=== PATIENT | female | born 1950 | race African-American/Black ===

== ENCOUNTER 2017-01-22 04:46 | Inpatient (IN) | payer MEDICARE, MEDICAID ==
[~2017-01-22] VITALS: Ht 165.1 cm; Wt 54.6 kg
[~2017-01-22 04:46] MED LIST: AMLO10TA2 PO; B-COTAB10 PO; BACL-63 PO; CALC-317 PO; CINA30TA2 PO; DOXY-216 PO; FLUT500M2 INH; GEMF600T3 PO; MEGE40SU PO; METO-158 PO; NOR5T PO; OMEPRAZOLE PO; SEVE800T8 PO; TIOTCAP INH
[2017-01-22 05:27] LABS: Basophils # (auto) 0 uL; Basophils % (auto) 0.4 % (0.0-2.0); DEFINITIVE VIEW TRANSMISSION; Eosinophils # (auto) 0.1 uL; Eosinophils % (auto) 1.3 % (0.0-7.0); Hematocrit 37.1 % (36.0-46.0); Hemoglobin 12.4 g/dL (12.2-16.2); Lymphocytes # (auto) 1.4 uL; Lymphocytes % (auto) 18.6 % (10.0-50.0); Mean Corpuscular Hemoglobin 35.9 pg (28.0-32.0); Mean Corpuscular Hgb Conc. 33.4 g/dL (32.0-36.0); Mean Corpuscular Volume 107.4 fL (80.0-100.0); Mean Platelet Volume 6.8 fL (7.4-10.4); Monocytes # (auto) 0.7 uL; Monocytes % (auto) 9.4 % (0.0-12.0); Neutrophils # (auto) 5.2 uL; Neutrophils % (auto) 70.3 % (37.0-80.0); Platelet Count (auto) 401 10^3/uL (140-450); Red Cell Distribution Width 17.3 % (11.6-16.0); White Blood Cell 7.4 10^3/uL (4.4-10.8)
[2017-01-22 05:47] LABS: INR 1.08 (0.9-1.15); Partial Thromboplastin Time 27.1 sec (22.64-33.71); Prothrombin Time 11.1 sec (9.37-12.3)
[2017-01-22 05:54] LABS: Albumin 3.6 g/dL (3.4-5.0); Anion Gap 15 (5-15); Blood Urea Nitrogen 61 mg/dL (7-18); Calcium 8.5 mg/dL (8.5-10.1); Carbon Dioxide 24 mmol/L (21-32); Chloride 101 mmol/L (98-107); Glucose 85 mg/dL (74-106); Magnesium 2.9 mg/dL (1.6-2.6); Potassium 4.2 mmol/L (3.5-5.1); Sodium 140 mmol/L (136-145)
[2017-01-22 06:02] LABS: Alkaline Phosphatase 104 U/L (45-117); Aspartate Aminotransferase 14 U/L (15-37); BUN/Creatinine Ratio 4.8; Bilirubin, Total 0.4 mg/dL (0.2-1.0); GFR African American 4 mL/min; GFR Non-African American 3 mL/min; Total Protein 7.5 g/dL (6.4-8.2)
[2017-01-22] MEDS ORDERED: LORazepam 2MG/ML-1ML VIAL IV ONE ×2 (07:15→09:30)
[2017-01-22] MEDS ORDERED: LORazepam 2MG/ML-1ML VIAL IV PRN (12:15)
[2017-01-22] MEDS ORDERED: cloNIDine HCL 0.1 MG TAB PO PRN (12:15)
[2017-01-22] MEDS ORDERED: BACLOFEN 10 MG TAB PO PRN (12:15)
[2017-01-22] MEDS ORDERED: diphenhdrAMINE HCL 25 MG CAP PO PRN (12:30)
[2017-01-22] MEDS ORDERED: DOCUSATE SOD 100 MG CAP PO PRN (12:45)
[2017-01-22] MEDS ORDERED: MORPHINE SULF INJ 2 MG/ML SYRINGE 1ML IV PRN ×2 (12:45)
[2017-01-22] MEDS ORDERED: CINACALCET HYDROCHLORIDE 30 MG TAB PO ONE (12:45)
[2017-01-22] MEDS ORDERED: NITROGLYCERIN 0.4 MG SL TAB SL PRN (12:45)
[2017-01-22] MEDS ORDERED: ACETAMINOPHEN 325 MG TAB PO PRN (12:45)
[2017-01-22] MEDS ORDERED: TEMAZEPAM 15 MG CAP PO PRN (12:45)
[2017-01-22] MEDS ORDERED: ONDANSETRON HCL 4 MG/2 ML VIAL IV PRN (12:45)
[2017-01-22] MEDS ORDERED: ASPirin-EC 81 mg tab PO ONE (12:45)
[2017-01-22] MEDS ORDERED: amLODIPine BESYLATE 5 MG TAB PO ONE (13:15)
[2017-01-22] MEDS: B-COMPLEX W/ C & FOLIC ACID(NEPHROVITE TAB) PO SCH (13:15)
[2017-01-22] MEDS: CHOLECALCIFEROL (VITD3) 1,000 UNIT TAB PO SCH (13:15)
[2017-01-22] MEDS: LORazepam 2MG/ML-1ML VIAL IV PRN ×3 (13:19→20:32)
[2017-01-22] MEDS: GABAPENTIN 100 MG CAP PO SCH (13:30)
[2017-01-22] MEDS: MEGESTROL ACET 400MG/10ML ORAL SUSP PO SCH (13:30)
[2017-01-22] MEDS: SODIUM CHLOR 0.9% PF (SALINE LOCK) 10ML VIAL IV SCH ×2 (13:42→21:59)
[2017-01-22] MEDS: ENOXAPARIN SOD 30 MG/0.3 ML SYRINGE SC SCH (13:49)
[2017-01-22] MEDS ORDERED: METOPROLOL TARTRATE 50 MG TAB PO ONE (14:00)
[2017-01-22] MEDS: ALBUTEROL SULF 2.5 MG/0.5ML(0.5%) NEB SOLN NEB SCH ×2 (14:00→22:08)
[2017-01-22 17:10] VITALS: BP_SYST 167; BP_DIAS 90; BP_DIAS 96
[2017-01-22] MEDS: SEVELAMER 800 MG TAB PO SCH (18:00)
[2017-01-22 18:34] LABS: Urine Bilirubin Negative (Negative); Urine Color Yellow (Yellow); Urine Glucose TRACE mg/dL (Normal); Urine Ketone Negative (Negative); Urine Nitrite Negative (Negative); Urine RBC 6 /hpf (0 - 4); Urine Squamous Epithelial Cell FEW /hpf (<5); Urine Urobilinogen Normal (Negative); Urine pH 8.5 (5.0-8.0)
[2017-01-22 18:37] LABS: Urine Blood 2+ /uL (Negative)
[2017-01-22 20:00] VITALS: BP 154/100
[2017-01-22] MEDS: ATORVASTATIN 20 MG TAB PO SCH (21:53)
[2017-01-22] MEDS: METOPROLOL TARTRATE 50 MG TAB PO SCH (21:53)
[2017-01-22 22:00] VITALS: BP 154/100
[2017-01-22] MEDS ORDERED: GEMFIBROZIL 600 MG TAB PO SCH (22:00)
[2017-01-22] MEDS: BUDESONIDE (INHALATION) 0.5 MG/2 ML NEB NEB SCH (22:08)
[2017-01-22 22:49] VITALS: BP 151/100
[2017-01-23] VITALS (7 sets, daily range): BP systolic 132–185; BP diastolic 77–99
[2017-01-23] MEDS: LORazepam 2MG/ML-1ML VIAL IV PRN ×2 (03:22→16:15)
[2017-01-23] MEDS: SODIUM CHLOR 0.9% PF (SALINE LOCK) 10ML VIAL IV SCH ×3 (06:11→22:10)
[2017-01-23 06:32] LABS: Basophils # (auto) 0 uL; Basophils % (auto) 0.5 % (0.0-2.0); DEFINITIVE VIEW TRANSMISSION; Eosinophils # (auto) 0.1 uL; Eosinophils % (auto) 1.3 % (0.0-7.0); Hematocrit 33.7 % (36.0-46.0); Hemoglobin 11.1 g/dL (12.2-16.2); Lymphocytes # (auto) 0.9 uL; Lymphocytes % (auto) 14.2 % (10.0-50.0); Mean Corpuscular Hemoglobin 35.4 pg (28.0-32.0); Mean Corpuscular Hgb Conc. 32.9 g/dL (32.0-36.0); Mean Corpuscular Volume 107.5 fL (80.0-100.0); Mean Platelet Volume 7.1 fL (7.4-10.4); Monocytes # (auto) 0.6 uL; Monocytes % (auto) 9.6 % (0.0-12.0); Neutrophils # (auto) 4.9 uL; Neutrophils % (auto) 74.4 % (37.0-80.0); Platelet Count (auto) 365 10^3/uL (140-450); Red Cell Distribution Width 17.1 % (11.6-16.0); White Blood Cell 6.6 10^3/uL (4.4-10.8)
[2017-01-23 07:12] LABS: Potassium 4.8 mmol/L (3.5-5.1)
[2017-01-23 07:23] LABS: Albumin 3.3 g/dL (3.4-5.0); BUN/Creatinine Ratio 4.6; Bilirubin, Total 0.5 mg/dL (0.2-1.0); Calcium 8.2 mg/dL (8.5-10.1); Total Protein 6.8 g/dL (6.4-8.2)
[2017-01-23] MEDS: BUDESONIDE (INHALATION) 0.5 MG/2 ML NEB NEB SCH ×2 (07:26→22:26)
[2017-01-23] MEDS: ALBUTEROL SULF 2.5 MG/0.5ML(0.5%) NEB SOLN NEB SCH ×3 (07:26→22:26)
[2017-01-23] MEDS: SEVELAMER 800 MG TAB PO SCH ×3 (08:00→17:53)
[2017-01-23] MEDS: PANTOPRAZOLE 40 MG TAB PO SCH (10:00)
[2017-01-23] MEDS ORDERED: FLUTICASONE VILANTEROL IN SCH (10:00)
[2017-01-23] MEDS ORDERED: PATIENTS OWN MEDICATION PO SCH ×2 (10:00)
[2017-01-23] MEDS: METOPROLOL TARTRATE 50 MG TAB PO SCH ×2 (10:00→22:09)
[2017-01-23] MEDS: B-COMPLEX W/ C & FOLIC ACID(NEPHROVITE TAB) PO SCH (10:00)
[2017-01-23] MEDS: amLODIPine BESYLATE 5 MG TAB PO SCH (10:00)
[2017-01-23] MEDS: MEGESTROL ACET 400MG/10ML ORAL SUSP PO SCH (10:00)
[2017-01-23] MEDS: CHOLECALCIFEROL (VITD3) 1,000 UNIT TAB PO SCH (10:00)
[2017-01-23] MEDS: ASPirin-EC 81 mg tab PO SCH (10:00)
[2017-01-23] MEDS: GABAPENTIN 100 MG CAP PO SCH (10:00)
[2017-01-23] MEDS: SPIRIVA INHALER IN SCH (10:00)
[2017-01-23] MEDS: CINACALCET HYDROCHLORIDE 30 MG TAB PO SCH (10:00)
[2017-01-23] MEDS: ENOXAPARIN SOD 30 MG/0.3 ML SYRINGE SC SCH (10:40)
[2017-01-23] MEDS ORDERED: hydrALAZINE HCL 20 MG/ML VL IV PRN (15:15)
[2017-01-23] MEDS: SOD CHL 0.45% 1,000 ML IV SCH (16:20)
[2017-01-23] MEDS ORDERED: PHENYTOIN IV DILANTIN 1,000 MG in SODIUM CHL 0.9% 250 ML IV ONE (18:30)
[2017-01-23] MEDS: ATORVASTATIN 20 MG TAB PO SCH (22:09)
[2017-01-23] MEDS: PHENYTOIN SODIUM 100 MG CAP PO SCH (22:09)
[2017-01-24] VITALS (7 sets, daily range): BP systolic 135–177; BP diastolic 72–103
[2017-01-24] MEDS: SODIUM CHLOR 0.9% PF (SALINE LOCK) 10ML VIAL IV SCH ×3 (06:06→21:49)
[2017-01-24 06:22] LABS: Basophils # (auto) 0 uL; Basophils % (auto) 0.5 % (0.0-2.0); DEFINITIVE VIEW TRANSMISSION; Eosinophils # (auto) 0.1 uL; Eosinophils % (auto) 1.5 % (0.0-7.0); Hematocrit 35.3 % (36.0-46.0); Hemoglobin 11.6 g/dL (12.2-16.2); Lymphocytes # (auto) 1.4 uL; Lymphocytes % (auto) 17.8 % (10.0-50.0); Mean Corpuscular Hemoglobin 35.7 pg (28.0-32.0); Mean Platelet Volume 7.1 fL (7.4-10.4); Monocytes # (auto) 0.8 uL; Monocytes % (auto) 10.7 % (0.0-12.0); Neutrophils # (auto) 5.4 uL; Neutrophils % (auto) 69.5 % (37.0-80.0); Platelet Count (auto) 378 10^3/uL (140-450); Red Cell Distribution Width 17.4 % (11.6-16.0); White Blood Cell 7.8 10^3/uL (4.4-10.8)
[2017-01-24 06:48] LABS: BUN/Creatinine Ratio 4.2; Calcium 8.5 mg/dL (8.5-10.1)
[2017-01-24] MEDS: ALBUTEROL SULF 2.5 MG/0.5ML(0.5%) NEB SOLN NEB SCH ×3 (07:11→22:26)
[2017-01-24] MEDS: BUDESONIDE (INHALATION) 0.5 MG/2 ML NEB NEB SCH ×2 (07:12→22:26)
[2017-01-24 07:38] LABS: Potassium 5.8 mmol/L (3.5-5.1)
[2017-01-24] MEDS: SEVELAMER 800 MG TAB PO SCH ×3 (08:00→17:38)
[2017-01-24] MEDS ORDERED: IOHEXOL 350 MG/ML 100ML IJ ONE (08:17)
[2017-01-24] MEDS: SOD CHL 0.45% 1,000 ML IV SCH ×2 (08:18→17:37)
[2017-01-24] MEDS: LORazepam 2MG/ML-1ML VIAL IV PRN ×2 (08:25→15:47)
[2017-01-24] MEDS: PANTOPRAZOLE 40 MG TAB PO SCH (10:00)
[2017-01-24] MEDS: CINACALCET HYDROCHLORIDE 30 MG TAB PO SCH (10:00)
[2017-01-24] MEDS: ENOXAPARIN SOD 30 MG/0.3 ML SYRINGE SC SCH (10:00)
[2017-01-24] MEDS: B-COMPLEX W/ C & FOLIC ACID(NEPHROVITE TAB) PO SCH (10:00)
[2017-01-24] MEDS: CHOLECALCIFEROL (VITD3) 1,000 UNIT TAB PO SCH (10:00)
[2017-01-24] MEDS: amLODIPine BESYLATE 5 MG TAB PO SCH (10:00)
[2017-01-24] MEDS: GABAPENTIN 100 MG CAP PO SCH (10:00)
[2017-01-24] MEDS: ASPirin-EC 81 mg tab PO SCH (10:00)
[2017-01-24] MEDS: METOPROLOL TARTRATE 50 MG TAB PO SCH ×2 (10:00→21:56)
[2017-01-24] MEDS: SPIRIVA INHALER IN SCH (10:00)
[2017-01-24] MEDS: MEGESTROL ACET 400MG/10ML ORAL SUSP PO SCH (10:00)
[2017-01-24 15:24] LABS: Vitamin B12 > 2000 pg/mL (211-911)
[2017-01-24 15:34] LABS: Temperature: 22.9 C (20.0-25.0)
[2017-01-24] MEDS ORDERED: PHENYTOIN IV DILANTIN 300 MG in SODIUM CHL 0.9% 50 ML IV ONE (19:45)
[2017-01-24] MEDS: PHENYTOIN SODIUM 100 MG CAP PO SCH (21:44)
[2017-01-24] MEDS: ATORVASTATIN 20 MG TAB PO SCH (21:48)
[2017-01-25] VITALS (7 sets, daily range): BP systolic 130–153; BP diastolic 61–161
[2017-01-25] MEDS: LORazepam 2MG/ML-1ML VIAL IV PRN (01:38)
[2017-01-25] MEDS: SOD CHL 0.45% 1,000 ML IV SCH ×2 (01:43→20:20)
[2017-01-25] MEDS: SODIUM CHLOR 0.9% PF (SALINE LOCK) 10ML VIAL IV SCH ×3 (05:42→22:21)
[2017-01-25] MEDS: BUDESONIDE (INHALATION) 0.5 MG/2 ML NEB NEB SCH ×2 (07:11→22:24)
[2017-01-25] MEDS: ALBUTEROL SULF 2.5 MG/0.5ML(0.5%) NEB SOLN NEB SCH ×3 (07:11→22:24)
[2017-01-25 09:37] LABS: BUN/Creatinine Ratio 2.8; Calcium 9.1 mg/dL (8.5-10.1); Potassium 4.3 mmol/L (3.5-5.1)
[2017-01-25] MEDS: MEGESTROL ACET 400MG/10ML ORAL SUSP PO SCH (09:57)
[2017-01-25] MEDS: CINACALCET HYDROCHLORIDE 30 MG TAB PO SCH (09:57)
[2017-01-25] MEDS: PANTOPRAZOLE 40 MG TAB PO SCH (09:58)
[2017-01-25] MEDS: METOPROLOL TARTRATE 50 MG TAB PO SCH ×2 (09:58→22:18)
[2017-01-25] MEDS: SEVELAMER 800 MG TAB PO SCH ×3 (09:58→17:44)
[2017-01-25] MEDS: amLODIPine BESYLATE 5 MG TAB PO SCH (09:59)
[2017-01-25] MEDS: GABAPENTIN 100 MG CAP PO SCH (09:59)
[2017-01-25] MEDS: ENOXAPARIN SOD 30 MG/0.3 ML SYRINGE SC SCH (10:00)
[2017-01-25] MEDS: B-COMPLEX W/ C & FOLIC ACID(NEPHROVITE TAB) PO SCH (10:00)
[2017-01-25] MEDS: CHOLECALCIFEROL (VITD3) 1,000 UNIT TAB PO SCH (10:00)
[2017-01-25] MEDS: SPIRIVA INHALER IN SCH (10:00)
[2017-01-25] MEDS: ASPirin-EC 81 mg tab PO SCH (10:00)
[2017-01-25] MEDS: PHENYTOIN SODIUM 100 MG CAP PO SCH (22:00)
[2017-01-25] MEDS: ATORVASTATIN 20 MG TAB PO SCH (22:18)
[2017-01-26] VITALS (8 sets, daily range): BP systolic 124–150; BP diastolic 59–76
[2017-01-26] MEDS: SODIUM CHLOR 0.9% PF (SALINE LOCK) 10ML VIAL IV SCH ×3 (06:00→22:21)
[2017-01-26] MEDS: ALBUTEROL SULF 2.5 MG/0.5ML(0.5%) NEB SOLN NEB SCH ×3 (07:51→22:50)
[2017-01-26] MEDS: MEGESTROL ACET 400MG/10ML ORAL SUSP PO SCH (09:53)
[2017-01-26] MEDS: SEVELAMER 800 MG TAB PO SCH ×3 (09:54→17:46)
[2017-01-26] MEDS: CHOLECALCIFEROL (VITD3) 1,000 UNIT TAB PO SCH (09:54)
[2017-01-26] MEDS: GABAPENTIN 100 MG CAP PO SCH (09:54)
[2017-01-26] MEDS: B-COMPLEX W/ C & FOLIC ACID(NEPHROVITE TAB) PO SCH (09:54)
[2017-01-26] MEDS: ASPirin-EC 81 mg tab PO SCH (09:55)
[2017-01-26] MEDS: amLODIPine BESYLATE 5 MG TAB PO SCH (09:57)
[2017-01-26] MEDS: METOPROLOL TARTRATE 50 MG TAB PO SCH ×2 (09:58→22:21)
[2017-01-26] MEDS: PRAMIPEXOLE DIHYDROCHLORIDE MO 0.25 MG TAB PO SCH ×2 (09:58→22:21)
[2017-01-26] MEDS: PANTOPRAZOLE 40 MG TAB PO SCH (09:58)
[2017-01-26] MEDS: SOD CHL 0.45% 1,000 ML IV SCH (09:58)
[2017-01-26] MEDS: SPIRIVA INHALER IN SCH (09:59)
[2017-01-26] MEDS: ENOXAPARIN SOD 30 MG/0.3 ML SYRINGE SC SCH (09:59)
[2017-01-26] MEDS: BUDESONIDE (INHALATION) 0.5 MG/2 ML NEB NEB SCH ×2 (10:00→22:50)
[2017-01-26] MEDS: CINACALCET HYDROCHLORIDE 30 MG TAB PO SCH (10:03)
[2017-01-26] MEDS: HYDROcodone-ACET 7.5/325MG TAB PO PRN (17:47)
[2017-01-26] MEDS: PHENYTOIN SODIUM 100 MG CAP PO SCH (22:20)
[2017-01-26] MEDS: ATORVASTATIN 20 MG TAB PO SCH (22:21)
[2017-01-26] MEDS: IPRATROPIUM BROM 0.5 MG/2.5ML INH SOL NEB SCH (22:50)
[2017-01-27 05:00] VITALS: BP 140/72
[2017-01-27] MEDS: SODIUM CHLOR 0.9% PF (SALINE LOCK) 10ML VIAL IV SCH ×3 (06:00→22:55)
[2017-01-27] MEDS: BUDESONIDE (INHALATION) 0.5 MG/2 ML NEB NEB SCH ×2 (06:15→22:19)
[2017-01-27] MEDS: ALBUTEROL SULF 2.5 MG/0.5ML(0.5%) NEB SOLN NEB SCH ×3 (06:15→22:19)
[2017-01-27] MEDS: IPRATROPIUM BROM 0.5 MG/2.5ML INH SOL NEB SCH ×3 (06:15→22:19)
[2017-01-27 09:00] VITALS: BP 173/77
[2017-01-27] MEDS: SEVELAMER 800 MG TAB PO SCH ×3 (10:26→17:47)
[2017-01-27] MEDS: ASPirin-EC 81 mg tab PO SCH (10:26)
[2017-01-27] MEDS: B-COMPLEX W/ C & FOLIC ACID(NEPHROVITE TAB) PO SCH (10:26)
[2017-01-27] MEDS: GABAPENTIN 100 MG CAP PO SCH (10:26)
[2017-01-27] MEDS: PANTOPRAZOLE 40 MG TAB PO SCH (10:26)
[2017-01-27] MEDS: ENOXAPARIN SOD 30 MG/0.3 ML SYRINGE SC SCH (10:27)
[2017-01-27] MEDS: MEGESTROL ACET 400MG/10ML ORAL SUSP PO SCH (10:27)
[2017-01-27] MEDS: PRAMIPEXOLE DIHYDROCHLORIDE MO 0.25 MG TAB PO SCH ×2 (10:27→22:53)
[2017-01-27] MEDS: CHOLECALCIFEROL (VITD3) 1,000 UNIT TAB PO SCH (10:27)
[2017-01-27] MEDS: amLODIPine BESYLATE 5 MG TAB PO SCH (10:28)
[2017-01-27] MEDS: METOPROLOL TARTRATE 50 MG TAB PO SCH ×2 (10:28→22:54)
[2017-01-27] MEDS: CINACALCET HYDROCHLORIDE 30 MG TAB PO SCH (10:30)
[2017-01-27 13:00] VITALS: BP 126/62
[2017-01-27 16:39] VITALS: BP 135/67
[2017-01-27] MEDS: HYDROcodone-ACET 7.5/325MG TAB PO PRN (16:56)
[2017-01-27 20:10] VITALS: BP 120/64
[2017-01-27 22:00] VITALS: BP 120/64
[2017-01-27] MEDS: PHENYTOIN SODIUM 100 MG CAP PO SCH (22:53)
[2017-01-27] MEDS: ATORVASTATIN 20 MG TAB PO SCH (22:54)
[2017-01-28 05:00] VITALS: BP 124/67
[2017-01-28 06:00] LABS: Basophils # (auto) 0 uL; Basophils % (auto) 0.6 % (0.0-2.0); DEFINITIVE VIEW TRANSMISSION; Eosinophils # (auto) 0.2 uL; Eosinophils % (auto) 4.5 % (0.0-7.0); Hematocrit 32.8 % (36.0-46.0); Hemoglobin 10.9 g/dL (12.2-16.2); Lymphocytes % (auto) 21.2 % (10.0-50.0); Mean Corpuscular Hemoglobin 35.8 pg (28.0-32.0); Mean Corpuscular Hgb Conc. 33.1 g/dL (32.0-36.0); Mean Platelet Volume 7.2 fL (7.4-10.4); Monocytes # (auto) 0.7 uL; Monocytes % (auto) 14.2 % (0.0-12.0); Neutrophils # (auto) 2.9 uL; Neutrophils % (auto) 59.5 % (37.0-80.0); Platelet Count (auto) 286 10^3/uL (140-450); Red Cell Distribution Width 16.9 % (11.6-16.0); White Blood Cell 4.8 10^3/uL (4.4-10.8)
[2017-01-28] MEDS: SODIUM CHLOR 0.9% PF (SALINE LOCK) 10ML VIAL IV SCH ×3 (06:17→22:05)
[2017-01-28] MEDS: PRAMIPEXOLE DIHYDROCHLORIDE MO 0.25 MG TAB PO SCH ×2 (08:35→21:59)
[2017-01-28] MEDS: METOPROLOL TARTRATE 50 MG TAB PO SCH ×2 (09:42→21:59)
[2017-01-28] MEDS: amLODIPine BESYLATE 5 MG TAB PO SCH (09:43)
[2017-01-28] MEDS: GABAPENTIN 100 MG CAP PO SCH (09:49)
[2017-01-28] MEDS: ENOXAPARIN SOD 30 MG/0.3 ML SYRINGE SC SCH (09:49)
[2017-01-28] MEDS: MEGESTROL ACET 400MG/10ML ORAL SUSP PO SCH (09:49)
[2017-01-28] MEDS: CHOLECALCIFEROL (VITD3) 1,000 UNIT TAB PO SCH (09:49)
[2017-01-28] MEDS: PANTOPRAZOLE 40 MG TAB PO SCH (09:50)
[2017-01-28] MEDS: SEVELAMER 800 MG TAB PO SCH ×3 (09:50→17:41)
[2017-01-28] MEDS: ASPirin-EC 81 mg tab PO SCH (09:50)
[2017-01-28] MEDS: B-COMPLEX W/ C & FOLIC ACID(NEPHROVITE TAB) PO SCH (09:50)
[2017-01-28] MEDS: BUDESONIDE (INHALATION) 0.5 MG/2 ML NEB NEB SCH ×2 (10:00→22:28)
[2017-01-28] MEDS: CINACALCET HYDROCHLORIDE 30 MG TAB PO SCH (12:51)
[2017-01-28 13:00] VITALS: BP 122/55
[2017-01-28] MEDS: IPRATROPIUM BROM 0.5 MG/2.5ML INH SOL NEB SCH ×2 (14:00→22:29)
[2017-01-28] MEDS: ALBUTEROL SULF 2.5 MG/0.5ML(0.5%) NEB SOLN NEB SCH ×2 (14:00→22:28)
[2017-01-28] MEDS: HYDROcodone-ACET 7.5/325MG TAB PO PRN ×2 (14:26→20:45)
[2017-01-28 17:00] VITALS: BP 135/60
[2017-01-28 20:00] VITALS: BP 130/66
[2017-01-28] MEDS: ATORVASTATIN 20 MG TAB PO SCH (21:59)
[2017-01-28] MEDS: PHENYTOIN SODIUM 100 MG CAP PO SCH (21:59)
[2017-01-28 22:00] VITALS: BP 130/66
[2017-01-28 23:54] VITALS: BP 119/57
[2017-01-29 05:24] VITALS: BP 135/60
[2017-01-29] MEDS: ALBUTEROL SULF 2.5 MG/0.5ML(0.5%) NEB SOLN NEB SCH ×2 (05:40→14:33)
[2017-01-29] MEDS: BUDESONIDE (INHALATION) 0.5 MG/2 ML NEB NEB SCH (05:40)
[2017-01-29] MEDS: SODIUM CHLOR 0.9% PF (SALINE LOCK) 10ML VIAL IV SCH ×2 (06:07→14:00)
[2017-01-29 08:00] VITALS: BP 145/71
[2017-01-29 08:49] VITALS: BP 145/71
[2017-01-29] MEDS: MEGESTROL ACET 400MG/10ML ORAL SUSP PO SCH (09:38)
[2017-01-29] MEDS: GABAPENTIN 100 MG CAP PO SCH (09:38)
[2017-01-29] MEDS: ASPirin-EC 81 mg tab PO SCH (09:39)
[2017-01-29] MEDS: PRAMIPEXOLE DIHYDROCHLORIDE MO 0.25 MG TAB PO SCH (09:39)
[2017-01-29] MEDS: HYDROcodone-ACET 7.5/325MG TAB PO PRN ×2 (09:40→15:45)
[2017-01-29] MEDS: amLODIPine BESYLATE 5 MG TAB PO SCH (09:41)
[2017-01-29] MEDS: METOPROLOL TARTRATE 50 MG TAB PO SCH (09:41)
[2017-01-29] MEDS: CHOLECALCIFEROL (VITD3) 1,000 UNIT TAB PO SCH (09:41)
[2017-01-29] MEDS: SEVELAMER 800 MG TAB PO SCH ×2 (09:42→12:18)
[2017-01-29] MEDS: PANTOPRAZOLE 40 MG TAB PO SCH (09:42)
[2017-01-29] MEDS: B-COMPLEX W/ C & FOLIC ACID(NEPHROVITE TAB) PO SCH (09:42)
[2017-01-29] MEDS: ENOXAPARIN SOD 30 MG/0.3 ML SYRINGE SC SCH (09:43)
[2017-01-29] MEDS: CINACALCET HYDROCHLORIDE 30 MG TAB PO SCH (09:43)
[2017-01-29 12:32] VITALS: BP 135/68
[2017-01-29] MEDS: IPRATROPIUM BROM 0.5 MG/2.5ML INH SOL NEB SCH (14:33)
[2017-01-29 17:00] VITALS: BP 130/56
[2017-01-29 17:05] VITALS: BP 130/56
[2017-01-29] MEDS ORDERED: EPOETIN ALFA 2,000 UNIT/1 ML VIAL IV ONE (18:15)
[2017-01-30] MEDS ORDERED: EPOETIN ALFA 3,000 UNIT/1 ML VIAL IV ONE (08:00)
[2017-01-30] MEDS ORDERED: EPOETIN ALFA 2,000 UNIT/1 ML VIAL IV ONE (08:00)
[2017-01-30] MEDS ORDERED: SODIUM CHL 0.9% 1000 ML BAG XX ONE (08:00)
== END 2017-01-29 18:15 | DRG 52 ==
LOC: ER 04:46 → EDBD 04:46 → TELE 04:47 → TELE-WESTW 17:12 → WEST WING 01-28 03:50
PROVIDERS: ADMIT Internal Medicine; ATTEND Family Medicine
PROC: 5A1D60Z (ICD-10-PCS; principal; 2017-01-24)
DX: G93.41 Metabolic encephalopathy (principal); J96.00 Acute respiratory failure, unspecified whether with hypoxia or hypercapnia; I13.2 Hypertensive heart and chronic kidney disease with heart failure and with stage 5 chronic kidney disease, or end stage renal disease; N25.81 Secondary hyperparathyroidism of renal origin; N18.6 End stage renal disease; J44.9 Chronic obstructive pulmonary disease, unspecified; D63.8 Anemia in other chronic diseases classified elsewhere; G40.909 Epilepsy, unspecified, not intractable, without status epilepticus; I50.9 Heart failure, unspecified; D75.89 Other specified diseases of blood and blood-forming organs; M19.90 Unspecified osteoarthritis, unspecified site; G25.81 Restless legs syndrome; D53.9 Nutritional anemia, unspecified; F17.210 Nicotine dependence, cigarettes, uncomplicated; I65.22 Occlusion and stenosis of left carotid artery; T42.0X5A Adverse effect of hydantoin derivatives, initial encounter; Z79.82 Long term (current) use of aspirin; Z79.899 Other long term (current) drug therapy; Z87.11 Personal history of peptic ulcer disease; Z99.2 Dependence on renal dialysis; Z88.6 Allergy status to analgesic agent; Z82.49 Family history of ischemic heart disease and other diseases of the circulatory system; Z83.3 Family history of diabetes mellitus
CPT/HCPCS: 36415; 70450; 70498; 71010; 80048; 80053; 80185; 81001; 82607; 82728; 82746; 83540; 83550; 83605; 83735; 84132; 84484; 85025; 85610; 85730; 87040; 90935; 92610; 93005; 93306; 93886; 94640; 95819; 97001; Q4081

== ENCOUNTER 2017-05-23 14:41 | Emergency (ER) | payer MEDICARE, MEDICAID ==
[~2017-05-23] VITALS: Ht 152.4 cm; Wt 49.9 kg
[~2017-05-23 14:41] MED LIST changes: -DOXY-216 PO; +HYDR-4663 PO; -NOR5T PO
[2017-05-23 15:22] LABS: Basophils # (auto) 0 uL; Basophils % (auto) 0.2 % (0.0-2.0); CONDITION Y; DEFINITIVE SEE PRINTOUT; Eosinophils # (auto) 0 uL; Eosinophils % (auto) 0.3 % (0.0-7.0); Hematocrit 30.6 % (36.0-46.0); Hemoglobin 10.3 g/dL (12.2-16.2); Lymphocytes # (auto) 0.5 uL; Lymphocytes % (auto) 8.6 % (10.0-50.0); Mean Corpuscular Hemoglobin 37.1 pg (28.0-32.0); Mean Corpuscular Hgb Conc. 33.7 g/dL (32.0-36.0); Mean Corpuscular Volume 110.1 fL (80.0-100.0); Monocytes # (auto) 0.5 uL; Monocytes % (auto) 8.9 % (0.0-12.0); Platelet Count (auto) 308 10^3/uL (140-450); Red Cell Distribution Width 18.3 % (11.6-16.0); White Blood Cell 6.1 10^3/uL (4.4-10.8)
[2017-05-23 15:52] LABS: Anisocytosis Slight; Platelet Estimate Adequate
[2017-05-23 15:53] LABS: Albumin 3.2 g/dL (3.4-5.0); BUN/Creatinine Ratio 1.3; Bilirubin, Total 0.4 mg/dL (0.2-1.0); Calcium 8.3 mg/dL (8.5-10.1); Macrocytosis Moderate; Total Protein 6.8 g/dL (6.4-8.2)
[2017-05-23 15:56] LABS: INR 1.11 (0.9-1.15); Partial Thromboplastin Time 31.6 sec (22.64-33.71); Prothrombin Time 12.1 sec (9.37-12.3)
[2017-05-23 16:05] LABS: Potassium 2.9 mmol/L (3.5-5.1)
[2017-05-23] MEDS ORDERED: POTASSIUM CHL 10% (20 MEQ/15ML) ORAL SOLN PO ONE (16:30)
[2017-05-23] MEDS ORDERED: ALBUTEROL SULF 2.5 MG/0.5ML(0.5%) NEB SOLN NEB ONE (17:00)
[2017-05-23] MEDS ORDERED: IPRATROPIUM BROM 0.5 MG/2.5ML INH SOL NEB ONE (17:00)
[2017-05-23] MEDS ORDERED: OXYMETAZOLINE HCL 0.05 % NASAL SPRAY 15ML ONE (19:17)
[2017-05-23 19:30] VITALS: BP 142/84
[2017-05-23] MEDS ORDERED: HYDROcodone-ACET 10/325MG TAB PO ONE (19:45)
[2017-05-23] MEDS ORDERED: COCAINE HCL 4% TOP SOL 4ML TOP ONE (19:48)
[2017-05-23] MEDS ORDERED: PHYTONADIONE (VIT K)10 MG/ML 1ML VIAL SUBCUT ONE (20:45)
== END 2017-05-23 23:37 | disposition home or self-care (01) ==
LOC: EDBD 14:41 → ER 14:41
DX: R04.0 Epistaxis (principal); I13.2 Hypertensive heart and chronic kidney disease with heart failure and with stage 5 chronic kidney disease, or end stage renal disease; N18.6 End stage renal disease; I50.9 Heart failure, unspecified; D64.9 Anemia, unspecified; J44.9 Chronic obstructive pulmonary disease, unspecified; E87.6 Hypokalemia; E46 Unspecified protein-calorie malnutrition; M19.90 Unspecified osteoarthritis, unspecified site; F17.210 Nicotine dependence, cigarettes, uncomplicated; F12.10 Cannabis abuse, uncomplicated; Z88.8 Allergy status to other drugs, medicaments and biological substances; Z99.2 Dependence on renal dialysis
CPT/HCPCS: 36415; 80053; 85025; 85610; 85730; 96372; 99284; J3430

== ENCOUNTER 2017-05-25 11:15 | Emergency (ER) | payer MEDICARE, MEDICAID ==
[~2017-05-25] VITALS: Ht 149.9 cm; Wt 43.1 kg
[2017-05-25 12:00] VITALS: BP 152/59
== END 2017-05-25 12:54 | disposition home or self-care (01) ==
LOC: ER 11:15
DX: M19.90 Unspecified osteoarthritis, unspecified site (principal); J44.9 Chronic obstructive pulmonary disease, unspecified; K21.9 Gastro-esophageal reflux disease without esophagitis; E78.5 Hyperlipidemia, unspecified; N18.6 End stage renal disease; I12.0 Hypertensive chronic kidney disease with stage 5 chronic kidney disease or end stage renal disease; F17.210 Nicotine dependence, cigarettes, uncomplicated; F12.10 Cannabis abuse, uncomplicated; Z88.6 Allergy status to analgesic agent; Z79.899 Other long term (current) drug therapy; Z48.01 Encounter for change or removal of surgical wound dressing

== ENCOUNTER 2017-06-27 10:15 | Emergency (ER) | payer MEDICARE, MEDICAID ==
[~2017-06-27] VITALS: Ht 149.9 cm; Wt 54.4 kg
[2017-06-27] MEDS ORDERED: SODIUM CHLORIDE 0.9% 1,000 ML IV ONE (11:20)
[2017-06-27 11:48] LABS: Basophils # (auto) 0 uL; Basophils % (auto) 0.7 % (0.0-2.0); CONDITION Y; DEFINITIVE SEE PRINTOUT; Eosinophils # (auto) 0 uL; Eosinophils % (auto) 0.9 % (0.0-7.0); Hemoglobin 8.8 g/dL (12.2-16.2); Lymphocytes # (auto) 0.7 uL; Lymphocytes % (auto) 13.5 % (10.0-50.0); Mean Corpuscular Hemoglobin 39.4 pg (28.0-32.0); Mean Corpuscular Hgb Conc. 33.8 g/dL (32.0-36.0); Mean Corpuscular Volume 116.8 fL (80.0-100.0); Mean Platelet Volume 6.7 fL (7.4-10.4); Monocytes # (auto) 0.6 uL; Monocytes % (auto) 11.2 % (0.0-12.0); Neutrophils # (auto) 3.9 uL; Neutrophils % (auto) 73.7 % (37.0-80.0); Platelet Count (auto) 321 10^3/uL (140-450); Red Cell Distribution Width 18.7 % (11.6-16.0); White Blood Cell 5.3 10^3/uL (4.4-10.8)
[2017-06-27 12:04] LABS: Potassium 4.4 mmol/L (3.5-5.1)
[2017-06-27 12:12] LABS: Albumin 3.1 g/dL (3.4-5.0); BUN/Creatinine Ratio 4.4; Calcium 7.8 mg/dL (8.5-10.1); Magnesium 2.5 mg/dL (1.6-2.6)
[2017-06-27 12:18] LABS: Bilirubin, Total 0.5 mg/dL (0.2-1.0); Total Protein 6.7 g/dL (6.4-8.2)
[2017-06-27 13:31] LABS: Anisocytosis Slight; Macrocytosis Marked; Platelet Estimate Adequate; Stomatocytes Few
[2017-06-27 16:04] VITALS: BP 155/70
== END 2017-06-27 16:28 | disposition home or self-care (01) ==
LOC: ER 10:15 → EDBD 10:15 → ER 16:28
DX: I12.0 Hypertensive chronic kidney disease with stage 5 chronic kidney disease or end stage renal disease (principal); N18.6 End stage renal disease; E44.1 Mild protein-calorie malnutrition; M70.72 Other bursitis of hip, left hip; D64.9 Anemia, unspecified; J45.909 Unspecified asthma, uncomplicated; J44.9 Chronic obstructive pulmonary disease, unspecified; E78.5 Hyperlipidemia, unspecified; K21.9 Gastro-esophageal reflux disease without esophagitis; Z99.2 Dependence on renal dialysis
CPT/HCPCS: 36415; 73502; 80053; 82962; 83735; 84443; 85025; 93005; 94761; 96360; 96361; 99285; J7030

== ENCOUNTER → 2017-08-07 | Outpatient (CLI) | payer MEDICARE, MEDICAID ==
[~2017-08-07] MED LIST changes: +PHE100C PO
[2017-08-07 13:34] LABS: Allen Test Modified; Base Excess 2.1 mmol/L (-2.0-2.0); Blood 02Sat 80.3 % (96-100); Blood COHb 3.3 % (0.5-1.5); Blood MetHb 0.3 % (0.0-1.5); HCO3 26.7 mmol/L (22-26.0); MODE ROOM AIR; O2Hb 77.4 % (94.0-97.0); PCO2 41.4 mmHg (35.0-45.0); PCO2(T) 41.4 mmHg (35.0-45.0); PO2 46.2 mmHg (80.0-100.0); PO2(T) 46.2 mmHg (80.0-100.0); Sample Type Arterial; pH 7.427 (7.350-7.450)
== END ==
LOC: RT 12:53
PROVIDERS: ATTEND Internal Medicine
DX: J44.9 Chronic obstructive pulmonary disease, unspecified (principal)
CPT/HCPCS: 36600; 82805

== ENCOUNTER 2017-08-14 19:43 | Inpatient (IN) | payer MEDICARE, MEDICAID ==
[~2017-08-14] VITALS: Ht 157.5 cm; Wt 37.3 kg
[2017-08-14 20:50] LABS: Basophils # (auto) 0 uL; Eosinophils # (auto) 0.1 uL; Eosinophils % (auto) 1.4 % (0.0-7.0); Lymphocytes # (auto) 0.3 uL; Neutrophils # (auto) 4.4 uL
[2017-08-14 20:58] LABS: Basophils % (auto) 0.8 % (0.0-2.0); Hematocrit 41.4 % (36.0-46.0); Lymphocytes % (auto) 5.7 % (10.0-50.0); Mean Corpuscular Hemoglobin 39.9 pg (28.0-32.0); Mean Corpuscular Hgb Conc. 33.7 g/dL (32.0-36.0); Mean Corpuscular Volume 118.4 fL (80.0-100.0); Monocytes # (auto) 0.5 uL; Neutrophils % (auto) 83.1 % (37.0-80.0); Platelet Count (auto) 212 10^3/uL (140-450); White Blood Cell 5.3 10^3/uL (4.4-10.8)
[2017-08-14 21:04] LABS: Partial Thromboplastin Time 27.2 sec (22.64-33.71); Prothrombin Time 10.9 sec (9.37-12.3)
[2017-08-14 21:05] LABS: Albumin 3.5 g/dL (3.4-5.0); Anion Gap 14 (5-15); Aspartate Aminotransferase 21 U/L (15-37); BUN/Creatinine Ratio 4.8; Blood Urea Nitrogen 43 mg/dL (7-18); Calcium 8.6 mg/dL (8.5-10.1); Carbon Dioxide 26 mmol/L (21-32); Chloride 99 mmol/L (98-107); GFR African American 6 mL/min; GFR Non-African American 5 mL/min; Glucose 98 mg/dL (74-106); Magnesium 2.6 mg/dL (1.6-2.6); Sodium 139 mmol/L (136-145)
[2017-08-14 21:10] LABS: Alkaline Phosphatase 140 U/L (45-117); Bilirubin, Total 0.3 mg/dL (0.2-1.0); Total Protein 6.9 g/dL (6.4-8.2)
[2017-08-14 21:15] LABS: B-Type Natriuretic Peptide 266.03 pg/mL (0-100)
[2017-08-14 21:29] LABS: Temperature: 22.2 C (20.0-25.0)
[2017-08-14] MEDS ORDERED: ALBUTEROL SULF 2.5 MG/0.5ML(0.5%) NEB SOLN NEB ONE (21:30)
[2017-08-14] MEDS ORDERED: IPRATROPIUM BROM 0.5 MG/2.5ML INH SOL NEB ONE (21:30)
[2017-08-14] MEDS ORDERED: methylPREDNISolone SOD SUCC 125 MG/2 ML VL IV ONE (21:30)
[2017-08-14 21:37] LABS: Allen Test Yes; Base Excess -0.1 mmol/L (-2.0-2.0); Blood 02Sat 96.1 % (96-100); Blood COHb 1.7 % (0.5-1.5); Blood MetHb 0.4 % (0.0-1.5); HCO3 25.8 mmol/L (22-26.0); HHb 3.8 % (0.0-5.0); MODE NASAL CANNULA; O2Hb 94.1 % (94.0-97.0); PCO2 46.8 mmHg (35.0-45.0); PCO2(T) 46.8 mmHg (35.0-45.0); Sample Type Arterial
[2017-08-14 22:15] LABS: Macrocytosis Marked; Platelet Estimate Adequate
[2017-08-15] MEDS ORDERED: FUROSEMIDE 20 MG/2 ML VIAL IV ONE
[2017-08-15] MEDS ORDERED: PHENYTOIN SODIUM 100 MG CAP PO ONE (01:00)
[2017-08-15] MEDS ORDERED: AZITHROMYCIN 500MG/D5W 250ML 250 ML IV ONE (03:15)
[2017-08-15] MEDS ORDERED: ACETAMINOPHEN 500 MG TAB PO PRN (03:15)
[2017-08-15] MEDS ORDERED: DOXYCYCLINE HYC 100MG/250ML 250 ML IV ONE (04:00)
[2017-08-15] MEDS: ALBUTEROL SULF 2.5 MG/0.5ML(0.5%) NEB SOLN NEB SCH ×3 (05:47→19:25)
[2017-08-15] MEDS: IPRATROPIUM BROM 0.5 MG/2.5ML INH SOL NEB SCH ×3 (05:47→19:26)
[2017-08-15] MEDS: MORPHINE SULF INJ 2 MG/ML SYRINGE 1ML IV PRN ×3 (06:15→20:04)
[2017-08-15 06:23] LABS: Basophils # (auto) 0 uL; Basophils % (auto) 0.3 % (0.0-2.0); Eosinophils # (auto) 0 uL; Hematocrit 41.1 % (36.0-46.0); Hemoglobin 13.9 g/dL (12.2-16.2); Lymphocytes # (auto) 0.3 uL; Lymphocytes % (auto) 4.9 % (10.0-50.0); Mean Corpuscular Hemoglobin 39.9 pg (28.0-32.0); Mean Corpuscular Hgb Conc. 33.8 g/dL (32.0-36.0); Mean Corpuscular Volume 118.3 fL (80.0-100.0); Mean Platelet Volume 7.6 fL (6.9-10.8); Monocytes # (auto) 0.2 uL; Monocytes % (auto) 3.7 % (0.0-12.0); Neutrophils % (auto) 91.1 % (37.0-80.0); Platelet Count (auto) 221 10^3/uL (140-450); Red Cell Distribution Width 15.6 % (11.8-14.3); White Blood Cell 5.4 10^3/uL (4.4-10.8)
[2017-08-15 07:14] LABS: Ovalocytes FEW; Tear Drop Cells FEW
[2017-08-15 07:17] LABS: Macrocytosis Marked; Platelet Estimate Adequate
[2017-08-15 07:52] VITALS: BP 161/70
[2017-08-15] MEDS: SEVELAMER 800 MG TAB PO SCH ×3 (08:16→18:19)
[2017-08-15 08:42] LABS: BUN/Creatinine Ratio 4.9; Calcium 8.5 mg/dL (8.5-10.1)
[2017-08-15 08:50] LABS: Potassium 5.8 mmol/L (3.5-5.1)
[2017-08-15] MEDS: HYDROcodone-ACET 5/325MG TAB PO PRN (09:47)
[2017-08-15] MEDS: METOPROLOL TARTRATE 50 MG TAB PO SCH ×2 (09:56→21:26)
[2017-08-15] MEDS ORDERED: AZITHROMYCIN 500MG/D5W 250ML 250 ML IV SCH (10:00)
[2017-08-15] MEDS ORDERED: diphenhdrAMINE HCL 50 MG/1 ML VL IV PRN (10:45)
[2017-08-15] MEDS: diphenhdrAMINE HCL 50 MG/1 ML VL IV PRN (11:14)
[2017-08-15 12:24] LABS: Urine Bilirubin Negative (Negative); Urine Blood TRACE /uL (Negative); Urine Color Yellow (Yellow); Urine Glucose Normal (Normal); Urine Ketone Negative (Negative); Urine Nitrite Negative (Negative); Urine RBC 1 /hpf (0 - 4); Urine Squamous Epithelial Cell FEW /hpf (<5); Urine Urobilinogen Normal (Negative); Urine pH 7.5 (5.0-8.0)
[2017-08-15 16:59] VITALS: BP 134/65
[2017-08-15] MEDS: DOXYCYCLINE HYC 100MG/250ML 250 ML IV SCH (17:27)
[2017-08-15] MEDS: PHENYTOIN SODIUM 100 MG CAP PO SCH (21:26)
[2017-08-15 22:00] VITALS: BP 147/50
[2017-08-16] MEDS: IPRATROPIUM BROM 0.5 MG/2.5ML INH SOL NEB SCH ×4 (00:56→19:03)
[2017-08-16] MEDS: ALBUTEROL SULF 2.5 MG/0.5ML(0.5%) NEB SOLN NEB SCH ×4 (00:56→19:03)
[2017-08-16] MEDS: HYDROcodone-ACET 5/325MG TAB PO PRN ×5 (01:23→21:10)
[2017-08-16] MEDS: MORPHINE SULF INJ 2 MG/ML SYRINGE 1ML IV PRN ×2 (03:20→17:27)
[2017-08-16] MEDS: DOXYCYCLINE HYC 100MG/250ML 250 ML IV SCH (04:28)
[2017-08-16 05:00] VITALS: BP 119/54
[2017-08-16 05:40] LABS: Basophils # (auto) 0 uL; Basophils % (auto) 0.9 % (0.0-2.0); Eosinophils # (auto) 0.1 uL; Eosinophils % (auto) 2.7 % (0.0-7.0); Hematocrit 39.7 % (36.0-46.0); Hemoglobin 13.3 g/dL (12.2-16.2); Lymphocytes # (auto) 0.4 uL; Lymphocytes % (auto) 11.6 % (10.0-50.0); Mean Corpuscular Hemoglobin 39.3 pg (28.0-32.0); Mean Corpuscular Hgb Conc. 33.5 g/dL (32.0-36.0); Mean Corpuscular Volume 117.6 fL (80.0-100.0); Mean Platelet Volume 7.3 fL (6.9-10.8); Monocytes # (auto) 0.6 uL; Monocytes % (auto) 15.3 % (0.0-12.0); Neutrophils # (auto) 2.6 uL; Neutrophils % (auto) 69.5 % (37.0-80.0); Platelet Count (auto) 178 10^3/uL (140-450); Red Cell Distribution Width 15.6 % (11.8-14.3); White Blood Cell 3.8 10^3/uL (4.4-10.8)
[2017-08-16 06:05] LABS: Albumin 3.2 g/dL (3.4-5.0); BUN/Creatinine Ratio 3.6; Bilirubin, Total 0.4 mg/dL (0.2-1.0); Calcium 8.4 mg/dL (8.5-10.1); Potassium 4.9 mmol/L (3.5-5.1); Total Protein 6.8 g/dL (6.4-8.2)
[2017-08-16 07:23] VITALS: BP 106/77
[2017-08-16 07:40] LABS: Macrocytosis Marked; Platelet Estimate Adequate
[2017-08-16 07:42] LABS: Ovalocytes FEW
[2017-08-16 07:43] LABS: Tear Drop Cells FEW
[2017-08-16] MEDS: SEVELAMER 800 MG TAB PO SCH ×3 (09:11→18:04)
[2017-08-16] MEDS: METOPROLOL TARTRATE 50 MG TAB PO SCH ×2 (09:44→21:59)
[2017-08-16] MEDS ORDERED: predniSONE 20 MG TAB PO ONE (10:30)
[2017-08-16] MEDS ORDERED: BUDESONIDE (INHALATION) 0.5 MG/2 ML NEB NEB ONE (10:45)
[2017-08-16 11:32] VITALS: BP 151/59
[2017-08-16] MEDS: PANTOPRAZOLE 40 MG TAB PO SCH (12:22)
[2017-08-16] MEDS ORDERED: GABA-497 PO (14:37)
[2017-08-16] MEDS ORDERED: GABAPENTIN 300 MG CAP PO ONE (15:15)
[2017-08-16 16:27] VITALS: BP 119/49
[2017-08-16] MEDS: BUDESONIDE (INHALATION) 0.5 MG/2 ML NEB NEB SCH (19:03)
[2017-08-16 20:00] VITALS: BP 111/46
[2017-08-16] MEDS: DOXYCYCLINE 100 MG TAB/CAP PO SCH (21:58)
[2017-08-16] MEDS: PHENYTOIN SODIUM 100 MG CAP PO SCH (21:59)
[2017-08-16 22:00] VITALS: BP 111/46
[2017-08-17 05:00] VITALS: BP 136/68
[2017-08-17] MEDS: HYDROcodone-ACET 5/325MG TAB PO PRN ×2 (05:22→12:30)
[2017-08-17] MEDS: ALBUTEROL SULF 2.5 MG/0.5ML(0.5%) NEB SOLN NEB SCH ×3 (06:58→12:55)
[2017-08-17] MEDS: IPRATROPIUM BROM 0.5 MG/2.5ML INH SOL NEB SCH ×2 (06:59→12:55)
[2017-08-17] MEDS: BUDESONIDE (INHALATION) 0.5 MG/2 ML NEB NEB SCH (06:59)
[2017-08-17] MEDS: MORPHINE SULF INJ 2 MG/ML SYRINGE 1ML IV PRN (07:26)
[2017-08-17 07:27] VITALS: BP 124/69
[2017-08-17] MEDS: SEVELAMER 800 MG TAB PO SCH ×2 (08:00→12:33)
[2017-08-17] MEDS: diphenhdrAMINE HCL 50 MG/1 ML VL IV PRN (08:24)
[2017-08-17] MEDS: METOPROLOL TARTRATE 50 MG TAB PO SCH (10:00)
[2017-08-17] MEDS ORDERED: SALINE 0.65 % NASAL SPRAY 45ML BOTTLE EACHNOSTRI ONE (10:00)
[2017-08-17] MEDS ORDERED: predniSONE 20 MG TAB PO SCH (10:00)
[2017-08-17] MEDS ORDERED: GABAPENTIN 300 MG CAP PO SCH (10:00)
[2017-08-17] MEDS ORDERED: SALINE 0.65 % NASAL SPRAY 45ML BOTTLE EACHNOSTRI SCH ×2 (12:00)
[2017-08-17] MEDS: PANTOPRAZOLE 40 MG TAB PO SCH (12:31)
[2017-08-17] MEDS: DOXYCYCLINE 100 MG TAB/CAP PO SCH (12:31)
[2017-08-17 12:38] VITALS: BP 157/73
[2017-08-17 13:32] VITALS: BP 124/56
== END 2017-08-17 14:27 | disposition home or self-care (01) | DRG 291 ==
LOC: EDBD 19:43 → ER 19:48 → TELE 19:49 → TELE-E-ADS 08-15 08:58 → TELE-CENTR 08-15 15:46 → CENTRAL 08-16 10:25
PROVIDERS: ADMIT Nurse Practitioner Family; ATTEND Internal Medicine
PROC: 5A1D60Z (ICD-10-PCS; principal; 2017-08-15)
DX: I13.2 Hypertensive heart and chronic kidney disease with heart failure and with stage 5 chronic kidney disease, or end stage renal disease (principal); N18.6 End stage renal disease; J96.11 Chronic respiratory failure with hypoxia; J44.1 Chronic obstructive pulmonary disease with (acute) exacerbation; E87.5 Hyperkalemia; J45.901 Unspecified asthma with (acute) exacerbation; D64.9 Anemia, unspecified; K21.9 Gastro-esophageal reflux disease without esophagitis; E78.5 Hyperlipidemia, unspecified; M19.90 Unspecified osteoarthritis, unspecified site; F17.210 Nicotine dependence, cigarettes, uncomplicated; G40.909 Epilepsy, unspecified, not intractable, without status epilepticus; I50.9 Heart failure, unspecified; Z99.2 Dependence on renal dialysis; Z83.3 Family history of diabetes mellitus; Z82.49 Family history of ischemic heart disease and other diseases of the circulatory system; Z87.11 Personal history of peptic ulcer disease; Z79.51 Long term (current) use of inhaled steroids; Z88.8 Allergy status to other drugs, medicaments and biological substances
CPT/HCPCS: 36415; 36600; 71010; 80048; 80053; 80185; 81001; 82805; 83735; 83880; 84484; 85025; 85610; 85730; 87081; 90935; 93005; 94640; 96374; 96375; J3490

== ENCOUNTER → 2018-02-05 | Outpatient (CLI) | payer MEDICARE, MEDICAID ==
[~2018-02-05] MED LIST changes: +GABA300C10 PO; -HYDR-4663 PO; +HYDR-4683 PO
[2018-02-05 12:05] LABS: Basophils # (auto) 0.1 uL; Basophils % (auto) 1.3 % (0.0-2.0); Eosinophils # (auto) 0.1 uL; Hematocrit 42.9 % (36.0-46.0); Hemoglobin 13.9 g/dL (12.2-16.2); Lymphocytes # (auto) 0.8 uL; Lymphocytes % (auto) 20.2 % (10.0-50.0); Mean Corpuscular Hemoglobin 36.9 pg (28.0-32.0); Mean Corpuscular Hgb Conc. 32.3 g/dL (32.0-36.0); Mean Corpuscular Volume 114.3 fL (80.0-100.0); Monocytes # (auto) 0.5 uL; Monocytes % (auto) 11.5 % (0.0-12.0); Neutrophils # (auto) 2.6 uL; Nucleated Red Blood Cells % 0.2 %; Platelet Count (auto) 167 10^3/uL (140-450); Red Blood Cells 3.75 10^6/uL (4.0-5.20); Red Cell Distribution Width 17.3 % (11.8-14.3); White Blood Cell 4.1 10^3/uL (4.4-10.8)
[2018-02-05 12:43] LABS: Albumin 3.3 g/dL (3.4-5.0); BUN/Creatinine Ratio 2.9; Bilirubin, Total 0.3 mg/dL (0.2-1.0); Calcium 6.5 mg/dL (8.5-10.1); Potassium 5.1 mmol/L (3.5-5.1); Total Protein 7.9 g/dL (6.4-8.2)
== END | disposition home or self-care (01) ==
LOC: LAB 11:41
PROVIDERS: ATTEND Internal Medicine
DX: I12.9 Hypertensive chronic kidney disease with stage 1 through stage 4 chronic kidney disease, or unspecified chronic kidney disease (principal); N18.6 End stage renal disease; J44.9 Chronic obstructive pulmonary disease, unspecified
CPT/HCPCS: 36415; 80053; 82150; 83690; 85025; 85652

== ENCOUNTER → 2018-02-12 | Outpatient (CLI) | payer MEDICARE, MEDICAID | END | disposition home or self-care (01) | LOC: XY 08:33 | PROVIDERS: ATTEND Internal Medicine | DX: R10.9 Unspecified abdominal pain (principal); R11.0 Nausea; I12.0 Hypertensive chronic kidney disease with stage 5 chronic kidney disease or end stage renal disease; N18.6 End stage renal disease; J44.9 Chronic obstructive pulmonary disease, unspecified; Z79.899 Other long term (current) drug therapy | CPT/HCPCS: 78264; A9541 ==

== ENCOUNTER 2018-04-26 01:16 | Inpatient (IN) | payer MEDICARE, MEDICAID ==
[~2018-04-26] VITALS: Ht 149.9 cm; Wt 49.8 kg
[2018-04-26] MEDS ORDERED: methylPREDNISolone SOD SUCC 125 MG/2 ML VL IV ONE (01:45)
[2018-04-26] MEDS ORDERED: IPRATROPIUM BROM 0.5 MG/2.5ML INH SOL HHN ONE (01:45)
[2018-04-26] MEDS ORDERED: ALBUTEROL SULF 2.5 MG/0.5ML(0.5%) NEB SOLN HHN ONE (01:45)
[2018-04-26 02:10] LABS: Eosinophils # (auto) 0.2 uL; Monocytes # (auto) 0.6 uL; Neutrophils % (auto) 83.4 % (37.0-80.0)
[2018-04-26 02:12] LABS: Basophils # (auto) 0 uL; Basophils % (auto) 0.5 % (0.0-2.0); Eosinophils % (auto) 2.6 % (0.0-7.0); Hematocrit 26.7 % (36.0-46.0); Hemoglobin 8.9 g/dL (12.2-16.2); Lymphocytes # (auto) 0.7 uL; Lymphocytes % (auto) 7.2 % (10.0-50.0); Mean Corpuscular Hemoglobin 37.6 pg (28.0-32.0); Mean Corpuscular Hgb Conc. 33.3 g/dL (32.0-36.0); Mean Corpuscular Volume 112.8 fL (80.0-100.0); Monocytes % (auto) 6.3 % (0.0-12.0); Neutrophils # (auto) 7.6 uL; Platelet Count (auto) 263 10^3/uL (140-450); Red Blood Cells 2.37 10^6/uL (4.0-5.20); Red Cell Distribution Width 15.2 % (11.8-14.3); White Blood Cell 9.1 10^3/uL (4.4-10.8)
[2018-04-26 02:27] LABS: Albumin 3.2 g/dL (3.4-5.0); BUN/Creatinine Ratio 4.6; Calcium 7.9 mg/dL (8.5-10.1); Magnesium 2.5 mg/dL (1.6-2.6); Potassium 4.6 mmol/L (3.5-5.1)
[2018-04-26 02:32] LABS: Bilirubin, Total 0.2 mg/dL (0.2-1.0); Total Protein 6.9 g/dL (6.4-8.2)
[2018-04-26 04:08] VITALS: BP 133/95
[2018-04-26 04:24] VITALS: BP 174/90
[2018-04-26] MEDS ORDERED: ENALAPRILAT 1.25 MG/ML-1ML VIAL IV ONE (04:45)
[2018-04-26] MEDS ORDERED: MORPHINE SULFATE 8mg/ml INJ SDV IV PRN (05:00)
[2018-04-26] MEDS ORDERED: NITROGLYCERIN 0.4 MG SL TAB SL PRN (05:00)
[2018-04-26] MEDS ORDERED: cloNIDine HCL 0.1 MG TAB PO PRN (05:00)
[2018-04-26] MEDS ORDERED: ONDANSETRON HCL 4 MG/2 ML VIAL IV PRN (05:15)
[2018-04-26] MEDS ORDERED: ACETAMINOPHEN 500 MG TAB PO PRN (05:15)
[2018-04-26] MEDS ORDERED: LORazepam 2MG/ML-1ML VIAL IV PRN (05:30)
[2018-04-26] MEDS ORDERED: GABAPENTIN 300 MG CAP PO SCH (06:00)
[2018-04-26] MEDS ORDERED: GABAPENTIN 100 MG CAP PO SCH (06:00)
[2018-04-26] MEDS: IPRATROPIUM BROM 0.5 MG/2.5ML INH SOL NEB SCH ×2 (06:15→11:27)
[2018-04-26] MEDS: ALBUTEROL SULF 2.5 MG/0.5ML(0.5%) NEB SOLN NEB SCH ×2 (06:15→11:27)
[2018-04-26] MEDS ORDERED: EPOETIN ALFA 10,000 UNIT/1 ML VIAL IV ONE (08:00)
[2018-04-26] MEDS ORDERED: SODIUM CHL 0.9% 1000 ML BAG XX ONE (08:00)
[2018-04-26 08:03] VITALS: BP 136/77
[2018-04-26] MEDS ORDERED: PHE100C PO (08:34)
[2018-04-26] MEDS ORDERED: TIOTCAP IN (08:34)
[2018-04-26] MEDS ORDERED: HYDRX10T PO (08:34)
[2018-04-26] MEDS ORDERED: ASPI81TA27 PO (08:34)
[2018-04-26] MEDS ORDERED: ATOR10TA52 PO (08:34)
[2018-04-26] MEDS ORDERED: FLUT100I IN (08:34)
[2018-04-26] MEDS ORDERED: PRA25T PO (08:34)
[2018-04-26] MEDS ORDERED: HYDR-4683 PO (08:34)
[2018-04-26] MEDS ORDERED: ALBUAER3 IN (08:35)
[2018-04-26] MEDS ORDERED: LACT10SO3 PO (08:35)
[2018-04-26] MEDS ORDERED: ALBU2TAB4 PO (08:35)
[2018-04-26] MEDS: SEVELAMER 800 MG TAB PO SCH ×2 (08:48→13:28)
[2018-04-26] MEDS: HYDROcodone-ACET 5/325MG TAB PO PRN ×2 (09:39→13:28)
[2018-04-26] MEDS ORDERED: amLODIPine BESYLATE 5 MG TAB PO SCH (10:00)
[2018-04-26] MEDS ORDERED: diphenhdrAMINE HCL 25 MG CAP PO ONE (10:00)
[2018-04-26 13:00] VITALS: BP 150/74
[2018-04-26 16:58] VITALS: BP 134/70
[2018-04-26 17:16] VITALS: BP 134/70
[2018-04-26] MEDS ORDERED: ATORVASTATIN 20 MG TAB PO SCH (22:00)
== END 2018-04-26 18:50 | disposition home or self-care (01) | DRG 140 ==
LOC: EDBD 01:16 → ER 01:19 → TELE 01:20 → TELE-WESTW 07:55
PROVIDERS: ADMIT Nurse Practitioner Family; ATTEND Family Medicine
PROC: 5A1D70Z Performance of Urinary Filtration, Intermittent, Less than 6 Hours Per Day (ICD-10-PCS; principal; 2018-04-26)
PROC: 5A09357 Assistance with Respiratory Ventilation, Less than 24 Consecutive Hours, Continuous Positive Airway Pressure (ICD-10-PCS; 2018-04-26)
DX: J44.0 Chronic obstructive pulmonary disease with (acute) lower respiratory infection (principal); I13.2 Hypertensive heart and chronic kidney disease with heart failure and with stage 5 chronic kidney disease, or end stage renal disease; N18.6 End stage renal disease; E11.22 Type 2 diabetes mellitus with diabetic chronic kidney disease; J44.1 Chronic obstructive pulmonary disease with (acute) exacerbation; Z99.2 Dependence on renal dialysis; M19.90 Unspecified osteoarthritis, unspecified site; E78.00 Pure hypercholesterolemia, unspecified; D63.8 Anemia in other chronic diseases classified elsewhere; F17.210 Nicotine dependence, cigarettes, uncomplicated; E78.5 Hyperlipidemia, unspecified; J20.9 Acute bronchitis, unspecified; I50.42 Chronic combined systolic (congestive) and diastolic (congestive) heart failure; K21.9 Gastro-esophageal reflux disease without esophagitis; R56.9 Unspecified convulsions; Z79.51 Long term (current) use of inhaled steroids; Z82.49 Family history of ischemic heart disease and other diseases of the circulatory system; Z87.11 Personal history of peptic ulcer disease; Z83.3 Family history of diabetes mellitus; Z99.81 Dependence on supplemental oxygen; R06.03 Acute respiratory distress
CPT/HCPCS: 36415; 36600; 71045; 80053; 82805; 83605; 83735; 83880; 84484; 85025; 87040; 87081; 90935; 93005; 94640; 94660; 94761; 96374; 96375; J0885; J1642

== ENCOUNTER 2018-06-10 06:10 | Inpatient (IN) | payer MEDICARE, MEDICAID ==
[~2018-06-10] VITALS: Ht 152.4 cm; Wt 45.4 kg
[2018-06-10] VITALS (32 sets, daily range): BP systolic 108–184; BP diastolic 51–105
[~2018-06-10 06:10] MED LIST changes: +ALBU2TAB4 PO; +ALBUAER3 IN; -AMLO10TA2 PO; +ASPI81TA27 PO; +ATOR10TA52 PO; -B-COTAB10 PO; -CALC-317 PO; +FLUT100I IN; -FLUT500M2 INH; -GEMF600T3 PO; +HYDRX10T PO; +LACT10SO3 PO; +PRA25T PO
[2018-06-10] MEDS ORDERED: ETOMIDATE (2MG/ML) 20ML VIAL IV ONE (06:30)
[2018-06-10] MEDS ORDERED: SUCCINYLCHOLINE CHLORIDE 20 MG/ML 10ML VIAL IV ONE (06:30)
[2018-06-10] MEDS ORDERED: MIDAZOLAM DRIP 50 mg/50mL 50 ML IV ONE (06:33)
[2018-06-10] MEDS ORDERED: MIDAZOLAM DRIP 50 mg/50mL 50 ML IV SCH (06:34)
[2018-06-10] MEDS ORDERED: PROPOFOL 100 ML IV SCH (06:47)
[2018-06-10] MEDS ORDERED: PROPOFOL 100 ML IV ONE (06:49)
[2018-06-10 07:04] LABS: Basophils # (auto) 0.1 uL; Lymphocytes # (auto) 1.3 uL; Monocytes % (auto) 4.6 % (0.0-12.0)
[2018-06-10 07:05] LABS: Basophils % (auto) 0.6 % (0.0-2.0); Eosinophils # (auto) 0.1 uL; Hematocrit 28.2 % (36.0-46.0); Lymphocytes % (auto) 11.2 % (10.0-50.0); Mean Corpuscular Volume 112.4 fL (80.0-100.0); Monocytes # (auto) 0.6 uL; Neutrophils # (auto) 9.9 uL; Neutrophils % (auto) 82.6 % (37.0-80.0); Nucleated Red Blood Cells % 0.1 %; Platelet Count (auto) 421 10^3/uL (140-450); Red Blood Cells 2.51 10^6/uL (4.0-5.20); Red Cell Distribution Width 17.5 % (11.8-14.3)
[2018-06-10 07:22] LABS: Alanine Aminotransferase 23 U/L (13-56); Albumin 3.1 g/dL (3.4-5.0); Anion Gap 11 (5-15); Aspartate Aminotransferase 39 U/L (15-37); BUN/Creatinine Ratio 6.6; Blood Urea Nitrogen 67 mg/dL (7-18); Calcium 6.8 mg/dL (8.5-10.1); Carbon Dioxide 24 mmol/L (21-32); Chloride 108 mmol/L (98-107); GFR African American 5 mL/min; GFR Non-African American 4 mL/min; Glucose 189 mg/dL (74-106); Magnesium 2.6 mg/dL (1.6-2.6); Potassium 5.4 mmol/L (3.5-5.1); Sodium 143 mmol/L (136-145)
[2018-06-10 07:24] LABS: Alkaline Phosphatase 184 U/L (45-117); Bilirubin, Total 0.2 mg/dL (0.2-1.0); Total Protein 7.3 g/dL (6.4-8.2)
[2018-06-10] MEDS ORDERED: PANTOPRAZOLE 40 MG/10 ML VIAL IV ONE (10:30)
[2018-06-10] MEDS ORDERED: cefTRIAXone 1GM/10ml IVPUSH 10 ML IV ONE (10:30)
[2018-06-10] MEDS ORDERED: LORazepam 2MG/ML-1ML VIAL IV PRN (10:30)
[2018-06-10] MEDS ORDERED: FAMOTIDINE (10MG/ML) 2ML VL IV ONE (10:30)
[2018-06-10] MEDS ORDERED: VANCOMYCIN PER PHARMACY 0 MG IV SCH (10:30)
[2018-06-10] MEDS ORDERED: ONDANSETRON HCL 4 MG/2 ML VIAL IV PRN (10:45)
[2018-06-10] MEDS ORDERED: MORPHINE SULF INJ 2 MG/ML SYRINGE 1ML IV PRN (10:45)
[2018-06-10] MEDS ORDERED: NITROGLYCERIN 0.4 MG SL TAB SL PRN (10:45)
[2018-06-10] MEDS: MIDAZOLAM DRIP 50 mg/50mL 50 ML IV SCH ×2 (10:50→18:17)
[2018-06-10] MEDS: PROPOFOL 100 ML IV SCH ×2 (10:50→18:16)
[2018-06-10] MEDS ORDERED: VANCOMYCIN 1GM/250ML 250 ML IV ONE (11:30)
[2018-06-10] MEDS: SODIUM CHLORIDE 0.9% 1,000 ML IV SCH ×2 (11:35→18:16)
[2018-06-10] MEDS: ENOXAPARIN SOD 30 MG/0.3 ML SYRINGE SC SCH (12:07)
[2018-06-10] MEDS: EPOETIN ALFA 10,000 UNIT/1 ML VIAL IV ONE ×2 (12:56→15:00)
[2018-06-10] MEDS: SODIUM CHL 0.9% 1000 ML BAG XX ONE ×2 (12:56→13:40)
[2018-06-10] MEDS: ALBUTEROL SULF 2.5 MG/0.5ML(0.5%) NEB SOLN NEB SCH ×3 (14:00→22:14)
[2018-06-10] MEDS: IPRATROPIUM BROM 0.5 MG/2.5ML INH SOL NEB SCH ×3 (14:00→22:15)
[2018-06-10] MEDS: PHENYTOIN SODIUM 50 MG/ML 2ML VIAL IV SCH ×2 (14:00→22:20)
[2018-06-11] VITALS (82 sets, daily range): BP systolic 88–198; BP diastolic 46–120
[2018-06-11] MEDS: ALBUTEROL SULF 2.5 MG/0.5ML(0.5%) NEB SOLN NEB SCH ×6 (02:19→22:00)
[2018-06-11] MEDS: IPRATROPIUM BROM 0.5 MG/2.5ML INH SOL NEB SCH ×6 (02:19→22:00)
[2018-06-11 04:00] LABS: Basophils # (auto) 0 uL; Basophils % (auto) 0.5 % (0.0-2.0); Eosinophils # (auto) 0.1 uL; Eosinophils % (auto) 1.7 % (0.0-7.0); Hematocrit 28.4 % (36.0-46.0); Hemoglobin 9.3 g/dL (12.2-16.2); Lymphocytes # (auto) 0.5 uL; Lymphocytes % (auto) 15.5 % (10.0-50.0); Mean Corpuscular Hgb Conc. 32.6 g/dL (32.0-36.0); Mean Corpuscular Volume 107.3 fL (80.0-100.0); Monocytes # (auto) 0.3 uL; Monocytes % (auto) 10.3 % (0.0-12.0); Neutrophils # (auto) 2.3 uL; Platelet Count (auto) 260 10^3/uL (140-450); Red Blood Cells 2.65 10^6/uL (4.0-5.20); Red Cell Distribution Width 16.9 % (11.8-14.3); White Blood Cell 3.2 10^3/uL (4.4-10.8)
[2018-06-11 04:07] LABS: Potassium 3.6 mmol/L (3.5-5.1)
[2018-06-11 04:16] LABS: Albumin 2.6 g/dL (3.4-5.0); Bilirubin, Total 0.3 mg/dL (0.2-1.0); Calcium 7.5 mg/dL (8.5-10.1); Total Protein 6.4 g/dL (6.4-8.2)
[2018-06-11] MEDS ORDERED: cefTRIAXone 1GM/10ml IVPUSH 10 ML IV SCH (09:00)
[2018-06-11] MEDS: DEXMEDETOMIDINE HCL 400 MCG in D5W 5% 96 ML IV SCH (09:00)
[2018-06-11] MEDS ORDERED: ENOXAPARIN SOD 40 MG/0.4 ML SYRINGE SC SCH (10:00)
[2018-06-11] MEDS ORDERED: FAMOTIDINE (10MG/ML) 2ML VL IV SCH (10:00)
[2018-06-11] MEDS: PANTOPRAZOLE 40 MG/10 ML VIAL IV SCH (10:00)
[2018-06-11] MEDS: ENOXAPARIN SOD 30 MG/0.3 ML SYRINGE SC SCH (10:00)
[2018-06-11] MEDS ORDERED: PIPERACILLIN-TAZOB 3.375GM 100 ML IV ONE (12:15)
[2018-06-11] MEDS: MORPHINE SULF INJ 2 MG/ML SYRINGE 1ML IV PRN ×2 (14:20→19:57)
[2018-06-11] MEDS: PHENYTOIN SODIUM 50 MG/ML 2ML VIAL IV SCH ×2 (14:29→21:41)
[2018-06-11] MEDS ORDERED: ALBUTEROL SULF 2.5 MG/0.5ML(0.5%) NEB SOLN NEB PRN (16:45)
[2018-06-11] MEDS ORDERED: IPRATROPIUM BROM 0.5 MG/2.5ML INH SOL NEB PRN (16:45)
[2018-06-11] MEDS: SODIUM CHLORIDE 0.9% 1,000 ML IV SCH (19:51)
[2018-06-11] MEDS: PIPERACILLIN-TAZOB 2.25GM 50 ML IV SCH (21:41)
[2018-06-12] VITALS (35 sets, daily range): BP systolic 122–164; BP diastolic 56–89
[2018-06-12] MEDS: MORPHINE SULF INJ 2 MG/ML SYRINGE 1ML IV PRN ×5 (00:05→22:17)
[2018-06-12] MEDS: IPRATROPIUM BROM 0.5 MG/2.5ML INH SOL NEB SCH ×5 (02:54→23:05)
[2018-06-12] MEDS: ALBUTEROL SULF 2.5 MG/0.5ML(0.5%) NEB SOLN NEB SCH ×5 (02:54→23:06)
[2018-06-12] MEDS ORDERED: methylPREDNISolone SOD SUCC 125 MG/2 ML VL IV ONE (03:30)
[2018-06-12 04:12] LABS: Basophils # (auto) 0 uL; Basophils % (auto) 0.3 % (0.0-2.0); Eosinophils # (auto) 0.1 uL; Hematocrit 23.9 % (36.0-46.0); Hemoglobin 7.9 g/dL (12.2-16.2); Lymphocytes # (auto) 0.4 uL; Mean Corpuscular Hemoglobin 35.5 pg (28.0-32.0); Mean Corpuscular Hgb Conc. 33.2 g/dL (32.0-36.0); Mean Corpuscular Volume 106.9 fL (80.0-100.0); Monocytes # (auto) 0.4 uL; Neutrophils % (auto) 79.7 % (37.0-80.0); Nucleated Red Blood Cells % 0.1 %; Platelet Count (auto) 233 10^3/uL (140-450); Red Blood Cells 2.23 10^6/uL (4.0-5.20); Red Cell Distribution Width 16.8 % (11.8-14.3)
[2018-06-12 04:18] LABS: BUN/Creatinine Ratio 5.2; Calcium 6.9 mg/dL (8.5-10.1)
[2018-06-12] MEDS: PHENYTOIN SODIUM 50 MG/ML 2ML VIAL IV SCH ×3 (06:04→22:16)
[2018-06-12] MEDS ORDERED: SODIUM CHL 0.9% 1000 ML BAG XX ONE (08:00)
[2018-06-12] MEDS: DEXMEDETOMIDINE HCL 400 MCG in D5W 5% 96 ML IV SCH (08:07)
[2018-06-12] MEDS ORDERED: EPOETIN ALFA 10,000 UNIT/1 ML VIAL IV ONE ×2 (09:00→15:15)
[2018-06-12] MEDS: ENOXAPARIN SOD 30 MG/0.3 ML SYRINGE SC SCH (09:59)
[2018-06-12] MEDS: PIPERACILLIN-TAZOB 2.25GM 50 ML IV SCH ×2 (10:00→22:16)
[2018-06-12] MEDS: PANTOPRAZOLE 40 MG/10 ML VIAL IV SCH (10:00)
[2018-06-12] MEDS: HYDROcodone-ACET 5/325MG TAB PO PRN ×2 (13:21→19:44)
[2018-06-12] MEDS ORDERED: diphenhdrAMINE HCL 50 MG/1 ML VL IV ONE (14:15)
[2018-06-12] MEDS ORDERED: VANCOMYCIN 1GM/250ML 250 ML IV ONE (16:00)
[2018-06-13] MEDS: IPRATROPIUM BROM 0.5 MG/2.5ML INH SOL NEB SCH ×6 (02:00→22:19)
[2018-06-13] MEDS: ALBUTEROL SULF 2.5 MG/0.5ML(0.5%) NEB SOLN NEB SCH ×6 (02:00→22:18)
[2018-06-13] MEDS: HYDROcodone-ACET 5/325MG TAB PO PRN ×5 (02:08→21:09)
[2018-06-13] MEDS: MORPHINE SULF INJ 2 MG/ML SYRINGE 1ML IV PRN ×5 (03:08→22:54)
[2018-06-13] MEDS: SODIUM CHLORIDE 0.9% 1,000 ML IV SCH ×3 (04:46→21:11)
[2018-06-13 04:59] VITALS: BP 120/61
[2018-06-13] MEDS: PHENYTOIN SODIUM 50 MG/ML 2ML VIAL IV SCH ×3 (05:58→21:08)
[2018-06-13 07:04] LABS: Basophils # (auto) 0 uL; Hemoglobin 7.4 g/dL (12.2-16.2); Monocytes # (auto) 0.5 uL; Neutrophils # (auto) 4.7 uL
[2018-06-13 07:07] LABS: Basophils % (auto) 0.2 % (0.0-2.0); Eosinophils # (auto) 0 uL; Eosinophils % (auto) 0.7 % (0.0-7.0); Hematocrit 21.6 % (36.0-46.0); Lymphocytes # (auto) 0.4 uL; Lymphocytes % (auto) 7.8 % (10.0-50.0); Mean Corpuscular Hgb Conc. 34.3 g/dL (32.0-36.0); Monocytes % (auto) 8.2 % (0.0-12.0); Neutrophils % (auto) 83.1 % (37.0-80.0); Platelet Count (auto) 281 10^3/uL (140-450); Red Cell Distribution Width 17.1 % (11.8-14.3); White Blood Cell 5.6 10^3/uL (4.4-10.8)
[2018-06-13 07:27] LABS: BUN/Creatinine Ratio 4.6; Calcium 6.7 mg/dL (8.5-10.1); Potassium 3.3 mmol/L (3.5-5.1)
[2018-06-13] MEDS: ENOXAPARIN SOD 30 MG/0.3 ML SYRINGE SC SCH (08:28)
[2018-06-13] MEDS: PANTOPRAZOLE 40 MG/10 ML VIAL IV SCH (08:28)
[2018-06-13] MEDS: PIPERACILLIN-TAZOB 2.25GM 50 ML IV SCH ×2 (08:37→21:08)
[2018-06-13 09:02] VITALS: BP 114/69
[2018-06-13] MEDS ORDERED: POTASSIUM CHL 20 Meq TABLET PO ONE (09:15)
[2018-06-13 09:20] VITALS: BP 114/69
[2018-06-13] MEDS ORDERED: PIPERACILLIN-TAZOB 0.75 GM in D5W 5% 50 ML IV PRN (10:00)
[2018-06-13] MEDS: FOLIC ACID 1 MG TAB PO SCH (11:07)
[2018-06-13 12:29] VITALS: BP 119/66
[2018-06-13 17:04] VITALS: BP 117/76
[2018-06-13] MEDS ORDERED: VANCOMYCIN 750 MG in D5W 5% 250 ML IV ONE (20:00)
[2018-06-13 22:00] VITALS: BP 116/62
[2018-06-14] MEDS: HYDROcodone-ACET 5/325MG TAB PO PRN ×4 (01:08→19:48)
[2018-06-14] MEDS: ALBUTEROL SULF 2.5 MG/0.5ML(0.5%) NEB SOLN NEB SCH ×6 (02:25→22:05)
[2018-06-14] MEDS: IPRATROPIUM BROM 0.5 MG/2.5ML INH SOL NEB SCH ×6 (02:25→22:05)
[2018-06-14] MEDS: MORPHINE SULF INJ 2 MG/ML SYRINGE 1ML IV PRN ×4 (03:02→21:01)
[2018-06-14] MEDS: PHENYTOIN SODIUM 50 MG/ML 2ML VIAL IV SCH ×3 (04:59→21:30)
[2018-06-14 05:30] VITALS: BP 123/77
[2018-06-14 06:35] LABS: Hemoglobin 7.5 g/dL (12.2-16.2); Monocytes # (auto) 0.5 uL; White Blood Cell 5.2 10^3/uL (4.4-10.8)
[2018-06-14 06:46] LABS: Basophils # (auto) 0 uL; Basophils % (auto) 0.4 % (0.0-2.0); Eosinophils # (auto) 0.1 uL; Eosinophils % (auto) 2.1 % (0.0-7.0); Hematocrit 22.2 % (36.0-46.0); Lymphocytes # (auto) 0.5 uL; Lymphocytes % (auto) 10.3 % (10.0-50.0); Mean Corpuscular Hemoglobin 36.6 pg (28.0-32.0); Mean Corpuscular Hgb Conc. 33.9 g/dL (32.0-36.0); Mean Corpuscular Volume 107.8 fL (80.0-100.0); Monocytes % (auto) 8.7 % (0.0-12.0); Neutrophils # (auto) 4.1 uL; Neutrophils % (auto) 78.5 % (37.0-80.0); Platelet Count (auto) 306 10^3/uL (140-450); Red Blood Cells 2.06 10^6/uL (4.0-5.20); Red Cell Distribution Width 16.2 % (11.8-14.3)
[2018-06-14 06:51] LABS: Calcium 7.1 mg/dL (8.5-10.1); Potassium 3.8 mmol/L (3.5-5.1)
[2018-06-14 06:58] LABS: BUN/Creatinine Ratio 4.7
[2018-06-14 08:50] VITALS: BP 120/71
[2018-06-14] MEDS: ENOXAPARIN SOD 30 MG/0.3 ML SYRINGE SC SCH (09:48)
[2018-06-14] MEDS: FOLIC ACID 1 MG TAB PO SCH (09:48)
[2018-06-14] MEDS: PIPERACILLIN-TAZOB 2.25GM 50 ML IV SCH (09:48)
[2018-06-14] MEDS: PANTOPRAZOLE 40 MG/10 ML VIAL IV SCH (09:48)
[2018-06-14 12:21] VITALS: BP 115/77
[2018-06-14] MEDS ORDERED: diphenhdrAMINE HCL 50 MG/1 ML VL IV ONE (14:00)
[2018-06-14] MEDS ORDERED: LIDOCAINE HCL 1 % PF INJ 2ML AMP IJ ONE (14:00)
[2018-06-14] MEDS ORDERED: EPOETIN ALFA 10,000 UNIT/1 ML VIAL IV ONE (14:00)
[2018-06-14] MEDS ORDERED: SODIUM CHL 0.9% 1000 ML BAG XX ONE (14:00)
[2018-06-14 17:16] VITALS: BP 154/79
[2018-06-14 22:00] VITALS: BP 160/64
[2018-06-14 22:30] VITALS: BP 143/58
[2018-06-15] MEDS: HYDROcodone-ACET 5/325MG TAB PO PRN ×6 (00:03→21:13)
[2018-06-15] MEDS: MORPHINE SULF INJ 2 MG/ML SYRINGE 1ML IV PRN ×6 (01:00→23:49)
[2018-06-15] MEDS: ALBUTEROL SULF 2.5 MG/0.5ML(0.5%) NEB SOLN NEB SCH ×6 (02:18→22:16)
[2018-06-15] MEDS: IPRATROPIUM BROM 0.5 MG/2.5ML INH SOL NEB SCH ×6 (02:18→22:16)
[2018-06-15 05:00] VITALS: BP 141/69
[2018-06-15] MEDS: PHENYTOIN SODIUM 50 MG/ML 2ML VIAL IV SCH ×3 (05:30→22:17)
[2018-06-15 06:14] LABS: Basophils # (auto) 0 uL; Basophils % (auto) 0.5 % (0.0-2.0); Eosinophils # (auto) 0.1 uL; Eosinophils % (auto) 3.1 % (0.0-7.0); Hematocrit 23.9 % (36.0-46.0); Hemoglobin 7.9 g/dL (12.2-16.2); Lymphocytes # (auto) 0.6 uL; Lymphocytes % (auto) 13.7 % (10.0-50.0); Mean Corpuscular Hemoglobin 36.5 pg (28.0-32.0); Mean Corpuscular Hgb Conc. 33.1 g/dL (32.0-36.0); Mean Corpuscular Volume 110.2 fL (80.0-100.0); Monocytes # (auto) 0.5 uL; Monocytes % (auto) 10.9 % (0.0-12.0); Neutrophils # (auto) 3.2 uL; Neutrophils % (auto) 71.8 % (37.0-80.0); Nucleated Red Blood Cells % 0.1 %; Platelet Count (auto) 279 10^3/uL (140-450); Red Blood Cells 2.17 10^6/uL (4.0-5.20); Red Cell Distribution Width 16.8 % (11.8-14.3); White Blood Cell 4.4 10^3/uL (4.4-10.8)
[2018-06-15 06:40] LABS: Albumin 2.5 g/dL (3.4-5.0); BUN/Creatinine Ratio 3.2; Bilirubin, Total 0.2 mg/dL (0.2-1.0); Calcium 7.5 mg/dL (8.5-10.1); Total Protein 6.2 g/dL (6.4-8.2)
[2018-06-15 09:00] VITALS: BP 144/70
[2018-06-15] MEDS: FOLIC ACID 1 MG TAB PO SCH (09:47)
[2018-06-15] MEDS: PANTOPRAZOLE 40 MG/10 ML VIAL IV SCH (09:47)
[2018-06-15] MEDS: ENOXAPARIN SOD 30 MG/0.3 ML SYRINGE SC SCH (09:47)
[2018-06-15 13:00] VITALS: BP 143/72
[2018-06-15 17:58] VITALS: BP 196/80
[2018-06-15 21:46] VITALS: BP 151/71
[2018-06-16] MEDS: HYDROcodone-ACET 5/325MG TAB PO PRN ×5 (02:04→20:19)
[2018-06-16] MEDS: ALBUTEROL SULF 2.5 MG/0.5ML(0.5%) NEB SOLN NEB SCH ×6 (02:08→22:11)
[2018-06-16] MEDS: IPRATROPIUM BROM 0.5 MG/2.5ML INH SOL NEB SCH ×6 (02:08→22:11)
[2018-06-16 04:55] VITALS: BP 196/95
[2018-06-16] MEDS: PHENYTOIN SODIUM 50 MG/ML 2ML VIAL IV SCH ×3 (06:20→21:31)
[2018-06-16] MEDS: MORPHINE SULF INJ 2 MG/ML SYRINGE 1ML IV PRN ×2 (06:21→10:57)
[2018-06-16 07:14] LABS: Basophils # (auto) 0 uL; Eosinophils # (auto) 0.2 uL; Hemoglobin 8.6 g/dL (12.2-16.2); Neutrophils # (auto) 3.3 uL; Nucleated Red Blood Cells % 0.1 %
[2018-06-16 07:16] LABS: Basophils % (auto) 0.5 % (0.0-2.0); Eosinophils % (auto) 3.3 % (0.0-7.0); Hematocrit 25.9 % (36.0-46.0); Lymphocytes # (auto) 0.7 uL; Lymphocytes % (auto) 15.3 % (10.0-50.0); Mean Corpuscular Hemoglobin 36.1 pg (28.0-32.0); Mean Corpuscular Hgb Conc. 33.1 g/dL (32.0-36.0); Monocytes # (auto) 0.5 uL; Monocytes % (auto) 11.3 % (0.0-12.0); Neutrophils % (auto) 69.6 % (37.0-80.0); Platelet Count (auto) 326 10^3/uL (140-450); Red Blood Cells 2.37 10^6/uL (4.0-5.20); White Blood Cell 4.7 10^3/uL (4.4-10.8)
[2018-06-16 07:26] LABS: Potassium 4.4 mmol/L (3.5-5.1)
[2018-06-16 07:29] LABS: BUN/Creatinine Ratio 3.2
[2018-06-16 09:00] VITALS: BP 152/74
[2018-06-16] MEDS: PANTOPRAZOLE 40 MG/10 ML VIAL IV SCH (09:16)
[2018-06-16] MEDS: FOLIC ACID 1 MG TAB PO SCH (09:16)
[2018-06-16] MEDS: ENOXAPARIN SOD 30 MG/0.3 ML SYRINGE SC SCH (09:16)
[2018-06-16 13:00] VITALS: BP 157/68
[2018-06-16 17:13] VITALS: BP 151/75
[2018-06-16 22:00] VITALS: BP 157/73
[2018-06-17] MEDS: HYDROcodone-ACET 5/325MG TAB PO PRN ×6 (00:16→22:49)
[2018-06-17 00:44] VITALS: BP 157/73
[2018-06-17] MEDS: IPRATROPIUM BROM 0.5 MG/2.5ML INH SOL NEB SCH ×6 (02:15→22:21)
[2018-06-17] MEDS: ALBUTEROL SULF 2.5 MG/0.5ML(0.5%) NEB SOLN NEB SCH ×6 (02:15→22:20)
[2018-06-17 04:56] VITALS: BP 178/82
[2018-06-17] MEDS: PHENYTOIN SODIUM 50 MG/ML 2ML VIAL IV SCH ×3 (06:08→22:32)
[2018-06-17 06:20] LABS: Basophils # (auto) 0 uL; Basophils % (auto) 0.7 % (0.0-2.0); Eosinophils # (auto) 0.1 uL; Mean Corpuscular Hgb Conc. 33.4 g/dL (32.0-36.0); Monocytes # (auto) 0.5 uL; Neutrophils # (auto) 3.5 uL
[2018-06-17 06:22] LABS: Eosinophils % (auto) 2.9 % (0.0-7.0); Lymphocytes # (auto) 0.6 uL; Lymphocytes % (auto) 12.7 % (10.0-50.0); Mean Corpuscular Hemoglobin 36.2 pg (28.0-32.0); Mean Corpuscular Volume 108.3 fL (80.0-100.0); Monocytes % (auto) 10.3 % (0.0-12.0); Neutrophils % (auto) 73.4 % (37.0-80.0); Nucleated Red Blood Cells % 0.1 %; Platelet Count (auto) 314 10^3/uL (140-450); Red Blood Cells 2.22 10^6/uL (4.0-5.20); Red Cell Distribution Width 16.3 % (11.8-14.3); White Blood Cell 4.7 10^3/uL (4.4-10.8)
[2018-06-17 06:41] LABS: Albumin 2.6 g/dL (3.4-5.0); BUN/Creatinine Ratio 3.5; Calcium 7.5 mg/dL (8.5-10.1); Potassium 4.6 mmol/L (3.5-5.1)
[2018-06-17 06:44] LABS: Bilirubin, Total 0.3 mg/dL (0.2-1.0); Total Protein 6.5 g/dL (6.4-8.2)
[2018-06-17] MEDS ORDERED: SODIUM CHL 0.9% 1000 ML BAG XX ONE (09:00)
[2018-06-17] MEDS ORDERED: EPOETIN ALFA 10,000 UNIT/1 ML VIAL IV ONE (09:00)
[2018-06-17 09:06] VITALS: BP 191/77
[2018-06-17] MEDS: FOLIC ACID 1 MG TAB PO SCH (10:00)
[2018-06-17] MEDS: PANTOPRAZOLE 40 MG/10 ML VIAL IV SCH (10:00)
[2018-06-17 10:03] VITALS: BP 160/71
[2018-06-17] MEDS: ENOXAPARIN SOD 30 MG/0.3 ML SYRINGE SC SCH (10:20)
[2018-06-17] MEDS ORDERED: diphenhdrAMINE HCL 50 MG/1 ML VL IV ONE (12:15)
[2018-06-17] MEDS ORDERED: fentaNYL CITRATE 100 MCG/2 ML VL IV ONE (15:15)
[2018-06-17] MEDS ORDERED: FLUMAZENIL 0.1 MG/ML INJ 10ML MDV IV ONE (15:15)
[2018-06-17] MEDS ORDERED: NALOXONE HCL 0.4 MG/ML VIAL IV ONE (15:15)
[2018-06-17] MEDS ORDERED: MIDAZOLAM HCL 1MG/1ML-2 ML VIAL IV ONE (15:15)
[2018-06-17 16:53] VITALS: BP 156/85
[2018-06-17] MEDS ORDERED: VANCOMYCIN 500 MG in D5W 5% 100 ML IV ONE (18:00)
[2018-06-17 22:00] VITALS: BP 151/62
[2018-06-18] MEDS: IPRATROPIUM BROM 0.5 MG/2.5ML INH SOL NEB SCH ×4 (02:19→14:07)
[2018-06-18] MEDS: ALBUTEROL SULF 2.5 MG/0.5ML(0.5%) NEB SOLN NEB SCH ×4 (02:19→14:07)
[2018-06-18] MEDS: HYDROcodone-ACET 5/325MG TAB PO PRN ×5 (03:00→15:52)
[2018-06-18 05:00] VITALS: BP 164/75
[2018-06-18] MEDS: PHENYTOIN SODIUM 50 MG/ML 2ML VIAL IV SCH ×2 (06:56→14:00)
[2018-06-18 07:19] LABS: Albumin 2.7 g/dL (3.4-5.0); BUN/Creatinine Ratio 2.7; Calcium 7.7 mg/dL (8.5-10.1); Potassium 4.1 mmol/L (3.5-5.1)
[2018-06-18 07:22] LABS: Bilirubin, Total 0.3 mg/dL (0.2-1.0); Total Protein 6.5 g/dL (6.4-8.2)
[2018-06-18 09:00] VITALS: BP 165/88
[2018-06-18] MEDS ORDERED: METOPROLOL TARTRATE 50 MG TAB PO SCH (10:45)
[2018-06-18] MEDS: PANTOPRAZOLE 40 MG/10 ML VIAL IV SCH (10:47)
[2018-06-18] MEDS: ENOXAPARIN SOD 30 MG/0.3 ML SYRINGE SC SCH (10:47)
[2018-06-18] MEDS: FOLIC ACID 1 MG TAB PO SCH (10:48)
[2018-06-18 13:14] VITALS: BP 143/91
[2018-06-19] MEDS ORDERED: EPOETIN ALFA 10,000 UNIT/1 ML VIAL IV ONE (11:30)
[2018-06-19] MEDS ORDERED: SODIUM CHL 0.9% 1000 ML BAG XX ONE (11:30)
== END 2018-06-18 18:45 | disposition left against medical advice (07) | DRG 720 ==
LOC: EDBD 06:10 → ER 06:16 → TELE 06:17 → ICU WEST 16:13 → TELE-EAST 06-12 18:29 → EAST 06-12 22:05 → TELE-EAST 06-12 22:07
PROVIDERS: ADMIT Internal Medicine; ATTEND Internal Medicine
PROC: 5A1945Z Respiratory Ventilation, 24-96 Consecutive Hours (ICD-10-PCS; principal; 2018-06-10)
PROC: 0BH17EZ Insertion of Endotracheal Airway into Trachea, Via Natural or Artificial Opening (ICD-10-PCS; 2018-06-10)
PROC: 5A1D70Z Performance of Urinary Filtration, Intermittent, Less than 6 Hours Per Day (ICD-10-PCS; 2018-06-10)
PROC: 5A1D70Z Performance of Urinary Filtration, Intermittent, Less than 6 Hours Per Day (ICD-10-PCS; 2018-06-12)
PROC: 5A1D70Z Performance of Urinary Filtration, Intermittent, Less than 6 Hours Per Day (ICD-10-PCS; 2018-06-14)
PROC: 5A1D70Z Performance of Urinary Filtration, Intermittent, Less than 6 Hours Per Day (ICD-10-PCS; 2018-06-17)
PROC: B246ZZ4 Ultrasonography of Right and Left Heart, Transesophageal (ICD-10-PCS; 2018-06-17)
DX: A41.01 Sepsis due to Methicillin susceptible Staphylococcus aureus (principal); J96.21 Acute and chronic respiratory failure with hypoxia; G93.41 Metabolic encephalopathy; I50.33 Acute on chronic diastolic (congestive) heart failure; J18.9 Pneumonia, unspecified organism; J44.0 Chronic obstructive pulmonary disease with (acute) lower respiratory infection; E44.0 Moderate protein-calorie malnutrition; N18.6 End stage renal disease; I43 Cardiomyopathy in diseases classified elsewhere; E11.21 Type 2 diabetes mellitus with diabetic nephropathy; E11.22 Type 2 diabetes mellitus with diabetic chronic kidney disease; I13.2 Hypertensive heart and chronic kidney disease with heart failure and with stage 5 chronic kidney disease, or end stage renal disease; J96.22 Acute and chronic respiratory failure with hypercapnia; R65.20 Severe sepsis without septic shock; J44.1 Chronic obstructive pulmonary disease with (acute) exacerbation; E87.5 Hyperkalemia; Z99.2 Dependence on renal dialysis; D63.1 Anemia in chronic kidney disease; E78.5 Hyperlipidemia, unspecified; F17.200 Nicotine dependence, unspecified, uncomplicated; G40.909 Epilepsy, unspecified, not intractable, without status epilepticus; I08.1 Rheumatic disorders of both mitral and tricuspid valves; I25.10 Atherosclerotic heart disease of native coronary artery without angina pectoris; J98.11 Atelectasis; K21.9 Gastro-esophageal reflux disease without esophagitis; K59.00 Constipation, unspecified; M19.90 Unspecified osteoarthritis, unspecified site; R04.0 Epistaxis; Z79.82 Long term (current) use of aspirin; Z82.49 Family history of ischemic heart disease and other diseases of the circulatory system; Z83.3 Family history of diabetes mellitus; Z87.11 Personal history of peptic ulcer disease; Z79.899 Other long term (current) drug therapy; Z88.8 Allergy status to other drugs, medicaments and biological substances; Z84.1 Family history of disorders of kidney and ureter; Z68.1 Body mass index [BMI] 19.9 or less, adult
CPT/HCPCS: 31500; 36415; 36600; 71045; 80048; 80053; 80185; 80202; 82533; 82805; 83036; 83605; 83735; 83880; 84443; 84484; 85025; 87040; 87070; 87077; 87081; 87186; 87205; 90935; 93005; 93306; 93312; 93313; 93930; 93970; 94002; 94003; 94640; 94761; 96365; 96372; 96375; 97116; 97163; 99152; 99291; A6257; C9113; J0696; J0885; J1642; J2250; J2543; J2704; J3490; J7060

== ENCOUNTER → 2018-07-04 | Outpatient (CLI) | payer MEDICARE, MEDICAID ==
[~2018-07-04] MED LIST changes: +DOX100T PO
== END | disposition home or self-care (01) ==
LOC: RT 12:40
PROVIDERS: ATTEND Internal Medicine
DX: J96.10 Chronic respiratory failure, unspecified whether with hypoxia or hypercapnia (principal); J44.9 Chronic obstructive pulmonary disease, unspecified; E78.5 Hyperlipidemia, unspecified
CPT/HCPCS: 36600; 82805

== ENCOUNTER → 2018-07-18 | Outpatient (CLI) | payer MEDICARE, MEDICAID ==
[~2018-07-18] VITALS: Ht 149.9 cm; Wt 44.5 kg
[~2018-07-18] MED LIST changes: +ADENOSINE 37 MG in GIVE UN-DILUTED 0 ML IV ONE; +ADENOSINE 90 MG/30 ML INJ IV ONE; +ALBUTEROL SULF 2.5 MG/0.5ML(0.5%) NEB SOLN ONE; -DOX100T PO
== END | disposition home or self-care (01) ==
LOC: Rad HDHVI 08:09
PROVIDERS: ATTEND Internal Medicine Cardiovascular Disease
DX: I13.2 Hypertensive heart and chronic kidney disease with heart failure and with stage 5 chronic kidney disease, or end stage renal disease (principal); N18.6 End stage renal disease; I50.33 Acute on chronic diastolic (congestive) heart failure; J44.9 Chronic obstructive pulmonary disease, unspecified; E78.5 Hyperlipidemia, unspecified; Z79.899 Other long term (current) drug therapy; Z79.82 Long term (current) use of aspirin
CPT/HCPCS: 78452; 93005; 96374; 96375; A9500; J0153

== ENCOUNTER 2018-08-08 19:52 | Inpatient (IN) | payer MEDICARE, MEDICAID ==
[~2018-08-08] VITALS: Ht 154.9 cm; Wt 46.0 kg
[~2018-08-08 19:52] MED LIST changes: -ADENOSINE 37 MG in GIVE UN-DILUTED 0 ML IV ONE; -ADENOSINE 90 MG/30 ML INJ IV ONE; -ALBUTEROL SULF 2.5 MG/0.5ML(0.5%) NEB SOLN ONE
[2018-08-08] MEDS ORDERED: IPRATROPIUM BROM 0.5 MG/2.5ML INH SOL ONE (20:03)
[2018-08-08] MEDS ORDERED: ALBUTEROL SULF 2.5 MG/0.5ML(0.5%) NEB SOLN ONE (20:03)
[2018-08-08] MEDS ORDERED: LABETALOL HCL 5 MG/ML ML 20ML VIAL IV ONE (20:15)
[2018-08-08] MEDS ORDERED: hydrALAZINE HCL 20 MG/ML VL IV ONE (20:15)
[2018-08-08 20:53] LABS: Basophils # (auto) 0 uL; Eosinophils # (auto) 0.1 uL; Hemoglobin 10.7 g/dL (12.2-16.2); Lymphocytes # (auto) 0.3 uL; Monocytes # (auto) 0.3 uL; Red Cell Distribution Width 17.2 % (11.8-14.3); White Blood Cell 4.8 10^3/uL (4.4-10.8)
[2018-08-08 20:55] LABS: Basophils % (auto) 0.5 % (0.0-2.0); Eosinophils % (auto) 2.7 % (0.0-7.0); Hematocrit 33.3 % (36.0-46.0); Lymphocytes % (auto) 6.6 % (10.0-50.0); Mean Corpuscular Hgb Conc. 32.1 g/dL (32.0-36.0); Mean Corpuscular Volume 112.3 fL (80.0-100.0); Monocytes % (auto) 7.1 % (0.0-12.0); Neutrophils % (auto) 83.1 % (37.0-80.0); Nucleated Red Blood Cells % 0.3 %; Platelet Count (auto) 245 10^3/uL (140-450); Red Blood Cells 2.97 10^6/uL (4.0-5.20)
[2018-08-08 21:10] LABS: Albumin 3.4 g/dL (3.4-5.0); BUN/Creatinine Ratio 3.5; Calcium 6.9 mg/dL (8.5-10.1); Potassium 4.7 mmol/L (3.5-5.1)
[2018-08-08 21:14] LABS: Bilirubin, Total 0.4 mg/dL (0.2-1.0); Total Protein 7.5 g/dL (6.4-8.2)
[2018-08-09 01:01] VITALS: BP 146/79
[2018-08-09] MEDS ORDERED: HYDROcodone-ACET 7.5/325MG TAB PO ONE (01:15)
[2018-08-09] MEDS ORDERED: TEMAZEPAM 15 MG CAP PO PRN (05:45)
[2018-08-09] MEDS ORDERED: ONDANSETRON HCL 4 MG/2 ML VIAL IV PRN (05:45)
[2018-08-09] MEDS ORDERED: cloNIDine HCL 0.1 MG TAB PO ONE (05:50)
[2018-08-09] MEDS: HYDROcodone-ACET 5/325MG TAB PO PRN ×4 (05:52→19:58)
[2018-08-09] MEDS: PANTOPRAZOLE 40 MG TAB PO SCH (08:36)
[2018-08-09 09:00] VITALS: BP 150/72
[2018-08-09] MEDS: SEVELAMER 800 MG TAB PO SCH ×3 (09:25→18:27)
[2018-08-09] MEDS: ACETAMINOPHEN 325 MG TAB PO PRN (09:26)
[2018-08-09] MEDS: PHENYTOIN SODIUM 100 MG CAP PO SCH (09:26)
[2018-08-09] MEDS: GABAPENTIN 100 MG CAP PO SCH ×2 (09:27→21:54)
[2018-08-09] MEDS: METOPROLOL TARTRATE 50 MG TAB PO SCH ×2 (09:27→21:53)
[2018-08-09] MEDS ORDERED: diphenhdrAMINE HCL 50 MG/1 ML VL IV ONE (12:00)
[2018-08-09] MEDS ORDERED: EPOETIN ALFA 10,000 UNIT/1 ML VIAL IV ONE (12:15)
[2018-08-09 13:00] VITALS: BP 131/69
[2018-08-09] MEDS: ALBUTEROL SULF 2.5 MG/0.5ML(0.5%) NEB SOLN NEB SCH ×3 (14:27→22:05)
[2018-08-09 16:27] VITALS: BP 154/68
[2018-08-09 17:03] VITALS: BP 162/81
[2018-08-09] MEDS: BUDESONIDE (INHALATION) 0.5 MG/2 ML NEB NEB SCH (18:52)
[2018-08-09] MEDS: IPRATROPIUM BROM 0.5 MG/2.5ML INH SOL NEB PRN ×2 (18:52→22:04)
[2018-08-09] MEDS: ATORVASTATIN 20 MG TAB PO SCH (21:53)
[2018-08-09 22:00] VITALS: BP 158/79
[2018-08-10] MEDS: IPRATROPIUM BROM 0.5 MG/2.5ML INH SOL NEB PRN ×3 (02:41→22:05)
[2018-08-10] MEDS: ALBUTEROL SULF 2.5 MG/0.5ML(0.5%) NEB SOLN NEB SCH ×6 (02:41→22:05)
[2018-08-10] MEDS: HYDROcodone-ACET 5/325MG TAB PO PRN ×6 (03:57→21:49)
[2018-08-10] MEDS: cloNIDine HCL 0.1 MG TAB PO PRN (04:16)
[2018-08-10 05:00] VITALS: BP 184/84
[2018-08-10 05:51] LABS: Basophils # (auto) 0 uL; Eosinophils # (auto) 0.1 uL; Hemoglobin 9.8 g/dL (12.2-16.2); Lymphocytes # (auto) 0.5 uL; Monocytes # (auto) 0.4 uL; Neutrophils # (auto) 3.5 uL; White Blood Cell 4.5 10^3/uL (4.4-10.8)
[2018-08-10 05:53] LABS: Basophils % (auto) 0.8 % (0.0-2.0); Eosinophils % (auto) 3.2 % (0.0-7.0); Lymphocytes % (auto) 11.5 % (10.0-50.0); Mean Corpuscular Hemoglobin 36.4 pg (28.0-32.0); Mean Corpuscular Hgb Conc. 32.8 g/dL (32.0-36.0); Mean Corpuscular Volume 110.9 fL (80.0-100.0); Monocytes % (auto) 8.4 % (0.0-12.0); Neutrophils % (auto) 76.1 % (37.0-80.0); Nucleated Red Blood Cells % 0.2 %; Platelet Count (auto) 180 10^3/uL (140-450); Red Blood Cells 2.71 10^6/uL (4.0-5.20)
[2018-08-10 06:17] LABS: Albumin 3.2 g/dL (3.4-5.0); Bilirubin, Total 0.4 mg/dL (0.2-1.0); Calcium 7.4 mg/dL (8.5-10.1); Potassium 4.1 mmol/L (3.5-5.1)
[2018-08-10] MEDS: PANTOPRAZOLE 40 MG TAB PO SCH (06:49)
[2018-08-10] MEDS ORDERED: LOSARTAN POTASSIUM 50 MG TAB PO ONE (07:45)
[2018-08-10] MEDS: ACETAMINOPHEN 325 MG TAB PO PRN (08:14)
[2018-08-10] MEDS: SEVELAMER 800 MG TAB PO SCH ×3 (08:14→17:48)
[2018-08-10 08:43] VITALS: BP 173/85
[2018-08-10] MEDS: GABAPENTIN 100 MG CAP PO SCH ×2 (10:05→21:48)
[2018-08-10] MEDS: PHENYTOIN SODIUM 100 MG CAP PO SCH (10:06)
[2018-08-10] MEDS: METOPROLOL TARTRATE 50 MG TAB PO SCH ×2 (10:07→21:55)
[2018-08-10] MEDS: BUDESONIDE (INHALATION) 0.5 MG/2 ML NEB NEB SCH ×2 (10:10→18:22)
[2018-08-10] MEDS ORDERED: DOXYCYCLINE 100 MG TAB/CAP PO ONE (11:15)
[2018-08-10] MEDS ORDERED: methylPREDNISolone SOD SUCC 40 MG/ML VL IV ONE (11:15)
[2018-08-10 12:23] VITALS: BP 135/70
[2018-08-10 16:53] VITALS: BP 142/67
[2018-08-10] MEDS ORDERED: amLODIPine BESYLATE 5 MG TAB PO ONE (18:00)
[2018-08-10] MEDS: methylPREDNISolone SOD SUCC 40 MG/ML VL IV SCH (21:48)
[2018-08-10] MEDS: ATORVASTATIN 20 MG TAB PO SCH (21:49)
[2018-08-10] MEDS: DOXYCYCLINE 100 MG TAB/CAP PO SCH (21:56)
[2018-08-10 21:57] VITALS: BP 159/81
[2018-08-11] MEDS: cloNIDine HCL 0.1 MG TAB PO PRN ×2 (00:59→22:42)
[2018-08-11] MEDS: HYDROcodone-ACET 5/325MG TAB PO PRN ×6 (01:59→22:42)
[2018-08-11] MEDS: IPRATROPIUM BROM 0.5 MG/2.5ML INH SOL NEB PRN ×5 (02:19→22:02)
[2018-08-11] MEDS: ALBUTEROL SULF 2.5 MG/0.5ML(0.5%) NEB SOLN NEB SCH ×6 (02:20→22:02)
[2018-08-11 05:09] VITALS: BP 137/70
[2018-08-11] MEDS: PANTOPRAZOLE 40 MG TAB PO SCH (06:11)
[2018-08-11] MEDS: methylPREDNISolone SOD SUCC 40 MG/ML VL IV SCH ×3 (06:11→21:19)
[2018-08-11] MEDS: SEVELAMER 800 MG TAB PO SCH ×3 (08:08→18:24)
[2018-08-11 09:00] VITALS: BP 173/82
[2018-08-11] MEDS: BUDESONIDE (INHALATION) 0.5 MG/2 ML NEB NEB SCH ×2 (09:55→19:22)
[2018-08-11] MEDS: PHENYTOIN SODIUM 100 MG CAP PO SCH (10:18)
[2018-08-11] MEDS: METOPROLOL TARTRATE 50 MG TAB PO SCH ×2 (10:18→21:25)
[2018-08-11] MEDS: GABAPENTIN 100 MG CAP PO SCH ×2 (10:19→21:18)
[2018-08-11] MEDS: DOXYCYCLINE 100 MG TAB/CAP PO SCH ×2 (10:19→21:19)
[2018-08-11] MEDS ORDERED: amLODIPine BESYLATE 5 MG TAB PO ONE (10:45)
[2018-08-11] MEDS ORDERED: LIDOCAINE 5% TOPICAL PATCH TOP ONE (11:15)
[2018-08-11] MEDS ORDERED: DOCUSATE SOD 100 MG CAP PO ONE (11:15)
[2018-08-11 13:10] VITALS: BP 140/71
[2018-08-11 16:49] VITALS: BP 129/70
[2018-08-11] MEDS: DOCUSATE SOD 100 MG CAP PO SCH (21:14)
[2018-08-11] MEDS: ATORVASTATIN 20 MG TAB PO SCH (21:18)
[2018-08-11 22:00] VITALS: BP 195/97
[2018-08-12] VITALS (7 sets, daily range): BP systolic 128–188; BP diastolic 65–86
[2018-08-12] MEDS: IPRATROPIUM BROM 0.5 MG/2.5ML INH SOL NEB PRN (01:50)
[2018-08-12] MEDS: ALBUTEROL SULF 2.5 MG/0.5ML(0.5%) NEB SOLN NEB SCH ×3 (01:50→10:04)
[2018-08-12] MEDS: HYDROcodone-ACET 5/325MG TAB PO PRN ×3 (03:05→12:09)
[2018-08-12] MEDS: BUDESONIDE (INHALATION) 0.5 MG/2 ML NEB NEB SCH (06:21)
[2018-08-12] MEDS: PANTOPRAZOLE 40 MG TAB PO SCH (06:28)
[2018-08-12] MEDS: methylPREDNISolone SOD SUCC 40 MG/ML VL IV SCH ×2 (06:28→13:11)
[2018-08-12 07:11] LABS: Basophils # (auto) 0 uL; Basophils % (auto) 0.1 % (0.0-2.0); Eosinophils # (auto) 0 uL; Monocytes # (auto) 0.3 uL; Neutrophils # (auto) 3.8 uL; Nucleated Red Blood Cells % 0.1 %; Red Cell Distribution Width 15.7 % (11.8-14.3); White Blood Cell 4.7 10^3/uL (4.4-10.8)
[2018-08-12 07:15] LABS: Hematocrit 32.7 % (36.0-46.0); Hemoglobin 10.9 g/dL (12.2-16.2); Lymphocytes # (auto) 0.6 uL; Lymphocytes % (auto) 11.8 % (10.0-50.0); Mean Corpuscular Hgb Conc. 33.3 g/dL (32.0-36.0); Mean Corpuscular Volume 111.1 fL (80.0-100.0); Monocytes % (auto) 6.9 % (0.0-12.0); Neutrophils % (auto) 81.2 % (37.0-80.0); Platelet Count (auto) 237 10^3/uL (140-450); Red Blood Cells 2.94 10^6/uL (4.0-5.20)
[2018-08-12 07:23] LABS: BUN/Creatinine Ratio 5.7; Calcium 7.4 mg/dL (8.5-10.1)
[2018-08-12 07:26] LABS: Potassium 6.7 mmol/L (3.5-5.1)
[2018-08-12] MEDS: SEVELAMER 800 MG TAB PO SCH ×2 (07:36→12:10)
[2018-08-12] MEDS ORDERED: SODIUM CHL 0.9% 1000 ML BAG XX ONE (07:45)
[2018-08-12] MEDS ORDERED: diphenhdrAMINE HCL 50 MG/1 ML VL IV PRN (08:30)
[2018-08-12] MEDS ORDERED: amLODIPine BESYLATE 5 MG TAB PO SCH (10:00)
[2018-08-12] MEDS: METOPROLOL TARTRATE 50 MG TAB PO SCH (10:00)
[2018-08-12] MEDS ORDERED: LIDOCAINE 5% TOPICAL PATCH TOP SCH (10:00)
[2018-08-12] MEDS ORDERED: DOX100T PO (10:06)
[2018-08-12] MEDS ORDERED: LACTULOSE 20Gm/30ML SOLN PO ONE (10:15)
[2018-08-12] MEDS: PHENYTOIN SODIUM 100 MG CAP PO SCH (12:10)
[2018-08-12] MEDS: GABAPENTIN 100 MG CAP PO SCH (12:11)
[2018-08-12] MEDS: DOXYCYCLINE 100 MG TAB/CAP PO SCH (12:11)
[2018-08-12] MEDS: DOCUSATE SOD 100 MG CAP PO SCH (12:11)
== END 2018-08-12 14:35 | disposition home health service (06) | DRG 133 ==
LOC: EDBD 19:52 → ER 19:53 → OVERFLOW 19:54 → EAST 08-09 07:22
PROVIDERS: ADMIT Nurse Practitioner; ATTEND Internal Medicine
PROC: 5A09357 Assistance with Respiratory Ventilation, Less than 24 Consecutive Hours, Continuous Positive Airway Pressure (ICD-10-PCS; 2018-08-08)
PROC: 5A1D70Z Performance of Urinary Filtration, Intermittent, Less than 6 Hours Per Day (ICD-10-PCS; principal; 2018-08-09)
PROC: 5A1D70Z Performance of Urinary Filtration, Intermittent, Less than 6 Hours Per Day (ICD-10-PCS; 2018-08-12)
DX: J96.20 Acute and chronic respiratory failure, unspecified whether with hypoxia or hypercapnia (principal); I13.2 Hypertensive heart and chronic kidney disease with heart failure and with stage 5 chronic kidney disease, or end stage renal disease; N18.6 End stage renal disease; E87.5 Hyperkalemia; Z99.81 Dependence on supplemental oxygen; J44.1 Chronic obstructive pulmonary disease with (acute) exacerbation; I50.43 Acute on chronic combined systolic (congestive) and diastolic (congestive) heart failure; K21.9 Gastro-esophageal reflux disease without esophagitis; D63.1 Anemia in chronic kidney disease; G89.29 Other chronic pain; M54.5 Low back pain; E78.5 Hyperlipidemia, unspecified; F12.90 Cannabis use, unspecified, uncomplicated; G40.909 Epilepsy, unspecified, not intractable, without status epilepticus; I08.0 Rheumatic disorders of both mitral and aortic valves; K59.00 Constipation, unspecified; M19.90 Unspecified osteoarthritis, unspecified site; Z82.49 Family history of ischemic heart disease and other diseases of the circulatory system; Z83.3 Family history of diabetes mellitus; Z87.11 Personal history of peptic ulcer disease; Z99.2 Dependence on renal dialysis; Z79.899 Other long term (current) drug therapy; Z87.442 Personal history of urinary calculi; Z88.8 Allergy status to other drugs, medicaments and biological substances
CPT/HCPCS: 36415; 36600; 71045; 71046; 80048; 80053; 82805; 83880; 84484; 85025; 87081; 90935; 93005; 94640; 94660; 96374; 96375; J0885; J2405

== ENCOUNTER 2018-08-26 13:47 | Emergency (ER) | payer MEDICARE, MEDICAID ==
[~2018-08-26] VITALS: Ht 149.9 cm; Wt 43.5 kg
[~2018-08-26 13:47] MED LIST changes: +DOX100T PO
[2018-08-26 14:10] VITALS: BP 174/83
== END 2018-08-26 14:24 | disposition home or self-care (01) ==
LOC: ER 13:48
DX: T82.838A Hemorrhage due to vascular prosthetic devices, implants and grafts, initial encounter (principal); I12.0 Hypertensive chronic kidney disease with stage 5 chronic kidney disease or end stage renal disease; N18.6 End stage renal disease; J44.9 Chronic obstructive pulmonary disease, unspecified; K21.9 Gastro-esophageal reflux disease without esophagitis; Z79.899 Other long term (current) drug therapy; Z88.8 Allergy status to other drugs, medicaments and biological substances; Z99.2 Dependence on renal dialysis; Y92.89 Other specified places as the place of occurrence of the external cause

== ENCOUNTER 2018-08-28 22:59 | Emergency (ER) | payer MEDICARE, MEDICAID ==
[~2018-08-28] VITALS: Ht 149.9 cm; Wt 43.5 kg
[2018-08-28 23:16] VITALS: BP 197/88
[2018-08-28 23:25] LABS: Basophils # (auto) 0 uL; Basophils % (auto) 1.1 % (0.0-2.0); Eosinophils # (auto) 0.1 uL; Hematocrit 33.8 % (36.0-46.0); Hemoglobin 11.1 g/dL (12.2-16.2); Lymphocytes # (auto) 0.7 uL; Lymphocytes % (auto) 21.8 % (10.0-50.0); Mean Corpuscular Hemoglobin 36.5 pg (28.0-32.0); Mean Corpuscular Hgb Conc. 32.7 g/dL (32.0-36.0); Mean Corpuscular Volume 111.6 fL (80.0-100.0); Monocytes # (auto) 0.3 uL; Monocytes % (auto) 7.9 % (0.0-12.0); Neutrophils # (auto) 2.2 uL; Neutrophils % (auto) 66.2 % (37.0-80.0); Nucleated Red Blood Cells % 0.1 %; Platelet Count (auto) 203 10^3/uL (140-450); Red Blood Cells 3.03 10^6/uL (4.0-5.20); Red Cell Distribution Width 17.5 % (11.8-14.3); White Blood Cell 3.4 10^3/uL (4.4-10.8)
[2018-08-28 23:42] LABS: Albumin 3.4 g/dL (3.4-5.0); BUN/Creatinine Ratio 4.8; Calcium 7.3 mg/dL (8.5-10.1); Potassium 3.9 mmol/L (3.5-5.1)
[2018-08-28 23:45] LABS: Bilirubin, Total 0.3 mg/dL (0.2-1.0); Total Protein 7.4 g/dL (6.4-8.2)
[2018-08-28 23:50] LABS: INR 1.07 (0.9-1.15); Partial Thromboplastin Time 28.1 sec (23.78-33.04); Prothrombin Time 11.4 sec (9.27-12.13)
[2018-08-28] MEDS: cefTRIAXone 1GM/10ml IVPUSH 10 ML IV ONE ×2 (23:53→23:55)
== END 2018-08-29 00:17 | disposition home or self-care (01) ==
LOC: ER 23:04
DX: S51.832A Puncture wound without foreign body of left forearm, initial encounter (principal); T82.591A Other mechanical complication of surgically created arteriovenous shunt, initial encounter; I12.0 Hypertensive chronic kidney disease with stage 5 chronic kidney disease or end stage renal disease; N18.6 End stage renal disease; M19.90 Unspecified osteoarthritis, unspecified site; J44.9 Chronic obstructive pulmonary disease, unspecified; K21.9 Gastro-esophageal reflux disease without esophagitis; E78.5 Hyperlipidemia, unspecified; Z99.2 Dependence on renal dialysis; Y82.8 Other medical devices associated with adverse incidents; Y83.8 Other surgical procedures as the cause of abnormal reaction of the patient, or of later complication, without mention of misadventure at the time of the procedure; Y92.89 Other specified places as the place of occurrence of the external cause
CPT/HCPCS: 36415; 80053; 85025; 85610; 85730; 86850; 86900; 86901; 96374; 99284; J0696

== ENCOUNTER 2018-09-16 19:34 | Inpatient (IN) | payer MEDICARE, MEDICAID ==
[~2018-09-16] VITALS: Ht 157.5 cm; Wt 48.3 kg
[2018-09-16 19:31] VITALS: BP 210/115
[2018-09-16] MEDS: PROPOFOL 100 ML IV ONE ×2 (19:50→19:55)
[2018-09-16] MEDS: PROPOFOL 100 ML IV SCH (19:55)
[2018-09-16] MEDS ORDERED: ETOMIDATE (2MG/ML) 20ML VIAL IV ONE (20:00)
[2018-09-16] MEDS ORDERED: SUCCINYLCHOLINE CHLORIDE 20 MG/ML 10ML VIAL IV ONE (20:00)
[2018-09-16 20:23] LABS: Lymphocytes # (auto) 1.5 uL; Neutrophils # (auto) 6.2 uL
[2018-09-16 20:25] LABS: Basophils # (auto) 0.1 uL; Basophils % (auto) 0.8 % (0.0-2.0); Eosinophils # (auto) 0.2 uL; Eosinophils % (auto) 1.9 % (0.0-7.0); Hemoglobin 12.2 g/dL (12.2-16.2); Lymphocytes % (auto) 18.4 % (10.0-50.0); Mean Corpuscular Hemoglobin 36.5 pg (28.0-32.0); Mean Corpuscular Hgb Conc. 31.3 g/dL (32.0-36.0); Mean Corpuscular Volume 116.4 fL (80.0-100.0); Monocytes # (auto) 0.4 uL; Monocytes % (auto) 4.7 % (0.0-12.0); Neutrophils % (auto) 74.2 % (37.0-80.0); Nucleated Red Blood Cells % 0.1 %; Platelet Count (auto) 318 10^3/uL (140-450); Red Blood Cells 3.35 10^6/uL (4.0-5.20); Red Cell Distribution Width 17.5 % (11.8-14.3); White Blood Cell 8.3 10^3/uL (4.4-10.8)
[2018-09-16 20:32] LABS: Lactic Acid w/Reflex 2.4 mmol/L (0.4-2.0)
[2018-09-16 20:38] LABS: Albumin 3.4 g/dL (3.4-5.0); Anion Gap 16 (5-15); Aspartate Aminotransferase 36 U/L (15-37); BUN/Creatinine Ratio 8.1; Calcium 6.7 mg/dL (8.5-10.1); Carbon Dioxide 23 mmol/L (21-32); Chloride 102 mmol/L (98-107); GFR African American 5 mL/min; GFR Non-African American 4 mL/min; Glucose 195 mg/dL (74-106); Magnesium 3.1 mg/dL (1.6-2.6); Sodium 141 mmol/L (136-145)
[2018-09-16] MEDS: MIDAZOLAM DRIP 50 mg/50mL 50 ML IV SCH (20:39)
[2018-09-16 20:43] LABS: Alanine Aminotransferase 31 U/L (13-56); Alkaline Phosphatase 292 U/L (45-117); Bilirubin, Total 0.4 mg/dL (0.2-1.0); Total Protein 7.7 g/dL (6.4-8.2)
[2018-09-16 20:47] LABS: Blood Urea Nitrogen 81 mg/dL (7-18); Potassium 5.9 mmol/L (3.5-5.1)
[2018-09-16] MEDS ORDERED: MIDAZOLAM DRIP 50 mg/50mL 50 ML IV ONE (20:48)
[2018-09-16] MEDS ORDERED: SODIUM BICARBONATE 8.4 % INJ 50ML VIAL IV ONE ×2 (21:00)
[2018-09-16] MEDS ORDERED: LEVOFLOXACIN 500MG 100 ML IV ONE (21:00)
[2018-09-16] MEDS ORDERED: CALCIUM GLUC 4.65meq/50ml D5AE 50 ML IV ONE (21:00)
[2018-09-16] MEDS ORDERED: ALBUTEROL SULF 2.5 MG/0.5ML(0.5%) NEB SOLN NEB ONE (21:00)
[2018-09-16] MEDS ORDERED: IPRATROPIUM BROM 0.5 MG/2.5ML INH SOL NEB ONE (21:00)
[2018-09-16 21:50] VITALS: BP 168/77
[2018-09-16] MEDS ORDERED: ACETAMINOPHEN 650 mg PER 20 mL UD NG PRN (22:00)
[2018-09-16] MEDS ORDERED: LORazepam 2MG/ML-1ML VIAL IV PRN (22:00)
[2018-09-16] MEDS ORDERED: DEXTROSE (50%) 50ML SYRG IV PRN (22:00)
[2018-09-16] MEDS: ALBUTEROL SULF 2.5 MG/0.5ML(0.5%) NEB SOLN NEB SCH (23:38)
[2018-09-16] MEDS: IPRATROPIUM BROM 0.5 MG/2.5ML INH SOL NEB SCH (23:38)
[2018-09-16 23:45] VITALS: BP 199/88
[2018-09-17] VITALS (105 sets, daily range): BP systolic 70–211; BP diastolic 45–95
[2018-09-17] MEDS: METOPROLOL TARTRATE 25 MG TAB PO SCH ×3 (00:25→22:03)
[2018-09-17] MEDS: PROPOFOL 100 ML IV SCH ×3 (03:07→17:57)
[2018-09-17 05:38] LABS: Basophils # (auto) 0 uL; Eosinophils # (auto) 0.1 uL; Eosinophils % (auto) 1.6 % (0.0-7.0); Monocytes # (auto) 0.5 uL; Nucleated Red Blood Cells % 0.2 %; White Blood Cell 4.4 10^3/uL (4.4-10.8)
[2018-09-17 05:40] LABS: Basophils % (auto) 0.5 % (0.0-2.0); Hemoglobin 10.4 g/dL (12.2-16.2); Lymphocytes # (auto) 0.7 uL; Lymphocytes % (auto) 15.2 % (10.0-50.0); Mean Corpuscular Hemoglobin 37.6 pg (28.0-32.0); Mean Corpuscular Hgb Conc. 33.4 g/dL (32.0-36.0); Mean Corpuscular Volume 112.7 fL (80.0-100.0); Monocytes % (auto) 11.8 % (0.0-12.0); Neutrophils # (auto) 3.1 uL; Neutrophils % (auto) 70.9 % (37.0-80.0); Platelet Count (auto) 215 10^3/uL (140-450); Red Blood Cells 2.75 10^6/uL (4.0-5.20); Red Cell Distribution Width 16.8 % (11.8-14.3)
[2018-09-17 06:00] LABS: Anion Gap 16 (5-15); BUN/Creatinine Ratio 8.4; Calcium 6.8 mg/dL (8.5-10.1); Carbon Dioxide 25 mmol/L (21-32); Chloride 105 mmol/L (98-107); GFR African American 5 mL/min; GFR Non-African American 4 mL/min; Glucose 84 mg/dL (74-106); Potassium 4.7 mmol/L (3.5-5.1); Sodium 146 mmol/L (136-145)
[2018-09-17] MEDS: ACCU-CHEK COMFORT CURVE STRIP VI SCH ×5 (06:00→23:40)
[2018-09-17] MEDS: InsuLIN REG 1unit/0.01ml Soln (100units/ml) SC SCH ×5 (06:00→23:40)
[2018-09-17] MEDS: ALBUTEROL SULF 2.5 MG/0.5ML(0.5%) NEB SOLN NEB SCH ×4 (06:06→18:25)
[2018-09-17] MEDS: IPRATROPIUM BROM 0.5 MG/2.5ML INH SOL NEB SCH ×4 (06:06→18:25)
[2018-09-17 06:15] LABS: Blood Urea Nitrogen 87 mg/dL (7-18)
[2018-09-17] MEDS: MIDAZOLAM DRIP 50 mg/50mL 50 ML IV SCH (07:57)
[2018-09-17] MEDS: MORPHINE SULFATE 4 MG/ML SYR/VIAL IV PRN (07:57)
[2018-09-17] MEDS: SEVELAMER 800 MG TAB PO SCH ×2 (07:59→12:00)
[2018-09-17] MEDS ORDERED: EPOETIN ALFA 10,000 UNIT/1 ML VIAL IV ONE (09:30)
[2018-09-17] MEDS ORDERED: amLODIPine BESYLATE 5 MG TAB PO SCH (10:00)
[2018-09-17] MEDS: ASPirin 81 mg TAB PO SCH (12:26)
[2018-09-17] MEDS: DOXYCYCLINE 100MG/250ML 250 ML IV SCH ×2 (12:26→22:02)
[2018-09-17] MEDS: PANTOPRAZOLE 40 MG/10 ML VIAL IV SCH (12:26)
[2018-09-17] MEDS: methylPREDNISolone SOD SUCC 125 MG/2 ML VL IV SCH ×2 (14:59→22:02)
[2018-09-17] MEDS: Nepro With Carb Steady 1 Liter Bottle GT SCH (15:00)
[2018-09-17] MEDS: hydrALAZINE HCL 20 MG/ML VL IV SCH (17:57)
[2018-09-17] MEDS: BUDESONIDE (INHALATION) 0.5 MG/2 ML NEB NEB SCH (18:25)
[2018-09-17] MEDS: PHENYTOIN IV DILANTIN 300 MG in SODIUM CHL 0.9% 50 ML IV SCH (22:02)
[2018-09-18] VITALS (104 sets, daily range): BP systolic 77–145; BP diastolic 40–70
[2018-09-18 04:18] LABS: Platelet Count (auto) 234 10^3/uL (140-450)
[2018-09-18 04:20] LABS: Hematocrit 35.2 % (36.0-46.0); Hemoglobin 11.6 g/dL (12.2-16.2); Mean Corpuscular Hemoglobin 37.2 pg (28.0-32.0); Red Blood Cells 3.13 10^6/uL (4.0-5.20); Red Cell Distribution Width 17.3 % (11.8-14.3); White Blood Cell 4.8 10^3/uL (4.4-10.8)
[2018-09-18 04:21] LABS: Mean Corpuscular Volume 112.2 fL (80.0-100.0)
[2018-09-18 04:23] LABS: Band Neutrophils % (manual) 0; Basophils % (manual) 0 (0.0-2.0); Blast Cells 0; Eosinophils % (manual) 0 (0-7); Metamyelocytes % 0; Myelocytes % 0; Promyelocytes % 0; Reactive Lymphocytes 0
[2018-09-18 04:24] LABS: BUN/Creatinine Ratio 6.5; Calcium 7.4 mg/dL (8.5-10.1); Potassium 4.7 mmol/L (3.5-5.1)
[2018-09-18 04:37] LABS: Lymphocytes % (manual) 5 (10.0-50.0); Monocytes % (manual) 2 (0-12)
[2018-09-18] MEDS: PROPOFOL 100 ML IV SCH ×2 (05:14→12:01)
[2018-09-18] MEDS: methylPREDNISolone SOD SUCC 125 MG/2 ML VL IV SCH ×3 (05:40→22:21)
[2018-09-18] MEDS: hydrALAZINE HCL 20 MG/ML VL IV SCH ×5 (05:40→23:39)
[2018-09-18] MEDS: ACCU-CHEK COMFORT CURVE STRIP VI SCH ×3 (05:41→18:10)
[2018-09-18] MEDS: InsuLIN REG 1unit/0.01ml Soln (100units/ml) SC SCH ×3 (05:41→18:00)
[2018-09-18] MEDS: IPRATROPIUM BROM 0.5 MG/2.5ML INH SOL NEB SCH ×5 (06:50→23:31)
[2018-09-18] MEDS: ALBUTEROL SULF 2.5 MG/0.5ML(0.5%) NEB SOLN NEB SCH ×5 (06:51→23:31)
[2018-09-18] MEDS: BUDESONIDE (INHALATION) 0.5 MG/2 ML NEB NEB SCH ×2 (06:51→18:22)
[2018-09-18] MEDS: METOPROLOL TARTRATE 25 MG TAB PO SCH ×3 (10:00→22:21)
[2018-09-18] MEDS: amLODIPine BESYLATE 5 MG TAB PO SCH (10:00)
[2018-09-18] MEDS: ASPirin 81 mg TAB PO SCH (10:04)
[2018-09-18] MEDS: DOXYCYCLINE 100MG/250ML 250 ML IV SCH ×2 (10:04→22:21)
[2018-09-18] MEDS: PANTOPRAZOLE 40 MG/10 ML VIAL IV SCH (11:56)
[2018-09-18] MEDS: MIDAZOLAM DRIP 50 mg/50mL 50 ML IV SCH ×2 (16:20)
[2018-09-18] MEDS: Nepro With Carb Steady 1 Liter Bottle GT SCH (17:20)
[2018-09-18] MEDS: PHENYTOIN IV DILANTIN 300 MG in SODIUM CHL 0.9% 50 ML IV SCH (22:22)
[2018-09-19] VITALS (76 sets, daily range): BP systolic 86–156; BP diastolic 43–85
[2018-09-19 04:13] LABS: Hemoglobin 11.3 g/dL (12.2-16.2); Mean Corpuscular Hemoglobin 37.6 pg (28.0-32.0)
[2018-09-19 04:15] LABS: Hematocrit 33.8 % (36.0-46.0); Mean Corpuscular Hgb Conc. 33.5 g/dL (32.0-36.0); Platelet Count (auto) 259 10^3/uL (140-450); Red Blood Cells 3.01 10^6/uL (4.0-5.20); Red Cell Distribution Width 17.2 % (11.8-14.3)
[2018-09-19 04:22] LABS: Band Neutrophils % (manual) 0; Basophils % (manual) 0 (0.0-2.0); Blast Cells 0; Eosinophils % (manual) 0 (0-7); Metamyelocytes % 0; Myelocytes % 0; Promyelocytes % 0; Reactive Lymphocytes 0
[2018-09-19 04:34] LABS: Calcium 7.2 mg/dL (8.5-10.1); Potassium 4.8 mmol/L (3.5-5.1)
[2018-09-19 04:37] LABS: BUN/Creatinine Ratio 8.2
[2018-09-19 04:57] LABS: Lymphocytes % (manual) 3 (10.0-50.0); Monocytes % (manual) 3 (0-12)
[2018-09-19] MEDS: methylPREDNISolone SOD SUCC 125 MG/2 ML VL IV SCH ×3 (05:43→21:39)
[2018-09-19] MEDS: PROPOFOL 100 ML IV SCH (05:54)
[2018-09-19] MEDS: ACCU-CHEK COMFORT CURVE STRIP VI SCH ×4 (06:00→18:00)
[2018-09-19] MEDS: ALBUTEROL SULF 2.5 MG/0.5ML(0.5%) NEB SOLN NEB SCH ×3 (06:19→19:24)
[2018-09-19] MEDS: BUDESONIDE (INHALATION) 0.5 MG/2 ML NEB NEB SCH ×2 (06:19→19:27)
[2018-09-19] MEDS: IPRATROPIUM BROM 0.5 MG/2.5ML INH SOL NEB SCH ×3 (06:19→19:24)
[2018-09-19] MEDS: InsuLIN REG 1unit/0.01ml Soln (100units/ml) SC SCH ×3 (12:00→18:00)
[2018-09-19] MEDS: DOXYCYCLINE 100MG/250ML 250 ML IV SCH ×2 (12:37→21:40)
[2018-09-19] MEDS: hydrALAZINE HCL 20 MG/ML VL IV SCH (12:39)
[2018-09-19] MEDS: PANTOPRAZOLE 40 MG/10 ML VIAL IV SCH (12:39)
[2018-09-19] MEDS ORDERED: LORazepam 2MG/ML-1ML VIAL ONE (13:22)
[2018-09-19] MEDS ORDERED: LORazepam 2MG/ML-1ML VIAL IV ONE ×2 (13:30→14:00)
[2018-09-19] MEDS: amLODIPine BESYLATE 5 MG TAB PO SCH (14:06)
[2018-09-19] MEDS: METOPROLOL TARTRATE 25 MG TAB PO SCH ×2 (14:07→21:40)
[2018-09-19] MEDS: ASPirin 81 mg TAB PO SCH (14:08)
[2018-09-19] MEDS: PHENYTOIN IV DILANTIN 300 MG in SODIUM CHL 0.9% 50 ML IV SCH (21:39)
[2018-09-19] MEDS: MORPHINE SULFATE 4 MG/ML SYR/VIAL IV PRN (22:03)
[2018-09-20] VITALS (42 sets, daily range): BP systolic 101–143; BP diastolic 39–71
[2018-09-20] MEDS: ACCU-CHEK COMFORT CURVE STRIP VI SCH ×5 (00:18→23:55)
[2018-09-20] MEDS: InsuLIN REG 1unit/0.01ml Soln (100units/ml) SC SCH ×4 (00:18→17:44)
[2018-09-20] MEDS: ALBUTEROL SULF 2.5 MG/0.5ML(0.5%) NEB SOLN NEB SCH ×4 (00:38→19:00)
[2018-09-20] MEDS: IPRATROPIUM BROM 0.5 MG/2.5ML INH SOL NEB SCH ×4 (00:38→19:00)
[2018-09-20 03:52] LABS: Hematocrit 33.8 % (36.0-46.0); Hemoglobin 10.9 g/dL (12.2-16.2); Mean Corpuscular Hemoglobin 36.7 pg (28.0-32.0); Mean Corpuscular Hgb Conc. 32.1 g/dL (32.0-36.0); Mean Corpuscular Volume 114.3 fL (80.0-100.0); Platelet Count (auto) 265 10^3/uL (140-450); Red Blood Cells 2.96 10^6/uL (4.0-5.20); Red Cell Distribution Width 17.7 % (11.8-14.3); White Blood Cell 7.6 10^3/uL (4.4-10.8)
[2018-09-20 03:56] LABS: Band Neutrophils % (manual) 0; Basophils % (manual) 0 (0.0-2.0); Blast Cells 0; Eosinophils % (manual) 0 (0-7); Metamyelocytes % 0; Myelocytes % 0; Promyelocytes % 0; Reactive Lymphocytes 0
[2018-09-20 04:13] LABS: Calcium 6.9 mg/dL (8.5-10.1); Potassium 4.4 mmol/L (3.5-5.1)
[2018-09-20 04:16] LABS: BUN/Creatinine Ratio 7.7
[2018-09-20 04:25] LABS: Lymphocytes % (manual) 3 (10.0-50.0); Monocytes % (manual) 5 (0-12)
[2018-09-20] MEDS: methylPREDNISolone SOD SUCC 125 MG/2 ML VL IV SCH (05:14)
[2018-09-20] MEDS: MORPHINE SULFATE 4 MG/ML SYR/VIAL IV PRN (06:35)
[2018-09-20] MEDS: BUDESONIDE (INHALATION) 0.5 MG/2 ML NEB NEB SCH ×2 (06:41→19:00)
[2018-09-20] MEDS: METOPROLOL TARTRATE 25 MG TAB PO SCH ×2 (10:00→22:22)
[2018-09-20] MEDS ORDERED: ACETAMINOPHEN 500 MG TAB PO PRN (10:00)
[2018-09-20] MEDS: PANTOPRAZOLE 40 MG/10 ML VIAL IV SCH (10:21)
[2018-09-20] MEDS: DOXYCYCLINE 100MG/250ML 250 ML IV SCH ×2 (10:21→22:19)
[2018-09-20] MEDS: ASPirin 81 mg TAB PO SCH (10:22)
[2018-09-20] MEDS ORDERED: LORazepam 0.5 MG TAB PO PRN (10:45)
[2018-09-20] MEDS ORDERED: predniSONE 20 MG TAB PO ONE (10:45)
[2018-09-20] MEDS ORDERED: LACTULOSE 20Gm/30ML SOLN PO PRN (10:45)
[2018-09-20] MEDS ORDERED: hydrOXYzine HCL 10 MG TAB PO PRN (10:45)
[2018-09-20] MEDS: GABAPENTIN 300 MG CAP PO SCH (12:19)
[2018-09-20] MEDS: amLODIPine BESYLATE 5 MG TAB PO SCH (12:20)
[2018-09-20] MEDS: SEVELAMER 800 MG TAB PO SCH ×2 (12:20→18:21)
[2018-09-20] MEDS: HYDROcodone-ACET 5/325MG TAB PO PRN ×3 (15:30→23:55)
[2018-09-20] MEDS: ATORVASTATIN 20 MG TAB PO SCH (22:21)
[2018-09-20] MEDS: PHENYTOIN SODIUM 100 MG CAP PO SCH (22:22)
[2018-09-20] MEDS: PRAMIPEXOLE DIHYDROCHLORIDE MO 0.25 MG TAB PO SCH (22:23)
[2018-09-21] MEDS: ALBUTEROL SULF 2.5 MG/0.5ML(0.5%) NEB SOLN NEB SCH ×4 (00:47→18:19)
[2018-09-21] MEDS: IPRATROPIUM BROM 0.5 MG/2.5ML INH SOL NEB SCH ×4 (00:47→18:19)
[2018-09-21] MEDS: HYDROcodone-ACET 5/325MG TAB PO PRN ×4 (04:11→21:50)
[2018-09-21 05:00] VITALS: BP 114/57
[2018-09-21] MEDS: InsuLIN REG 1unit/0.01ml Soln (100units/ml) SC SCH ×4 (06:00→18:00)
[2018-09-21 06:29] LABS: Calcium 7.3 mg/dL (8.5-10.1); Potassium 4.6 mmol/L (3.5-5.1)
[2018-09-21 06:31] LABS: BUN/Creatinine Ratio 9.5
[2018-09-21] MEDS: BUDESONIDE (INHALATION) 0.5 MG/2 ML NEB NEB SCH ×2 (06:35→18:19)
[2018-09-21] MEDS: ACCU-CHEK COMFORT CURVE STRIP VI SCH ×3 (06:36→18:00)
[2018-09-21] MEDS: SEVELAMER 800 MG TAB PO SCH ×3 (08:21→18:00)
[2018-09-21 09:00] VITALS: BP 111/48
[2018-09-21] MEDS: PANTOPRAZOLE 40 MG TAB PO SCH (10:00)
[2018-09-21] MEDS ORDERED: predniSONE 20 MG TAB PO SCH (10:00)
[2018-09-21] MEDS ORDERED: diphenhdrAMINE HCL 12.5 MG/5 ML UD PO ONE (10:30)
[2018-09-21] MEDS ORDERED: LIDOCAINE HCL (LOCAL ANESTH.) 0.5 % 50ML MDV IJ ONE (10:30)
[2018-09-21] MEDS ORDERED: LIDOCAINE 1% (LOCAL ANESTH.) PF 5ml SDV ONE (10:58)
[2018-09-21] MEDS ORDERED: LIDOCAINE 1% HCL (LOCAL ANESTH.) INJ 20ML MDV ID ONE (11:00)
[2018-09-21 13:00] VITALS: BP_SYST 115; BP_SYST 117; BP_DIAS 63
[2018-09-21] MEDS: METOPROLOL TARTRATE 25 MG TAB PO SCH ×2 (14:10→21:49)
[2018-09-21] MEDS: GABAPENTIN 300 MG CAP PO SCH (14:11)
[2018-09-21] MEDS: amLODIPine BESYLATE 5 MG TAB PO SCH (14:11)
[2018-09-21] MEDS: ASPirin 81 mg TAB PO SCH (14:12)
[2018-09-21] MEDS: DOXYCYCLINE 100MG/250ML 250 ML IV SCH (14:12)
[2018-09-21 17:00] VITALS: BP 124/56
[2018-09-21] MEDS: PRAMIPEXOLE DIHYDROCHLORIDE MO 0.25 MG TAB PO SCH (21:49)
[2018-09-21] MEDS: ATORVASTATIN 20 MG TAB PO SCH (21:49)
[2018-09-21] MEDS: PHENYTOIN SODIUM 100 MG CAP PO SCH (21:49)
[2018-09-21 22:00] VITALS: BP 120/50
[2018-09-22] MEDS: ACCU-CHEK COMFORT CURVE STRIP VI SCH ×4 (00:26→18:08)
[2018-09-22] MEDS: ALBUTEROL SULF 2.5 MG/0.5ML(0.5%) NEB SOLN NEB SCH ×5 (00:33→23:57)
[2018-09-22] MEDS: IPRATROPIUM BROM 0.5 MG/2.5ML INH SOL NEB SCH ×5 (00:33→23:57)
[2018-09-22] MEDS: HYDROcodone-ACET 5/325MG TAB PO PRN ×6 (01:36→22:06)
[2018-09-22 05:00] VITALS: BP 117/57
[2018-09-22] MEDS: InsuLIN REG 1unit/0.01ml Soln (100units/ml) SC SCH ×4 (06:00→18:08)
[2018-09-22] MEDS: BUDESONIDE (INHALATION) 0.5 MG/2 ML NEB NEB SCH ×2 (06:30→19:11)
[2018-09-22 07:37] LABS: BUN/Creatinine Ratio 8.8; Calcium 7.4 mg/dL (8.5-10.1); Potassium 4.8 mmol/L (3.5-5.1)
[2018-09-22] MEDS: SEVELAMER 800 MG TAB PO SCH ×3 (08:52→18:07)
[2018-09-22 09:00] VITALS: BP 129/68
[2018-09-22] MEDS: GABAPENTIN 300 MG CAP PO SCH (10:10)
[2018-09-22] MEDS: PANTOPRAZOLE 40 MG TAB PO SCH (10:10)
[2018-09-22] MEDS: predniSONE 20 MG TAB PO SCH (10:10)
[2018-09-22] MEDS: METOPROLOL TARTRATE 25 MG TAB PO SCH ×2 (10:11→22:05)
[2018-09-22] MEDS: amLODIPine BESYLATE 5 MG TAB PO SCH (10:11)
[2018-09-22] MEDS: ASPirin 81 mg TAB PO SCH (10:12)
[2018-09-22 13:00] VITALS: BP 122/53
[2018-09-22 16:42] VITALS: BP 129/57
[2018-09-22 22:00] VITALS: BP 124/57
[2018-09-22] MEDS: PRAMIPEXOLE DIHYDROCHLORIDE MO 0.25 MG TAB PO SCH (22:05)
[2018-09-22] MEDS: PHENYTOIN SODIUM 100 MG CAP PO SCH (22:05)
[2018-09-22] MEDS: ATORVASTATIN 20 MG TAB PO SCH (22:05)
[2018-09-23] MEDS: ACCU-CHEK COMFORT CURVE STRIP VI SCH ×3 (00:15→12:00)
[2018-09-23] MEDS: HYDROcodone-ACET 5/325MG TAB PO PRN ×3 (02:05→13:26)
[2018-09-23 03:17] VITALS: BP 124/57
[2018-09-23 05:00] VITALS: BP 111/49
[2018-09-23] MEDS: InsuLIN REG 1unit/0.01ml Soln (100units/ml) SC SCH ×3 (06:00→12:00)
[2018-09-23] MEDS: IPRATROPIUM BROM 0.5 MG/2.5ML INH SOL NEB SCH ×2 (06:04→11:23)
[2018-09-23] MEDS: ALBUTEROL SULF 2.5 MG/0.5ML(0.5%) NEB SOLN NEB SCH ×2 (06:04→11:22)
[2018-09-23] MEDS: SEVELAMER 800 MG TAB PO SCH ×2 (08:31→12:00)
[2018-09-23 09:00] VITALS: BP 119/57
[2018-09-23] MEDS ORDERED: diphenhdrAMINE HCL 25 MG CAP PO ONE (09:15)
[2018-09-23] MEDS ORDERED: SODIUM CHL 0.9% 1000 ML BAG XX ONE (09:15)
[2018-09-23] MEDS ORDERED: EPOETIN ALFA 10,000 UNIT/1 ML VIAL IV ONE (09:15)
[2018-09-23] MEDS ORDERED: LIDOCAINE HCL (LOCAL ANESTH.) 0.5 % 50ML MDV IJ ONE (09:15)
[2018-09-23] MEDS: ASPirin 81 mg TAB PO SCH (09:51)
[2018-09-23] MEDS: predniSONE 20 MG TAB PO SCH (09:52)
[2018-09-23] MEDS: GABAPENTIN 300 MG CAP PO SCH (09:52)
[2018-09-23] MEDS ORDERED: LIDOCAINE 1%HCL (LOCAL ANESTH) 10 ML MDV IJ ONE (10:00)
[2018-09-23] MEDS: PANTOPRAZOLE 40 MG TAB PO SCH (10:00)
[2018-09-23] MEDS: BUDESONIDE (INHALATION) 0.5 MG/2 ML NEB NEB SCH (11:22)
[2018-09-23] MEDS ORDERED: AML5T PO (11:23)
[2018-09-23 13:00] VITALS: BP 137/61
[2018-09-23 13:17] VITALS: BP 160/71
[2018-09-23] MEDS: METOPROLOL TARTRATE 25 MG TAB PO SCH (13:25)
[2018-09-23] MEDS: amLODIPine BESYLATE 5 MG TAB PO SCH (13:26)
[2018-09-23 14:46] VITALS: BP 137/61
== END 2018-09-23 16:30 | disposition home or self-care (01) | DRG 720 ==
LOC: EDBD 19:34 → ER 19:46 → OVERFLOW 22:15 → ICU WEST 23:34 → TELE-EAST 09-20 23:10
PROVIDERS: ADMIT Nurse Practitioner Family; ATTEND Internal Medicine
PROC: 5A1945Z Respiratory Ventilation, 24-96 Consecutive Hours (ICD-10-PCS; principal; 2018-09-16)
PROC: 0BH17EZ Insertion of Endotracheal Airway into Trachea, Via Natural or Artificial Opening (ICD-10-PCS; 2018-09-16)
PROC: 5A1D70Z Performance of Urinary Filtration, Intermittent, Less than 6 Hours Per Day (ICD-10-PCS; 2018-09-17)
PROC: 5A1935Z Respiratory Ventilation, Less than 24 Consecutive Hours (ICD-10-PCS; 2018-09-19)
PROC: 5A1D70Z Performance of Urinary Filtration, Intermittent, Less than 6 Hours Per Day (ICD-10-PCS; 2018-09-19)
PROC: 0BH17EZ Insertion of Endotracheal Airway into Trachea, Via Natural or Artificial Opening (ICD-10-PCS; 2018-09-19)
PROC: 5A1D70Z Performance of Urinary Filtration, Intermittent, Less than 6 Hours Per Day (ICD-10-PCS; 2018-09-21)
PROC: 5A1D70Z Performance of Urinary Filtration, Intermittent, Less than 6 Hours Per Day (ICD-10-PCS; 2018-09-23)
DX: A41.2 Sepsis due to unspecified staphylococcus (principal); J96.22 Acute and chronic respiratory failure with hypercapnia; I13.2 Hypertensive heart and chronic kidney disease with heart failure and with stage 5 chronic kidney disease, or end stage renal disease; J44.1 Chronic obstructive pulmonary disease with (acute) exacerbation; I50.43 Acute on chronic combined systolic (congestive) and diastolic (congestive) heart failure; I13.11 Hypertensive heart and chronic kidney disease without heart failure, with stage 5 chronic kidney disease, or end stage renal disease; N18.6 End stage renal disease; D64.9 Anemia, unspecified; I16.1 Hypertensive emergency; G40.909 Epilepsy, unspecified, not intractable, without status epilepticus; E87.5 Hyperkalemia; K21.9 Gastro-esophageal reflux disease without esophagitis; K27.9 Peptic ulcer, site unspecified, unspecified as acute or chronic, without hemorrhage or perforation; I34.0 Nonrheumatic mitral (valve) insufficiency; M19.90 Unspecified osteoarthritis, unspecified site; R73.9 Hyperglycemia, unspecified; E78.5 Hyperlipidemia, unspecified; E16.2 Hypoglycemia, unspecified; Z22.321 Carrier or suspected carrier of Methicillin susceptible Staphylococcus aureus; Z82.49 Family history of ischemic heart disease and other diseases of the circulatory system; Z99.2 Dependence on renal dialysis; Z83.3 Family history of diabetes mellitus; Z87.11 Personal history of peptic ulcer disease; Z88.8 Allergy status to other drugs, medicaments and biological substances
CPT/HCPCS: 31500; 36415; 36600; 51702; 71045; 80048; 80053; 80185; 82805; 82962; 83036; 83605; 83735; 83880; 84132; 84484; 85007; 85025; 85027; 87040; 87070; 87077; 87186; 87205; 90935; 93005; 94002; 94003; 94640; 96374; 96375; 97116; 97163; 97530; 99291; A6257; C9113; G0378; J0610; J0885; J1815; J1956; J2250; J2704; J3490

== ENCOUNTER 2019-01-22 10:09 | Emergency (ER) | payer MEDICARE, MEDICAID ==
[~2019-01-22] VITALS: Ht 149.9 cm; Wt 36.3 kg
[~2019-01-22 10:09] MED LIST changes: +AML5T PO; -DOX100T PO
[2019-01-22] MEDS ORDERED: LIDOCAINE 2% (LOCAL ANESTH.) PF 5ml SDV ONE (11:30)
[2019-01-22] MEDS ORDERED: LIDOCAINE 2%HCL (LOCAL ANESTH.) INJ 10ml MDV IJ ONE (11:45)
[2019-01-22 12:17] LABS: Basophils # (auto) 0 uL; Eosinophils # (auto) 0 uL; Hemoglobin 11.6 g/dL (12.2-16.2); Lymphocytes # (auto) 0.7 uL; Lymphocytes % (auto) 19.4 % (10.0-50.0); Monocytes # (auto) 0.5 uL; Neutrophils # (auto) 2.5 uL; Red Cell Distribution Width 16.7 % (11.8-14.3); White Blood Cell 3.8 10^3/uL (4.4-10.8)
[2019-01-22 12:18] VITALS: BP 145/58
[2019-01-22 12:19] LABS: Basophils % (auto) 0.4 % (0.0-2.0); Eosinophils % (auto) 0.9 % (0.0-7.0); Hematocrit 35.4 % (36.0-46.0); Mean Corpuscular Hemoglobin 35.6 pg (28.0-32.0); Mean Corpuscular Hgb Conc. 32.8 g/dL (32.0-36.0); Mean Corpuscular Volume 108.4 fL (80.0-100.0); Neutrophils % (auto) 66.3 % (37.0-80.0); Nucleated Red Blood Cells % 0.1 %; Platelet Count (auto) 167 10^3/uL (140-450); Red Blood Cells 3.27 10^6/uL (4.0-5.20)
[2019-01-22 12:49] LABS: Bilirubin, Total 0.3 mg/dL (0.2-1.0); Total Protein 7.5 g/dL (6.4-8.2)
[2019-01-22 12:55] LABS: Potassium 2.9 mmol/L (3.5-5.1)
== END 2019-01-22 12:32 | disposition home or self-care (01) ==
LOC: ER 10:09 → EDBD 10:09 → ER 12:32
DX: T82.591A Other mechanical complication of surgically created arteriovenous shunt, initial encounter (principal); M75.52 Bursitis of left shoulder; I12.0 Hypertensive chronic kidney disease with stage 5 chronic kidney disease or end stage renal disease; N18.6 End stage renal disease; K21.9 Gastro-esophageal reflux disease without esophagitis; E78.5 Hyperlipidemia, unspecified; J44.9 Chronic obstructive pulmonary disease, unspecified; Z99.2 Dependence on renal dialysis; Z87.11 Personal history of peptic ulcer disease; Z88.6 Allergy status to analgesic agent; Z79.899 Other long term (current) drug therapy
CPT/HCPCS: 36415; 80053; 83735; 84443; 85025; 99283; J2001

== ENCOUNTER 2019-03-17 07:53 | Inpatient (IN) | payer MEDICARE, MEDICAID ==
[2019-03-17] VITALS (61 sets, daily range): BP systolic 81–231; BP diastolic 45–108
[~2019-03-17] VITALS: Ht 149.9 cm; Wt 49.1 kg
[~2019-03-17 07:53] MED LIST changes: +DOX100T PO
[2019-03-17] MEDS ORDERED: SODIUM BICARBONATE 8.4% INJ 50ML SYRINGE ONE (08:01)
[2019-03-17] MEDS ORDERED: MIDAZOLAM DRIP 50 mg/50mL 50 ML IV ONE (08:07)
[2019-03-17] MEDS: MIDAZOLAM DRIP 50 mg/50mL 50 ML IV SCH (08:07)
[2019-03-17 08:57] LABS: Basophils # (auto) 0.1 uL; Basophils % (auto) 0.6 % (0.0-2.0); Eosinophils # (auto) 0.1 uL; Eosinophils % (auto) 1.2 % (0.0-7.0); Hematocrit 38.8 % (36.0-46.0); Hemoglobin 12.2 g/dL (12.2-16.2); Lymphocytes # (auto) 1.8 uL; Lymphocytes % (auto) 19.9 % (10.0-50.0); Mean Corpuscular Hemoglobin 34.2 pg (28.0-32.0); Mean Corpuscular Hgb Conc. 31.6 g/dL (32.0-36.0); Mean Corpuscular Volume 108.3 fL (80.0-100.0); Monocytes # (auto) 0.3 uL; Monocytes % (auto) 3.4 % (0.0-12.0); Neutrophils # (auto) 6.8 uL; Neutrophils % (auto) 74.9 % (37.0-80.0); Nucleated Red Blood Cells % 0.1 %; Platelet Count (auto) 197 10^3/uL (140-450); Red Blood Cells 3.58 10^6/uL (4.0-5.20); Red Cell Distribution Width 18.2 % (11.8-14.3); White Blood Cell 9.1 10^3/uL (4.4-10.8)
[2019-03-17 09:08] LABS: Chloride 105 mmol/L (98-107); Sodium 140 mmol/L (136-145)
[2019-03-17 09:11] LABS: Albumin 3.3 g/dL (3.4-5.0); Anion Gap 14 (5-15); Blood Urea Nitrogen 63 mg/dL (7-18); Calcium 7.7 mg/dL (8.5-10.1); Carbon Dioxide 21 mmol/L (21-32); Glucose 211 mg/dL (74-106); Magnesium 2.8 mg/dL (1.6-2.6)
[2019-03-17 09:16] LABS: Alanine Aminotransferase 36 U/L (13-56); Alkaline Phosphatase 227 U/L (45-117); Aspartate Aminotransferase 44 U/L (15-37); BUN/Creatinine Ratio 6.3; Bilirubin, Total 0.3 mg/dL (0.2-1.0); GFR African American 5 mL/min; GFR Non-African American 4 mL/min; Total Protein 7.4 g/dL (6.4-8.2)
[2019-03-17 09:20] LABS: Lactic Acid w/Reflex 5.1 mmol/L (0.4-2.0)
[2019-03-17 09:22] LABS: INR 1.05 (0.9-1.15); Partial Thromboplastin Time 27.1 sec (23.78-33.04); Prothrombin Time 11.2 sec (9.27-12.13)
[2019-03-17 09:29] LABS: Potassium 5.9 mmol/L (3.5-5.1)
[2019-03-17] MEDS ORDERED: PIPERACILLIN-TAZOB 3.375GM 100 ML IV ONE (09:30)
[2019-03-17] MEDS ORDERED: VANCOMYCIN 1GM/250ML 250 ML IV ONE (09:30)
[2019-03-17] MEDS ORDERED: ACETAMINOPHEN 500 MG TAB PO PRN (09:45)
[2019-03-17] MEDS ORDERED: ONDANSETRON HCL 4 MG/2 ML VIAL IV PRN (09:45)
[2019-03-17] MEDS ORDERED: ALBUTEROL SULF 2.5 MG/0.5ML(0.5%) NEB SOLN NEB ONE (09:45)
[2019-03-17] MEDS ORDERED: NITROGLYCERIN 0.4 MG SL TAB SL PRN (09:45)
[2019-03-17] MEDS ORDERED: SODIUM ZIRCONIUM CYCL 10 GM PAK PO ONE (09:45)
[2019-03-17] MEDS ORDERED: CALCIUM GLUC 4.65meq/50ml D5AE 50 ML IV ONE (09:45)
[2019-03-17] MEDS ORDERED: ENOXAPARIN SOD 40 MG/0.4 ML SYRINGE SC SCH (10:00)
[2019-03-17] MEDS ORDERED: SODIUM BICARBONATE 8.4 % INJ 50ML VIAL IV ONE (10:00)
[2019-03-17] MEDS ORDERED: PANTOPRAZOLE 40 MG/10 ML VIAL INJ IV SCH (10:00)
--- NOTE | 2019-03-17 10:20 | NUR ---
Admit to ICU from ER on vent DEVIKA RAY admitted to ICU via gurney on fiber machine tender, intubated and being bagged by Respiratory Therapist. Patient transferred to bed, connected to mechanical ventilator by therapist, JONATHAN at bedside. Patient connected to ICU monitoring, weighed by bedscale, oriented to Franca kaba RN, unit, ventilator and sedation. NOTE:
[2019-03-17] MEDS ORDERED: SODIUM CHL 0.9% 1000 ML BAG XX ONE (10:30)
--- NOTE | 2019-03-17 10:30 | NUR ---
DR GENTILE VISITS ET EXAMINES PATIENT - ORDERS RECEIVED.
--- NOTE | 2019-03-17 11:01 | NUR ---
MN GIVEN WITH 20MG ALBUTEROL FOR HYPERKALEMIA. MN GIVEN IN LINE WITH VENTILATOR. PT ORALLY INTUBATED AND ON A V17 KIANA VENTILATOR. AC 14, VT 450, PEEP 5, FIO2 30%. VENT TO RED OUTLET, ALARMS ARE PROPERLY SET AND FUNCTIONAL, BAG AND MASK UNIT AT BEDSIDE ALONG WITH O2 SOURCE. ETT 7.5 SECURED AT 24 CM TO THE UPPER LIP VIA A DENISSE ETT KAM. BS ARE INSPIRATORY AND EXPIRATORY COARSE WHEEZES TO AUSCULTATION. BILATERAL CHEST RISE IS PRESENT. PT ON SEMI FOWLERS POSITION. WILL CONTINUE TO MONITOR PT.
[2019-03-17 11:29] LABS: % Iron Saturation 37.2 % (15-50)
--- NOTE | 2019-03-17 12:00 | NUR ---
HD TREATMENT STARTED
[2019-03-17] MEDS ORDERED: SODIUM BICARBONATE 8.4% INJ 50ML SYRINGE IV ONE (12:57)
[2019-03-17] MEDS ORDERED: EPINEPHrine HCL 1 MG/10 ML SYRG IV ONE (12:57)
[2019-03-17] MEDS ORDERED: CALCIUM CHLOR(10%) 100MG/ML 10ML SYRINGE IV ONE (12:57)
[2019-03-17] MEDS: IPRATROPIUM BROM 0.5 MG/2.5ML INH SOL NEB SCH ×2 (13:39→19:16)
[2019-03-17] MEDS: ALBUTEROL SULF 2.5 MG/0.5ML(0.5%) NEB SOLN NEB SCH ×2 (13:39→19:16)
[2019-03-17] MEDS: BUDESONIDE (INHALATION) 0.5 MG/2 ML NEB NEB SCH ×2 (13:40→19:16)
[2019-03-17] MEDS: fentaNYL Drip 2500mCg/250mlNS 250 ML IV SCH (13:52)
--- NOTE | 2019-03-17 15:00 | NUR ---
HD TREATMENT COMPLETED - ADDITIONAL 300ML GIVEN PER HD RN DUE TO SBP 80.
[2019-03-17] MEDS: FAMOTIDINE (10MG/ML) 2ML VL IV SCH (15:57)
[2019-03-17] MEDS: cefTRIAXone 1GM/50ML D5W 50 ML IV SCH (15:57)
[2019-03-17] MEDS: ENOXAPARIN SOD 30 MG/0.3 ML SYRINGE SC SCH (15:58)
--- NOTE | 2019-03-17 16:00 | NUR ---
PATIENT'S SISTER VISITS - ADMISSION PAPERWORK COMPLETED.
[2019-03-17 16:59] LABS: Hepatitis C Antibody Negative (Negative)
[2019-03-17 17:02] LABS: Hepatitis B Core IgM Negative; Hepatitis B Surface Antigen Negative (Negative)
[2019-03-17 17:04] LABS: Hepatitis A Ab IgM Negative
--- NOTE | 2019-03-17 17:15 | NUR ---
PATIENT HAD LOOSE MUSHY FOUL SMELLING MUCUSY STOOL - PERICARE GIVEN.
--- NOTE | 2019-03-17 17:25 | NUR ---
WOUND CARE NOTE: Wound care in to see patient due to intubation status and Low Js score putting patient to high risk for skin breakdown. Patient is 68 years old female with admitting diagnosis of Cardiopulmonary Arrest. Patient has history of htn, COPD, CKF. Patient is resting in ICU bed in Rm. 103. Patient is intubated, sedated and mechanically ventilated. Patient appears to be in no pain using Goss [place] Faces Pain Scale. Skin assessment done with the assistance of patient's nurse RN Franca. No open wound noted other than intact ecchymosis to patient's L lateral lower leg with the largest measuring 4x3cm. Patient's LLE noted edematous in comparison to RLE. Photograph of mentioned skin issue are taken for reference. No pressure injury issue noted. Patient tolerated examination well. Repositioned for comfort facing her Rt side, redistributed pressure points with pillows and elevate edematous extremities on pillows. RECOMMENDATION: BID/PRN cleaning and application of Barrier cream to sacral, buttocks, perineum as preventative per MD order, dietary consult for low Js score , frequent turning and repositioning schedule as condition permits, redistribute pressure points with pillows, elevate edematous extremity on pillow, continue monitoring by wound care while patient is mechanically ventilated. Addendum: 03/17/19 at 1816 by Teressa Nice RN Amended: Links added.
[2019-03-17] MEDS: AZITHROMYCIN 500MG/ 250ML 250 ML IV SCH (18:00)
--- NOTE | 2019-03-17 18:15 | NUR ---
SBP 180-190 - CALL PLACED TO DR CEJA.
--- NOTE | 2019-03-17 18:25 | NUR ---
DR CEJA RETURNS CALL - ORDER RECEIVED.
[2019-03-17] MEDS ORDERED: FUROSEMIDE 100 MG/10ML VIAL IV ONE (18:30)
[2019-03-17 18:36] LABS: Calcium 8.3 mg/dL (8.5-10.1); Potassium 3.5 mmol/L (3.5-5.1)
[2019-03-17 18:39] LABS: BUN/Creatinine Ratio 5.4
--- NOTE | 2019-03-17 18:40 | NUR ---
LASIX GIVEN IVP - WILL CONTINUE TO MONITOR PATIENT.
--- NOTE | 2019-03-17 19:15 | NUR ---
SBP REMAINS 190'S - ONCOMING RN INFORMED - CARE ENDORSED TO RASHIDA VENEGAS.
--- NOTE | 2019-03-17 20:15 | NUR ---
FAMILY AT BEDSIDE.
--- NOTE | 2019-03-17 20:30 | NUR ---
PAGED THE HOSPITALIST FOR PRN BP MEDS, BP 201/90, HR 102. AWAITING CALL BACK.
--- NOTE | 2019-03-17 20:38 | NUR ---
LEFT LEG X-RAY TAKEN AT BEDSIDE.
--- NOTE | 2019-03-17 21:15 | NUR ---
RE-PAGED THE HOSPITALIST FOR SBP >200. AWAITING CALL BACK.
--- NOTE | 2019-03-17 21:20 | NUR ---
BLEEDING FROM THE CENTRAL LINE NOTED, BED BATH DONE AND COMPLETE LINENS AND GOWN CHANGED. REPOSITIONED FOR COMFORT.
--- NOTE | 2019-03-17 21:26 | NUR ---
returned call MARIA A HARRIS returned call, updated on patient status and reason for call, orders received to give labetalol 10mg IV Q4h prn SBP>160. Will carry out an order after order had been read back and verified.
[2019-03-17] MEDS ORDERED: LABETALOL HCL 5 MG/ML ML 20ML VIAL IV ONE (21:45)
[2019-03-17] MEDS: LABETALOL HCL 5 MG/ML ML 20ML VIAL IV PRN (21:51)
--- NOTE | 2019-03-17 23:25 | NUR ---
PAGED THE HOSPITALIST FOR PERSISTENTLY HIGH BP, 228/96, HR 105. 2326 CALLED BACK WITH ORDER TO GIVE HYDRALAZINE 15MG IV ONCE THEN START ON CARDENE DRIP IF IT WILL NOT WORK. WILL CARRY OUT ORDERS. WILL CONTINUE TO MONITOR VS.
[2019-03-17] MEDS ORDERED: hydrALAZINE HCL 20 MG/ML VL ONE (23:33)
[2019-03-17] MEDS ORDERED: hydrALAZINE HCL 20 MG/ML VL IV ONE (23:45)
--- NOTE | 2019-03-17 23:58 | NUR ---
BP 168/75, HR 95.
[2019-03-18] VITALS (108 sets, daily range): BP systolic 112–182; BP diastolic 45–98
[2019-03-18] MEDS: NICARDIPINE 25MG/250ML BAG KIT 250 ML IV SCH ×5 (01:00→21:19)
--- NOTE | 2019-03-18 01:00 | NUR ---
CARDENE DRIP STARTED @ 5 MG/HR, BP 182/76, HR 95.
[2019-03-18] MEDS: MIDAZOLAM DRIP 50 mg/50mL 50 ML IV SCH ×2 (01:01→11:24)
--- NOTE | 2019-03-18 02:10 | NUR ---
INTRAOSSEOUS ACCESS REMOVED. PRESSURE APPLIED TO SITE.
--- NOTE | 2019-03-18 03:00 | NUR ---
BLOOD DRAW DONE
--- NOTE | 2019-03-18 04:00 | NUR ---
BLEEDING FROM THE CENTRAL LINE NOTED, DRESSING CHANGED AND BIOPATCH APPLIED TO BASE. COMPLETE LINENS AND GOWN CHANGED. REPOSITIONED FOR COMFORT.
[2019-03-18 04:36] LABS: Basophils # (auto) 0 uL; Eosinophils # (auto) 0 uL; Eosinophils % (auto) 0.2 % (0.0-7.0); Lymphocytes # (auto) 0.5 uL; Monocytes # (auto) 0.4 uL; Neutrophils # (auto) 6.8 uL
[2019-03-18 04:38] LABS: Basophils % (auto) 0.5 % (0.0-2.0); Hematocrit 35.7 % (36.0-46.0); Hemoglobin 11.8 g/dL (12.2-16.2); Lymphocytes % (auto) 6.7 % (10.0-50.0); Mean Corpuscular Hemoglobin 34.1 pg (28.0-32.0); Mean Corpuscular Volume 103.5 fL (80.0-100.0); Monocytes % (auto) 5.3 % (0.0-12.0); Neutrophils % (auto) 87.3 % (37.0-80.0); Platelet Count (auto) 149 10^3/uL (140-450); Red Blood Cells 3.45 10^6/uL (4.0-5.20); Red Cell Distribution Width 17.9 % (11.8-14.3); White Blood Cell 7.8 10^3/uL (4.4-10.8)
[2019-03-18 05:02] LABS: Potassium 3.3 mmol/L (3.5-5.1)
[2019-03-18 05:07] LABS: BUN/Creatinine Ratio 5.1; Calcium 7.9 mg/dL (8.5-10.1)
[2019-03-18] MEDS: IPRATROPIUM BROM 0.5 MG/2.5ML INH SOL NEB SCH ×3 (05:56→18:22)
[2019-03-18] MEDS: ALBUTEROL SULF 2.5 MG/0.5ML(0.5%) NEB SOLN NEB SCH ×3 (05:57→18:22)
[2019-03-18] MEDS: BUDESONIDE (INHALATION) 0.5 MG/2 ML NEB NEB SCH ×2 (05:57→18:22)
--- NOTE | 2019-03-18 06:28 | NUR ---
MARIA A HARRIS CALLED BACK WITH NEW ORDER TO GIVE KCL 25MG/ NGT ONCE. WILL CARRY OUT AN ORDER.
--- NOTE | 2019-03-18 06:36 | NUR ---
CALLED THE PHARMACY AND SPOKE WITH SAI CARR: HOSPITALIST ORDER TO GIVE KCL 25MG/NGT BUT COULD NOT FIND IN THE MED LIST. HE SAID HE WILL JUST PUT IN THE ORDER. WILL INFORM THE DAY SHIFT RN.
[2019-03-18] MEDS ORDERED: POTASSIUM EFFERVESENT TAB 25 MEQ GT ONE (06:45)
[2019-03-18] MEDS: cefTRIAXone 1GM/50ML D5W 50 ML IV SCH (08:27)
--- NOTE | 2019-03-18 09:30 | NUR ---
DR. GENTILE HERE TO SEE PATIENT.SEE MD NOTES AND EMR FOR ANY NEW ORDERS.
[2019-03-18] MEDS: fentaNYL Drip 2500mCg/250mlNS 250 ML IV SCH (09:42)
[2019-03-18] MEDS: FAMOTIDINE (10MG/ML) 2ML VL IV SCH (09:49)
[2019-03-18] MEDS: AZITHROMYCIN 500MG/ 250ML 250 ML IV SCH (09:49)
[2019-03-18] MEDS: ENOXAPARIN SOD 30 MG/0.3 ML SYRINGE SC SCH (10:00)
--- NOTE | 2019-03-18 11:08 | NUR ---
DR. HORTON HERE TO SEE PATIENT. SEE MD NOTES AND EMR FOR ANY NEW ORDERS.
[2019-03-18] MEDS: methylPREDNISolone SOD SUCC 40 MG/ML VL IV SCH ×3 (11:37→23:35)
--- NOTE | 2019-03-18 19:00 | NUR ---
OPENING SHIFT NOTE ASSUMED CARE, STILL ON VENT, SEDATION WITH VERSED, NICARDIPINE DRIP, SEE SPREADSHEET FOR TITRATION, CENTRAL LINE TO THE RIGHT SUBCLAVIAN VEIN PATENT AND INTACT, GARCIA CATHETER STILL WITHOUT URINE OUTPUT, OGT IN PLACE. BED IN LOWEST POSITION WITH SIDE RAILS UP, BED ALARM ON. WILL CONTINUE CARE.
--- NOTE | 2019-03-18 21:14 | NUR ---
CARDENE DRIP DECREASED TO 3MG/HR, BP 126/51, HR 100. WILL CONTINUE TO MONITOR VS.
[2019-03-19] VITALS (99 sets, daily range): BP systolic 29–175; BP diastolic 52–82
[2019-03-19] MEDS: MIDAZOLAM DRIP 50 mg/50mL 50 ML IV SCH ×2 (02:03→12:50)
--- NOTE | 2019-03-19 03:26 | NUR ---
BLOOD DRAW DONE
[2019-03-19 04:25] LABS: Basophils # (auto) 0 uL; Basophils % (auto) 0.1 % (0.0-2.0); Eosinophils # (auto) 0 uL; Hematocrit 33.5 % (36.0-46.0); Hemoglobin 11.1 g/dL (12.2-16.2); Lymphocytes # (auto) 0.2 uL; Lymphocytes % (auto) 2.5 % (10.0-50.0); Mean Corpuscular Hemoglobin 34.5 pg (28.0-32.0); Mean Corpuscular Hgb Conc. 33.1 g/dL (32.0-36.0); Mean Corpuscular Volume 104.1 fL (80.0-100.0); Monocytes # (auto) 0.1 uL; Neutrophils # (auto) 6.9 uL; Neutrophils % (auto) 95.4 % (37.0-80.0); Nucleated Red Blood Cells % 0.1 %; Platelet Count (auto) 170 10^3/uL (140-450); Red Blood Cells 3.21 10^6/uL (4.0-5.20); White Blood Cell 7.2 10^3/uL (4.4-10.8)
--- NOTE | 2019-03-19 04:26 | NUR ---
AM CARE DONE, SECRETIONS SUCTIONED PRN.
[2019-03-19 04:36] LABS: Calcium 7.4 mg/dL (8.5-10.1); Potassium 3.9 mmol/L (3.5-5.1)
--- NOTE | 2019-03-19 05:35 | NUR ---
CHEST PORTABLE TAKEN
[2019-03-19] MEDS: methylPREDNISolone SOD SUCC 40 MG/ML VL IV SCH ×3 (05:41→18:55)
--- NOTE | 2019-03-19 06:20 | NUR ---
NICARDIPINE DRIP @ 1MG/HR, SBP 120'S-130'S, HR 90.
[2019-03-19] MEDS: ALBUTEROL SULF 2.5 MG/0.5ML(0.5%) NEB SOLN NEB SCH ×3 (06:40→18:10)
[2019-03-19] MEDS: IPRATROPIUM BROM 0.5 MG/2.5ML INH SOL NEB SCH ×3 (06:41→18:10)
[2019-03-19] MEDS: BUDESONIDE (INHALATION) 0.5 MG/2 ML NEB NEB SCH ×2 (06:41→18:10)
--- NOTE | 2019-03-19 08:10 | NUR ---
CARDENE GTT STOPPED AT THIS TIME: PENDING HD FOR THIS AM WILL INFORM DR. PANIAGUA. CONTINUE CARE.
--- NOTE | 2019-03-19 08:30 | NUR ---
DR. LEARY AT BEDSIDE:ORDERS GIVEN MD AT BEDSIDE, MD TALKING WITH HD RN AT BEDSIDE. ORDERS TO BE GIVEN AND WILL BE CARRIED OUT. CONTINUE CARE. PATIENT CURRENTLY ON HD.WILL CONTINUE TO MONITOR.
[2019-03-19] MEDS: fentaNYL Drip 2500mCg/250mlNS 250 ML IV SCH (09:42)
[2019-03-19] MEDS: NICARDIPINE 25MG/250ML BAG KIT 250 ML IV SCH ×3 (09:45→11:00)
[2019-03-19] MEDS: ENOXAPARIN SOD 30 MG/0.3 ML SYRINGE SC SCH (10:00)
--- NOTE | 2019-03-19 10:50 | NUR ---
FAMILY AT BEDSIDE: UPDATE PATIENT'S DAUGHTER UPDATED ON PT'S CURRENT STATUS AND POC FOR TODAY. DAUGHTER VERBALIZED UNDERSTANDING AND ALL QUESTIONS ANSWERED. WILL CONTINUE TO MONITOR PATIENT CLOSELY. CONTINUE CARE.
--- NOTE | 2019-03-19 11:10 | NUR ---
DR. RAMIREZ AT BEDSIDE: ORDERS MD UPDATED ON PT'S STATUS, LABS AND HEMODYNAMICS AT THIS TIME. PATIENT ALMOST COMPLETE WITH HD. MD TALKING WITH PT'S DAUGHTER AT BEDSIDE. WILL CONTINUE TO MONITOR.
--- NOTE | 2019-03-19 11:25 | NUR ---
HD COMPLETED AT THIS TIME -2 LITERS FROM PATIENT PER HD RN. CURRENT VS SUCH: SBP 138/77, HR 113, RR 21. CARDENE GTT AT 5 MG /HR. WILL CONTINUE TO MONITOR.
--- NOTE | 2019-03-19 11:42 | NUR ---
NUTRITION ASSESSMENT NOTES Please refer to link notes of nutrition screen form filed under the intervention section of the plan of care for further details. Est. Needs: 1250 kcal to 1450 kcal (30-35 kcal/kgBW), 50 gms to 62 gms pro (1.2-1.5 gms/kgBW d/t ESRD on HD). Will continue to monitor pertinent labs and reassess nutrient need prn Thank you. Addendum: 03/19/19 at [address] Amended: Links added.
[2019-03-19] MEDS: FAMOTIDINE (10MG/ML) 2ML VL IV SCH (12:50)
--- NOTE | 2019-03-19 13:00 | NUR ---
VERSED GTT STOPPED: PENDING CPAP TRIAL PER DR. RAMIREZ. WAITING FOR PATIENT TO WAKE UP AND FOLLOW COMMANDS. R.T. INFORMED. CONTINUE CARE.
[2019-03-19] MEDS ORDERED: NICARDIPINE 25MG/250ML BAG KIT 250 ML IV SCH (13:30)
--- NOTE | 2019-03-19 13:42 | NUR ---
DR. PANIAGUA CALLED: MAY DOUBLE CONCENTRATE ALL TITRATABLE GTT'S PATIENT ON CARDENE GTT, CURRENTLY ON 7.5 MG/HR. CONTINUE CARE.
[2019-03-19] MEDS: NICARDIPINE IV SCH ×2 (14:30→20:50)
[2019-03-19] MEDS: SODIUM CHL 0.9% IV SCH ×2 (14:30→20:50)
--- NOTE | 2019-03-19 14:30 | NUR ---
CARDENE GTT NOW DOUBLE STRENGTH PER MD ORDERS. CARDENE REMAINS AT 7.5 MG/HR BUT NOW 37.5 ML/HR INSTEAD OF 70 ML/HR. CONTINUE CARE. SEE IV FLOW SHEET FOR TITRATIONS MADE.
--- NOTE | 2019-03-19 16:30 | NUR ---
OXYGENATION PATIENT WAS TURNED AT 1600 TO HER LEFT SIDE. PATIENT AT THIS TIME BECAME HYPOXIC IN THE MID 60'S% GIVEN 100 % FIO2. R.T AT BEDSIDE. REMOVED PILLOW FROM PATIENT'S BACK. NOW SUPINE. PATIENT'S O2 SATS RETURNED TO 100% WILL RELAY TO NIGHT RN. CONTINUE CARE.
--- NOTE | 2019-03-19 19:30 | NUR ---
REPORT RECEIVED AND ASSUMED CARE.
--- NOTE | 2019-03-19 20:00 | NUR ---
INCREASED SEDATION FROM 5MG TO 6MG/HR PATIENT STACKING SOME BREATHS ON VENTILATOR; WILL CONT. TO MONITOR.
--- NOTE | 2019-03-19 23:10 | NUR ---
PT. PROVIDED CARO-CARE AND CHLORHEXIDINE BATH WITH PARTIAL LINEN CHANGE; PT. TOLERATED WELL.
[2019-03-20] VITALS (104 sets, daily range): BP systolic 110–163; BP diastolic 43–69
[2019-03-20] MEDS: methylPREDNISolone SOD SUCC 40 MG/ML VL IV SCH ×4 (00:25→17:29)
[2019-03-20 04:34] LABS: Hematocrit 35.7 % (36.0-46.0); Hemoglobin 11.7 g/dL (12.2-16.2)
[2019-03-20 04:56] LABS: % Iron Saturation 37.2 % (15-50)
[2019-03-20] MEDS: ALBUTEROL SULF 2.5 MG/0.5ML(0.5%) NEB SOLN NEB SCH ×3 (05:53→18:05)
[2019-03-20] MEDS: IPRATROPIUM BROM 0.5 MG/2.5ML INH SOL NEB SCH ×3 (05:53→18:05)
[2019-03-20] MEDS: BUDESONIDE (INHALATION) 0.5 MG/2 ML NEB NEB SCH ×2 (05:53→18:05)
[2019-03-20 06:52] LABS: BUN/Creatinine Ratio 5.7; Calcium 7.5 mg/dL (8.5-10.1); Potassium 3.5 mmol/L (3.5-5.1)
[2019-03-20] MEDS ORDERED: SODIUM CHL 0.9% 1000 ML BAG XX ONE (07:00)
--- NOTE | 2019-03-20 07:11 | NUR ---
REPORT GIVEN TO THEO WICK.
[2019-03-20] MEDS: NICARDIPINE IV SCH ×3 (07:59→20:22)
[2019-03-20] MEDS: SODIUM CHL 0.9% IV SCH ×3 (07:59→20:22)
[2019-03-20] MEDS: fentaNYL Drip 2500mCg/250mlNS 250 ML IV SCH (09:42)
[2019-03-20] MEDS: ENOXAPARIN SOD 30 MG/0.3 ML SYRINGE SC SCH (10:00)
[2019-03-20] MEDS: FAMOTIDINE (10MG/ML) 2ML VL IV SCH (10:00)
--- NOTE | 2019-03-20 19:15 | NUR ---
OPENING NOTE RECEIVED REPORT AND ASSUMED CARE FROM DELANO VENEGAS.
--- NOTE | 2019-03-20 22:35 | NUR ---
SEDATION VACATION TURNED OFF VERSED. PLACED MITTENS ON PT FOR SAFETY. WILL CONTINUE TO MONITOR
[2019-03-21] VITALS (102 sets, daily range): BP systolic 118–165; BP diastolic 6–73
[2019-03-21] MEDS: methylPREDNISolone SOD SUCC 40 MG/ML VL IV SCH ×5 (00:12→23:38)
[2019-03-21] MEDS: NICARDIPINE IV SCH ×7 (00:24→23:38)
[2019-03-21] MEDS: SODIUM CHL 0.9% IV SCH ×7 (00:24→23:38)
--- NOTE | 2019-03-21 00:25 | NUR ---
SEDATION REMAINS OFF AT THIS TIME. NO S/S OF PAIN BEHAVIORS. WILL CONTINUE TO MONITOR
[2019-03-21 03:59] LABS: Basophils # (auto) 0 uL; Basophils % (auto) 0.2 % (0.0-2.0); Eosinophils # (auto) 0 uL; Hematocrit 32.9 % (36.0-46.0); Hemoglobin 10.9 g/dL (12.2-16.2); Lymphocytes # (auto) 0.3 uL; Lymphocytes % (auto) 3.5 % (10.0-50.0); Mean Corpuscular Hgb Conc. 33.2 g/dL (32.0-36.0); Mean Corpuscular Volume 102.3 fL (80.0-100.0); Monocytes # (auto) 0.3 uL; Monocytes % (auto) 3.7 % (0.0-12.0); Neutrophils # (auto) 6.8 uL; Neutrophils % (auto) 92.6 % (37.0-80.0); Platelet Count (auto) 274 10^3/uL (140-450); Red Blood Cells 3.22 10^6/uL (4.0-5.20); Red Cell Distribution Width 18.1 % (11.8-14.3); White Blood Cell 7.4 10^3/uL (4.4-10.8)
[2019-03-21 04:13] LABS: Calcium 7.4 mg/dL (8.5-10.1); Potassium 3.5 mmol/L (3.5-5.1)
--- NOTE | 2019-03-21 04:49 | NUR ---
SEDATION REMAINS OFF AT THIS TIME WITH NO CHANGES. NO S/S OF PAIN BEHAVIORS. WILL CONTINUE TO MONITOR
[2019-03-21] MEDS: BUDESONIDE (INHALATION) 0.5 MG/2 ML NEB NEB SCH ×2 (05:55→18:17)
[2019-03-21] MEDS: IPRATROPIUM BROM 0.5 MG/2.5ML INH SOL NEB SCH ×3 (05:55→18:16)
[2019-03-21] MEDS: ALBUTEROL SULF 2.5 MG/0.5ML(0.5%) NEB SOLN NEB SCH ×3 (05:55→18:16)
[2019-03-21] MEDS: MORPHINE SULF INJ 2 MG/ML SYRINGE 1ML IV PRN (06:37)
--- NOTE | 2019-03-21 07:20 | NUR ---
CLOSING NOTE REPORT GIVEN AND CARE ENDORSED TO DELANO VENEGAS
[2019-03-21] MEDS ORDERED: SODIUM CHL 0.9% 1000 ML BAG XX ONE (08:00)
--- NOTE | 2019-03-21 08:00 | NUR ---
OPENING SHIFT NOTE ASSUMED CARE FROM NOC RN, PATIENT REMAINS ON VENT, ON NICARDIPINE DRIP, SEE IV SPREADSHEET FOR TITRATION, CENTRAL LINE TO THE RIGHT SUBCLAVIAN PATENT AND INTACT, GARCIA CATHETER STILL WITHOUT URINE OUTPUT, OGT IN PLACE. BED IN LOWEST POSITION WITH SIDE RAILS UP, BED ALARM ON. WILL CONTINUE CARE.
[2019-03-21] MEDS: MIDAZOLAM DRIP 50 mg/50mL 50 ML IV SCH (09:00)
[2019-03-21] MEDS: fentaNYL Drip 2500mCg/250mlNS 250 ML IV SCH (09:42)
[2019-03-21] MEDS: ENOXAPARIN SOD 30 MG/0.3 ML SYRINGE SC SCH (10:00)
[2019-03-21] MEDS: FAMOTIDINE (10MG/ML) 2ML VL IV SCH (10:00)
--- NOTE | 2019-03-21 11:05 | NUR ---
SEDATION REMAINS OFF AT THIS TIME WITH NO CHANGES. NO S/S OF PAIN BEHAVIORS. WILL CONTINUE TO MONITOR
--- NOTE | 2019-03-21 13:06 | NUR ---
DIALYSIS STOPPED. 2LITERS REMOVED BY DIALYSIS NURSE.
[2019-03-21] MEDS ORDERED: PPN PER PHARMACY 0 ML IV SCH (13:30)
--- NOTE | 2019-03-21 13:55 | NUR ---
PATIENT OPENS EYES BUT DOESN'T TRACK OR FOLLOW COMMANDS. PATIENT HAS BOTH EYES THAT HAVE BEEN CONTINUOUSLY ROLLING UP TO LOOK AT TOP OF HEAD AREA. PATIENT DOESN'T MOVE ARMS, LEGS OR KEEP EYES OPEN LONG ENOUGH FOR CPAP TRIAL AT THIS TIME.
--- NOTE | 2019-03-21 14:00 | NUR ---
Respiratory note: PT IS AWAKE BUT NOT TRACKING/FOLLOWING COMMANDS. PT NOT READY FOR CPAP TRIAL AT THIS TIME. RN AWARE. FAMILY AT BEDSIDE. WILL CONTINUE TO MONITOR.
[2019-03-21] MEDS ORDERED: CALCIUM GLUC 4.65meq/50ml D5AE 50 ML IV ONE (14:30)
[2019-03-21 14:40] LABS: Magnesium 2.3 mg/dL (1.6-2.6); Phosphorus 3.4 mg/dL (2.5-4.90)
--- NOTE | 2019-03-21 14:54 | NUR ---
Nutrition Follow-up Notes Wt.: 40.9 kg Pt remains intubated, sedated, no immediate family member at bedside during rounds earlier. Pt's currently NPO with no new diet order per RN. per records pt to have HD today. RN informed of diet rec per MD approval Est. Needs: 1250 kcal to 1450 kcal (30-35 kcal/kgBW), 50 gms to 62 gms pro (1.2-1.5 gms/kgBW d/t ESRD on HD). Will continue to monitor pertinent labs and reassess nutrient need prn Labs: BUN 53 H, CREAT 6.66 H, GLU 122 H, CA 7.4 L. Skin: Js scale 13, mod risk, pt's with bruise on leg per RN doc GI: Pt had 2 BM on 03/17 per coat maker. PES: Increased nutrient needs r/t acute/chronic medical condition aeb 91% IBW, BMI 18.5 kg/m2, decreased muscle mass, intubated, sedated, ERSD on HD, NPO. Altered nutrition related lab values r/t current/chronic medical condition aeb hyperglycemia, hypochloremia, elev. renal labs,AST, hypocalcemia and mild hypoalbuminemia Will continue to monitor NPO status, skin status, pertinent labs and weight trend. F/u in 2 to 3 days. Rec.: 1.) If still NPO in next 48 hrs, consider alternate nutrition support if medically appropriate. 2.) EN support preferred with formula choice of Nephro Carb Steady @ 35 ml/hr goal rate as tolerated. 3.) If Albumin level continues trending down, consider Prostat 1 pkt BID. 4.) Consider daily Neprhovier and Asc acid 500 mgs BID prn. 5.) Advance gradually to oral diet when medically appropriate. 6.) Refer to RD for further nutrition education and weight monitoring upon discharged 7.) Continue current plan of care.
--- NOTE | 2019-03-21 18:17 | NUR ---
Respiratory note: RECEIVED PT ON VENT V17, ETT TO VENT. VENT CONNECTED TO RED OUTLET AND O2 SOURCE, ALARMS ARE SET AND AUDIBLE. AMBU BAG AND MASK AT BEDSIDE. PT HAS EYES OPEN NOT TRACKING BUT RESPONSIVE TO STIMULI. NOT FOLLOWING COMMANDS. BS ARE FINE COURSE SXD SCANT DRAPER/YELLOW. PTS FAMILY AT BEDSIDE. MED NEB TX GIVEN INLINE WITHOUT ADVERSE REACTION NOTED. RT NAME AND PAGER ASSIGNMENT WRITTEN ON PTS ROOM BOARD WILL CONTINUE TO MONITOR Q2H AND NEEDED.
[2019-03-21] MEDS: CLINIMIX PER PHARMACY IV NR (19:19)
[2019-03-21] MEDS: LABETALOL HCL 5 MG/ML ML 20ML VIAL IV PRN ×2 (19:23→23:39)
--- NOTE | 2019-03-21 19:30 | NUR ---
SBP > 150s MAX'D ON NICARDIPINE GTT - LABETALOL PRN GIVEN
--- NOTE | 2019-03-21 19:30 | NUR ---
OPENING NOTES: REMAINS OFF SEDATION SINCE 03/20. OPENS EYES, DOES NOT TRACK, NOR FOLLOW COMMANDS. DOES NOT RESPOND TO PAINFUL STIMULI. DOES HAVE COUGH/GAG REFLEX. TEARS NOTED IN EYES. NSR, HR 100s. SBP 150s ON NICARDIPINE GTT. 8.0 ETT 24 AT THE LIP. EVEN AND UNLABORED BREATHING ON CURRENT VENT SETTINGS. SpO2> 98%. COPIOUS AMOUNTS OF THICK ORAL SECRETIONS. ABD SOFT. HYPOACTIVE BS. -FLATUS. LBM 03/17. OGT WITH + AIR BOLUS, PLACED TO LIS. GARCIA IN PLACE, BUT ANURIC. SKIN GROSSLY INTACT, SEE SKIN AND WOUND FLOWSHEET FOR ASSESSMENT. RIGHT SC TLC, CDI, PATENT WITH BLOOD RETURN. REINFORCED POC. MAINTAINED PATIENT SAFETY: BED LOCKED AND IN THE LOWEST POSITION, FREQUENT VISUAL CHECKS. NO FAMILY AT BEDSIDE AT THIS TIME. WILL CONT CARE Addendum: 03/21/19 at 2055 by Lisy Banks RN RN ETT 7.5
[2019-03-21] MEDS: InsuLIN REG 1unit/0.01ml Soln (100units/ml) SC SCH ×2 (19:42→23:41)
[2019-03-21] MEDS: ACCU-CHEK COMFORT CURVE STRIP VI SCH ×2 (19:43→23:41)
[2019-03-21] MEDS ORDERED: DEXTROSE (50%) 50ML SYRG IV SCH (20:00)
--- NOTE | 2019-03-21 20:18 | NUR ---
Respiratory note: AT BEDSIDE FOR ROUTINE VENT CHECK PT APPEARS COMFORTABLY. NO VENT CHANGES MADE.
[2019-03-21] MEDS ORDERED: EPOETIN ALFA 10,000 UNIT/1 ML VIAL SC ONE (21:00)
--- NOTE | 2019-03-21 21:10 | NUR ---
SEDATION VACATION: PATIENT OFF OF SEDATION SINCE 2199 LAST NIGHT. OPENS EYES BUT DOES NOT TRACK, NOR MOVE, NOR FOLLOW COMMANDS, NO RESPONSE TO PAINFUL STIMULI. +COUGH/GAG Addendum: 03/21/19 at 2111 by Lisy Banks RN RN Amended: Links added.
--- NOTE | 2019-03-21 22:14 | NUR ---
Respiratory note: AT BEDSIDE FOR ROUTINE CHECK. NO SX DONE AT THIS TIME. WILL CONTINUE TO MONITOR.
--- NOTE | 2019-03-21 22:30 | NUR ---
BP SLIGHTLY ELEVATED, NOTED WITH TEARS IN HER EYES - TYLENOL PRN GIVEN
[2019-03-22] VITALS (109 sets, daily range): BP systolic 101–231; BP diastolic 39–111
--- NOTE | 2019-03-22 00:09 | NUR ---
Respiratory note: AT BEDSIDE FOR ROUTINE CHECK. NO CHANGES MADE.
--- NOTE | 2019-03-22 00:38 | NUR ---
NEURO ASSESSMENT: OPENS EYES SPONTANEOUSLY BUT OTHERWISE DOES NOT FOLLOW COMMANDS, TRACK, NOR MOVE BODY. NO OWN BREATHS INITIATED BY THE PATIENT. WILL CONT CARE
--- NOTE | 2019-03-22 02:02 | NUR ---
Respiratory note: AT BEDSIDE FOR ROUTINE CHECK. NO CHANGES MADE. RN AYDEE AT BEDSIDE.
--- NOTE | 2019-03-22 02:39 | NUR ---
BED BATH WITH CHG WIPES, CARO CARE, GARCIA CARE, ORAL CARE, HAIR CARE, AND PARTIAL LINEN CHANGE COMPLETED
[2019-03-22] MEDS: MORPHINE SULF INJ 2 MG/ML SYRINGE 1ML IV PRN ×2 (02:40→20:06)
--- NOTE | 2019-03-22 02:40 | NUR ---
MORPHINE PRN GIVEN - PATIENT WITH COUGHING EPISODE S/P REPOSITIONING AND BATH
--- NOTE | 2019-03-22 04:12 | NUR ---
Respiratory note: AT BEDSIDE FOR END OF SHIFT VENT CHECK. ACCUMULATED WATER IN TUBING WAS DRAINED. WILL HAVE DAY SHIFT CONTINUE PLAN OF CARE.
[2019-03-22 04:25] LABS: Basophils # (auto) 0 uL; Eosinophils # (auto) 0 uL; Eosinophils % (auto) 0.1 % (0.0-7.0); Lymphocytes # (auto) 0.2 uL; Monocytes # (auto) 0.2 uL; Neutrophils # (auto) 5.5 uL; Nucleated Red Blood Cells % 0.1 %; White Blood Cell 5.9 10^3/uL (4.4-10.8)
[2019-03-22 04:26] LABS: Basophils % (auto) 0.1 % (0.0-2.0); Hematocrit 32.4 % (36.0-46.0); Hemoglobin 10.6 g/dL (12.2-16.2); Lymphocytes % (auto) 3.3 % (10.0-50.0); Mean Corpuscular Hemoglobin 33.9 pg (28.0-32.0); Mean Corpuscular Hgb Conc. 32.8 g/dL (32.0-36.0); Mean Corpuscular Volume 103.5 fL (80.0-100.0); Monocytes % (auto) 3.8 % (0.0-12.0); Neutrophils % (auto) 92.7 % (37.0-80.0); Platelet Count (auto) 239 10^3/uL (140-450); Red Blood Cells 3.13 10^6/uL (4.0-5.20); Red Cell Distribution Width 17.2 % (11.8-14.3)
[2019-03-22 04:42] LABS: Albumin 2.6 g/dL (3.4-5.0); Calcium 7.2 mg/dL (8.5-10.1); Magnesium 2.5 mg/dL (1.6-2.6); Potassium 3.9 mmol/L (3.5-5.1)
[2019-03-22 04:49] LABS: BUN/Creatinine Ratio 10.1; Bilirubin, Total 0.5 mg/dL (0.2-1.0); Phosphorus 4.6 mg/dL (2.5-4.90); Pre Albumin 27.5 mg/dL (20.0-40.0)
[2019-03-22] MEDS: InsuLIN REG 1unit/0.01ml Soln (100units/ml) SC SCH ×4 (05:32→23:08)
[2019-03-22] MEDS: methylPREDNISolone SOD SUCC 40 MG/ML VL IV SCH ×4 (05:32→23:06)
[2019-03-22] MEDS: ACCU-CHEK COMFORT CURVE STRIP VI SCH ×4 (05:32→23:08)
[2019-03-22] MEDS: ALBUTEROL SULF 2.5 MG/0.5ML(0.5%) NEB SOLN NEB SCH ×3 (05:42→18:12)
[2019-03-22] MEDS: IPRATROPIUM BROM 0.5 MG/2.5ML INH SOL NEB SCH ×3 (05:42→18:12)
[2019-03-22] MEDS: BUDESONIDE (INHALATION) 0.5 MG/2 ML NEB NEB SCH ×2 (05:43→18:12)
--- NOTE | 2019-03-22 06:41 | NUR ---
CLOSING NOTE: NEURO STATUS REMAINS UNCHANGED. PUPILS STILL 3 AND BRISK, PERRLA. NO MOVEMENT OR TRACKING OR FOLLOWING COMMANDS. ABLE TO WEAN OF CARDENE GTT. WILL ENDORSE CARE TO DAY SHIFT RN
--- NOTE | 2019-03-22 07:17 | NUR ---
REPORT AND CARE ENDORSED TO THEO RODRIGES
[2019-03-22] MEDS: MIDAZOLAM DRIP 50 mg/50mL 50 ML IV SCH (09:00)
[2019-03-22] MEDS: fentaNYL Drip 2500mCg/250mlNS 250 ML IV SCH (09:42)
[2019-03-22] MEDS: FAMOTIDINE (10MG/ML) 2ML VL IV SCH (09:59)
[2019-03-22] MEDS: ENOXAPARIN SOD 30 MG/0.3 ML SYRINGE SC SCH (09:59)
[2019-03-22] MEDS ORDERED: TPN PER PHARMACY 500 ML IV SCH (10:00)
--- NOTE | 2019-03-22 11:57 | NUR ---
Resumed care at 0700. Orders reviewed and ongoing assessments being done. Being treated for multiple problems and remains intubated. Sedation has been off of approximately 48 hours. Opens eyes spontaneously, no sustain eye contact and can not follow any simple directions. Dr. Gagnon was in to round at 0930, no new orders, continue plan of care. Dr. Carlos, inside wireman rounded at 1040. discussed condition and plan of care.
--- NOTE | 2019-03-22 14:32 | NUR ---
Nutrition consult/Follow-up Notes Wt.: 40.7 kg Pt remains intubated, sedated, no immediate family member at bedside during rounds earlier. Pt's currently NPO and initiated on PN support from last night @ 42 ml/hr providing 510 kcals and 42.5 gm proteins. pt with inadequate PN support as it meets 35-40% kcals and 67-84% proteins Est. Needs: 1250 kcal to 1450 kcal (30-35 kcal/kgBW), 50 gms to 62 gms pro (1.2-1.5 gms/kgBW d/t ESRD on HD). Will continue to monitor pertinent labs and reassess nutrient need prn Labs: BUN 44 H, CREAT 4.34 H, CA 8.2 L, ALB 2.6 L, TG/PREALB wnl Skin: Js scale 13, mod risk, pt's with bruise on leg per RN doc GI: Pt had 2 BM on 03/17 gastric drainge 10 ml today per front end specialist. PES: Increased nutrient needs r/t acute/chronic medical condition aeb 91% IBW, BMI 18.5 kg/m2, decreased muscle mass, intubated, sedated, ERSD on HD, NPO. Altered nutrition related lab values r/t current/chronic medical condition aeb hyperglycemia, hypochloremia, elev. renal labs,AST, hypocalcemia and mild hypoalbuminemia Will continue to monitor NPO status, PN support, skin status, pertinent labs and weight trend. F/u in 2 to 3 days. Rec.: 1.) advance PN support to meet > 75% of needs.. 2) EN support preferred with formula choice of Nephro Carb Steady @ 35 ml/hr goal rate as tolerated. 3.) If Albumin level continues trending down, consider Prostat 1 pkt BID. 4.) Consider daily Neprhovier and Asc acid 500 mgs BID prn. 5.) Advance gradually to oral diet when medically appropriate. 6.) Refer to RD for further nutrition education and weight monitoring upon discharged 7.) Continue current plan of care.
--- NOTE | 2019-03-22 15:34 | NUR ---
Humphrey catheter dc'd (with ESRD on hemodialysis and is anuric) Order to discontinue humphrey catheter. Humphrey dc'd with clean technique following deflation of balloon. Continue care. Changed draw sheet and disposable pad. Skin care done and noted old scar on coccyx area. [place] in color, is dark skin. Skin intact. Area cleansed and applied Optifoam dressing for preventative care. Photo taken.
[2019-03-22] MEDS: LABETALOL HCL 5 MG/ML ML 20ML VIAL IV PRN ×2 (18:37→23:03)
--- NOTE | 2019-03-22 19:05 | NUR ---
No neurological changes, eyes remains open with no sustain eye contact. Continue current plan of care.
--- NOTE | 2019-03-22 19:30 | NUR ---
Initial Assessment Patient received laying on bed on mechanical ventilation and no sedation. Patient opens eyes spontaneously but does not track, follow commands, or move any extremities. ETT secured with [place], Ambu bag at bedside, ventilator plugged into red outlet, oral care and suction rendered. HOB elevated greater than 30 degrees. OGT clamped. RN verified proper placement via auscultation with air bolus. Right subclavian TLC dressing CDI with no s/s of infiltration or phlebitis noted-patent x3 ports. TPN tubing and bag changed after verifying with 2nd RN. Abd soft and non-tender with BS present x4 quadrants. LUE fistula present with palpable thrill and bruit. Neurovascular status intact with palpable distal pulses, skin warm to touch, capillary refill brisk. Optifoam gentle adhesive dressing CDI to sacral area to prevent friction and shear. Bed in lowest position, side rails up, bed brakes st, bed alarm set, all alarms audible, in direct view of nurses station. Continue close monitoring.
--- NOTE | 2019-03-22 19:45 | NUR ---
Nicardipine initiated BP remains elevated despite PRN medication given, started back on Nicardipine gtt per MD order.
[2019-03-22] MEDS: CLINIMIX PER PHARMACY IV NR (19:49)
[2019-03-22] MEDS ORDERED: TPN PER PHARMACY IV NR ×9 (20:00)
--- NOTE | 2019-03-22 20:06 | NUR ---
Pain Management Patient had sudden increase in BP despite day shift RN's administration of PRN labetalol. RN medicated with Morphine per MD order via slow IVP for possible pain (pt unable to express if/when she is having pain). Patient tolerated well with no adverse reaction noted.
--- NOTE | 2019-03-22 21:00 | NUR ---
SCD's applied to BLE for DVT prophylaxis.
--- NOTE | 2019-03-22 23:03 | NUR ---
Blood pressure management patient maxed out on Nicardipine but SBP remains >160. Labetalol administered per MD order via slow IVP.
[2019-03-23] VITALS (105 sets, daily range): BP systolic 105–227; BP diastolic 41–86
--- NOTE | 2019-03-23 01:00 | NUR ---
Ongoing Assessment No changes or incidents to report. Patient resting with no s/s of distress or pain noted, being turned, all bony prominences and heels offloaded with pillows, skin is clean and dry, HOB elevated, oral care and suction being rendered frequently/PRN. Central line intact and patent with no s/s of infiltration or phlebitis noted. Bed in lowest position, side rails up, bed brakes set, all alarms audible. Continue close monitoring.
--- NOTE | 2019-03-23 03:00 | NUR ---
Hygiene patient given CHG bath, all linens and gown changed. Skin re-assessed for any changes and none noted. patient tolerated well.
--- NOTE | 2019-03-23 04:00 | NUR ---
Ongoing television producer sukumar blood from central line for am labs and only able to get blood return from the brown port. Ordered CXR per protocol to ensure proper placement of line. No swelling, erythema, or skin discoloration to site. Aside from that there are no changes or incidents to report. Patient resting with no s/s of distress or pain noted, being turned, all bony prominences and heels offloaded with pillows, skin is clean and dry, HOB elevated, oral care and suction being rendered frequently/PRN. Bed in lowest position, side rails up, bed brakes set, all alarms audible. Continue close monitoring.
[2019-03-23 04:36] LABS: Calcium 7.4 mg/dL (8.5-10.1); Potassium 4.3 mmol/L (3.5-5.1)
[2019-03-23 04:41] LABS: Albumin 2.7 g/dL (3.4-5.0); BUN/Creatinine Ratio 13.5; Bilirubin, Total 0.5 mg/dL (0.2-1.0); Magnesium 2.4 mg/dL (1.6-2.6); Phosphorus 4.7 mg/dL (2.5-4.90); Total Protein 6.2 g/dL (6.4-8.2)
[2019-03-23] MEDS: InsuLIN REG 1unit/0.01ml Soln (100units/ml) SC SCH ×3 (05:26→17:40)
[2019-03-23] MEDS: ACCU-CHEK COMFORT CURVE STRIP VI SCH ×4 (05:26→23:56)
[2019-03-23] MEDS: methylPREDNISolone SOD SUCC 40 MG/ML VL IV SCH ×3 (05:27→17:40)
[2019-03-23] MEDS: BUDESONIDE (INHALATION) 0.5 MG/2 ML NEB NEB SCH ×2 (06:00→18:17)
[2019-03-23] MEDS: IPRATROPIUM BROM 0.5 MG/2.5ML INH SOL NEB SCH ×3 (06:00→18:17)
[2019-03-23] MEDS: ALBUTEROL SULF 2.5 MG/0.5ML(0.5%) NEB SOLN NEB SCH ×3 (06:00→18:17)
--- NOTE | 2019-03-23 07:00 | NUR ---
Report given No changes or incidents to report, continues to rest with no s/s of distress or pain, Central line remains patent with no s/s of infiltration or phlebitis noted (TPN only running through brown port as that is the one that gets good blood return), all VSS. Care endorsed to day shift RN.
[2019-03-23] MEDS: MIDAZOLAM DRIP 50 mg/50mL 50 ML IV SCH (09:00)
[2019-03-23] MEDS: fentaNYL Drip 2500mCg/250mlNS 250 ML IV SCH (09:42)
[2019-03-23] MEDS: ENOXAPARIN SOD 30 MG/0.3 ML SYRINGE SC SCH (10:34)
[2019-03-23] MEDS: FAMOTIDINE (10MG/ML) 2ML VL IV SCH (10:34)
--- NOTE | 2019-03-23 11:05 | NUR ---
RT Transport Note: Patient transported to {CT} with RN {ANTELMO}. Patient transported to and from procedure on ventilator with previous ordered settings. Patient on gambling monitor with alarms set and audible, ambu-bag/mask connected to 02 tank. Patient returned to room with no adverse reaction noted. Transport completed without incident.
[2019-03-23] MEDS: MORPHINE SULF INJ 2 MG/ML SYRINGE 1ML IV PRN ×2 (14:49→21:42)
[2019-03-23] MEDS: NICARDIPINE IV SCH ×3 (14:57→21:18)
[2019-03-23] MEDS: SODIUM CHL 0.9% IV SCH ×3 (14:57→21:18)
--- NOTE | 2019-03-23 16:03 | NUR ---
Resumed care at 0700. Orders reviewed and ongoing assessments being done. Being treated for multiple problems and remains intubated. Sedation has been off of approximately 72 hours. Opens eyes spontaneously, no sustain eye contact and can not follow any simple directions. Dr. Gagnon was in to round at 0930, discussed new orders. Son Miguel at bedside and Dr. Gagnon was able to speak with him. Escorted to radiology at [address] Scan of the head and chest. Arrived back to room at [address] Carlos, copy chief rounded at 0944, schedule for hemodialysis tomorrow. Had to restart Cardene gtt for BP stability. Restarted at 0834 BP 179/67 and steadily rising. Titrating as appropriated and at 5mg/hr at this time.
--- NOTE | 2019-03-23 18:50 | NUR ---
No remarkable changes, continues to open eyes but not following any commands. Does not sustain eye contact. Continue to titrate Cardene as appropriate.
--- NOTE | 2019-03-23 19:10 | NUR ---
OPENING NOTE RECEIVED REPORT AND ASSUMED CARE OF PATIENT FROM ANTELMO VENEGAS
--- NOTE | 2019-03-23 19:50 | NUR ---
TITRATED NICARDIPINE TO 9.5 PER BP PARAMETER ORDER
[2019-03-23] MEDS ORDERED: TPN PER PHARMACY IV NR ×9 (20:00)
--- NOTE | 2019-03-23 20:10 | NUR ---
TITRATED NICARDIPINE TO 11.5 PER BP PARAMETER ORDER
--- NOTE | 2019-03-23 20:25 | NUR ---
TITRATED NICARDIPINE TO 12.5 PER BP PARAMETER ORDER
--- NOTE | 2019-03-23 21:12 | NUR ---
TITRATED NICARDIPINE TO 13.5 PER BP PARAMETER ORDER
--- NOTE | 2019-03-23 21:20 | NUR ---
TITRATED NICARDIPINE TO 15 PER BP PARAMETER ORDER
--- NOTE | 2019-03-23 21:40 | NUR ---
PAGED HOSPITALIST FOR ELEVATED BP NOT RESOLVED WITH NICARDIPINE DRIP AND PRN MEDICATIONS. AWAITING FOR CALL BACK
[2019-03-23] MEDS: LABETALOL HCL 5 MG/ML ML 20ML VIAL IV PRN (21:53)
--- NOTE | 2019-03-23 23:00 | NUR ---
HOSPITALIST MARIA A CALLED BACK UPDATED HOSPITALIST ON PT STATUS. ORDERS RECEIVED
[2019-03-23] MEDS ORDERED: METOPROLOL TARTRATE 50 MG TAB PO ONE (23:30)
[2019-03-23] MEDS ORDERED: hydrALAZINE HCL 20 MG/ML VL IV ONE (23:30)
[2019-03-24] VITALS (108 sets, daily range): BP systolic 94–210; BP diastolic 40–101
[2019-03-24] MEDS: InsuLIN REG 1unit/0.01ml Soln (100units/ml) SC SCH ×4 (00:07→17:45)
[2019-03-24] MEDS: methylPREDNISolone SOD SUCC 40 MG/ML VL IV SCH ×4 (00:08→17:44)
[2019-03-24] MEDS: MORPHINE SULF INJ 2 MG/ML SYRINGE 1ML IV PRN (01:52)
[2019-03-24] MEDS: LABETALOL HCL 5 MG/ML ML 20ML VIAL IV PRN ×2 (03:00→16:26)
[2019-03-24 04:31] LABS: Basophils # (auto) 0 uL; Eosinophils # (auto) 0 uL; Hemoglobin 11.2 g/dL (12.2-16.2); Lymphocytes # (auto) 0.1 uL; Lymphocytes % (auto) 1.6 % (10.0-50.0); Monocytes # (auto) 0.3 uL
[2019-03-24 04:36] LABS: Mean Corpuscular Hemoglobin 33.9 pg (28.0-32.0); Mean Corpuscular Volume 102.7 fL (80.0-100.0); Monocytes % (auto) 4.5 % (0.0-12.0); Neutrophils # (auto) 6.5 uL; Neutrophils % (auto) 93.9 % (37.0-80.0); Platelet Count (auto) 252 10^3/uL (140-450); Red Blood Cells 3.31 10^6/uL (4.0-5.20); Red Cell Distribution Width 16.9 % (11.8-14.3); White Blood Cell 6.9 10^3/uL (4.4-10.8)
[2019-03-24 04:50] LABS: Potassium 4.8 mmol/L (3.5-5.1)
--- NOTE | 2019-03-24 04:50 | NUR ---
PAGED HOSPITALIST FOR ELEVATED BP NOT RESOLVED WITH NICARDIPINE DRIP AND PRN MEDICATIONS. AWAITING FOR CALL BACK
--- NOTE | 2019-03-24 04:53 | NUR ---
HOSPITALIST MARIA A CALLED BACK UPDATED HOSPITALIST ON PT STATUS. ORDERS RECEIVED AND READ BACK
[2019-03-24 04:57] LABS: Albumin 2.6 g/dL (3.4-5.0); Bilirubin, Total 0.7 mg/dL (0.2-1.0); Calcium 7.6 mg/dL (8.5-10.1); Magnesium 2.4 mg/dL (1.6-2.6); Phosphorus 4.3 mg/dL (2.5-4.90)
[2019-03-24] MEDS ORDERED: hydrALAZINE HCL 20 MG/ML VL IV ONE (05:00)
[2019-03-24] MEDS: ALBUTEROL SULF 2.5 MG/0.5ML(0.5%) NEB SOLN NEB SCH ×3 (05:47→18:36)
[2019-03-24] MEDS: IPRATROPIUM BROM 0.5 MG/2.5ML INH SOL NEB SCH ×3 (05:47→18:36)
[2019-03-24] MEDS: BUDESONIDE (INHALATION) 0.5 MG/2 ML NEB NEB SCH ×2 (05:48→18:37)
[2019-03-24] MEDS: ACCU-CHEK COMFORT CURVE STRIP VI SCH ×3 (06:57→17:38)
[2019-03-24] MEDS ORDERED: SODIUM CHL 0.9% 1000 ML BAG XX ONE (07:00)
[2019-03-24] MEDS: SODIUM CHL 0.9% IV SCH ×2 (07:46→23:27)
[2019-03-24] MEDS: NICARDIPINE IV SCH ×2 (07:46→23:27)
[2019-03-24] MEDS: MIDAZOLAM DRIP 50 mg/50mL 50 ML IV SCH (09:00)
--- NOTE | 2019-03-24 09:06 | NUR ---
DR. ROBERSON HERE TO SEE PATIENT. SEE MD NOTES AND EMR FOR ANY NEW ORDERS.
[2019-03-24] MEDS: fentaNYL Drip 2500mCg/250mlNS 250 ML IV SCH (09:42)
[2019-03-24] MEDS: ENOXAPARIN SOD 30 MG/0.3 ML SYRINGE SC SCH (10:00)
--- NOTE | 2019-03-24 11:37 | NUR ---
Nutrition Follow-up Notes Wt.: 44.7 kg today. Note 3.8 kg weight gain in last 2 days likely d/t ? fluid retention aeb on dialysis, positive I & Os for past few days. Pt remains intubated, sedated, no immediate family member at bedside except for RN for ongoing dialysis dialysis during rounds earlier. Pt's currently NPO with TPN @ 45 ml/hr providing 1150 kcal, 50 gms pro, 950 NPCs and 9% Fat. Pt with adequate PN support d/t mod initiation rate delivery of concentrated formula aeb current EN infusion meets 79% to 92% of est caloric needs and 81% to 100% of est protein needs. Noted pt's to receive tonight another TPN@ 55 ml/hr providing 1460 kcal, 60 gms pro, 1120 NPCs and 14% Fat. Est. Needs: 1250 kcal to 1450 kcal (30-35 kcal/kgBW), 50 gms to 62 gms pro (1.2-1.5 gms/kgBW d/t ESRD on HD). Will continue to monitor pertinent labs and reassess nutrient need prn Labs: Gluc 168 H, BUN 103 H, Cr 6.86 H, Ca 7.6 L, AST 53 H, ALP 126 H, Tpro 6.0 L, Alb 2.6 L,; Prealb 27.5 wnl, Trig 119 wnl Skin: Js scale 14, mod risk, pt's left lower leg bruise per bulk materials handling plant operator. GI: Pt had 2x BM on 03/17 per bulk materials handling plant operator. PES: Increased nutrient needs r/t acute/chronic medical condition aeb 91% IBW, BMI 18.5 kg/m2, decreased muscle mass, intubated, sedated, ERSD on HD, NPO. Altered nutrition related lab values r/t current/chronic medical condition aeb hyperglycemia, hypochloremia, elev. renal labs,AST, hypocalcemia and mild hypoalbuminemia Will continue to monitor NPO status, PN tolerance, skin status, pertinent labs and weight trend. F/u in 2 to 3 days. Rec.: 1.) If still NPO, continue PN support that meets at least 75% of est caloric needs. 2.) Advance gradually to oral diet or consider EN support with formula choice of Nephro Carb Steady @ 35 ml/hr goal rate as tolerated, if medically appropriate. 3.) Refer to RD for further nutrition education and weight monitoring upon discharged. 4.) Continue current plan of care.
--- NOTE | 2019-03-24 11:41 | NUR ---
DR. CEJA HERE TO SEE PATIENT. SEE MD NOTES AND EMR FOR ANY NEW ORDERS.
--- NOTE | 2019-03-24 12:00 | NUR ---
WOUND CARE NOTE: Weekly reevaluation by wound care team. Patient on skin integrity rounding due to intubation status and low Js score. Patient remains intubated. Last Js score is 13. Patient currently receiving dialysis treatment today. Skin remains unchanged. RECOMMENDATIONS: Nursing to continue with previous skin/wound care orders; wound care team to continue to follow.
--- NOTE | 2019-03-24 13:00 | NUR ---
DIALYSIS PATIENT HAD DIALYSIS TODAY. 2425 ML FLUID REMOVED. PATIENT TOLERATED PROCEDURE WELL.
--- NOTE | 2019-03-24 13:01 | NUR ---
CARDENE DRIP PUT ON HOLD DUE TO DECREASED BLOOD PRESSURE.
[2019-03-24] MEDS: FAMOTIDINE (10MG/ML) 2ML VL IV SCH (13:56)
--- NOTE | 2019-03-24 19:30 | NUR ---
Opening Note Assumed care of pt at this time. Received pt on mechanical ventilator with no sedation. Patient opens eyes spontaneously but does not track, follow commands or move extremities. OGT clamped. RN verified proper placement via auscultation with air bolus. Right subclavian TLC. TPN tubing and bag changed after verifying with 2nd RN. LUE fistula present with palpable thrill and bruit present. Ful assessment done see interventions. pt does not seem to be in any pain. Bed locked in lowest position. Pt in full view of RN.
[2019-03-24] MEDS ORDERED: [UNRECOGNIZED DRUG - OTHER] IV NR ×9 (20:00)
[2019-03-24] MEDS ORDERED: FAT EMULSION IV NR ×9 (20:00)
[2019-03-24] MEDS ORDERED: POTASSIUM CHLORIDE IV NR ×9 (20:00)
[2019-03-24] MEDS ORDERED: SODIUM ACETATE IV NR ×9 (20:00)
[2019-03-24] MEDS ORDERED: EPOETIN ALFA 4,000 UNIT/ML VL SC ONE (21:00)
[2019-03-25] VITALS (103 sets, daily range): BP systolic 98–182; BP diastolic 37–90
[2019-03-25] MEDS: methylPREDNISolone SOD SUCC 40 MG/ML VL IV SCH ×4 (01:06→18:16)
[2019-03-25] MEDS: SODIUM CHL 0.9% IV SCH ×3 (03:00→19:10)
[2019-03-25] MEDS: NICARDIPINE IV SCH ×3 (03:00→19:10)
[2019-03-25 03:59] LABS: Basophils # (auto) 0 uL; Eosinophils # (auto) 0 uL; Lymphocytes # (auto) 0.1 uL; Monocytes # (auto) 0.3 uL; Monocytes % (auto) 4.2 % (0.0-12.0); Nucleated Red Blood Cells % 0.1 %; Red Blood Cells 3.42 10^6/uL (4.0-5.20)
[2019-03-25 04:03] LABS: Basophils % (auto) 0.1 % (0.0-2.0); Hemoglobin 11.6 g/dL (12.2-16.2); Lymphocytes % (auto) 1.8 % (10.0-50.0); Mean Corpuscular Hgb Conc. 33.2 g/dL (32.0-36.0); Mean Corpuscular Volume 102.4 fL (80.0-100.0); Neutrophils # (auto) 7.2 uL; Neutrophils % (auto) 93.9 % (37.0-80.0); Platelet Count (auto) 192 10^3/uL (140-450); Red Cell Distribution Width 17.2 % (11.8-14.3); White Blood Cell 7.6 10^3/uL (4.4-10.8)
[2019-03-25 04:12] LABS: Albumin 2.5 g/dL (3.4-5.0); Calcium 7.6 mg/dL (8.5-10.1); Potassium 4.1 mmol/L (3.5-5.1)
[2019-03-25 04:14] LABS: BUN/Creatinine Ratio 14.5; Bilirubin, Total 0.6 mg/dL (0.2-1.0)
[2019-03-25 04:26] LABS: Magnesium 2.2 mg/dL (1.6-2.6); Phosphorus 4.7 mg/dL (2.5-4.90)
--- NOTE | 2019-03-25 05:19 | NUR ---
CARES PT given chg bath. Partial linen change performed. pt repositioned for comfort. Oral care done. Removed old pressure dressing to dialysis access. Bleeding still continued. New pressure dressing applied. Will continue to monitor.
--- NOTE | 2019-03-25 05:21 | NUR ---
Central Line Dressing Change Central line dressing change done with a sterile technique. Cleansed with chloraprep scrub/alcohol swabs. Serous fluid noted from insertion site. gauze applied and Bio-patch as available. Occlusive dressing applied.
--- NOTE | 2019-03-25 05:23 | NUR ---
Elimination Pt had small amount of liquid green/brown bm.
[2019-03-25] MEDS: ACCU-CHEK COMFORT CURVE STRIP VI SCH ×4 (06:02→18:16)
[2019-03-25] MEDS: InsuLIN REG 1unit/0.01ml Soln (100units/ml) SC SCH ×4 (06:02→18:16)
[2019-03-25] MEDS: IPRATROPIUM BROM 0.5 MG/2.5ML INH SOL NEB SCH ×3 (06:04→18:26)
[2019-03-25] MEDS: ALBUTEROL SULF 2.5 MG/0.5ML(0.5%) NEB SOLN NEB SCH ×3 (06:04→18:26)
[2019-03-25] MEDS: BUDESONIDE (INHALATION) 0.5 MG/2 ML NEB NEB SCH ×2 (06:05→18:26)
--- NOTE | 2019-03-25 07:20 | NUR ---
REPORT REPORT RECEIVED FROM FATOU RNED. PT RESTING IN BED WITH VSS, ON THE VENTILATOR AND WITH A NICARDIPINE DRIP INFUSING.
--- NOTE | 2019-03-25 07:21 | NUR ---
End of shift Report given to THEO Adhikari to assume care.
--- NOTE | 2019-03-25 08:00 | NUR ---
ASSESSMENT PT RESTING WITH EYES OPEN BUT DOES NOT RESPOND TO ANY VERBAL STIMULI OR FOLLOW RYLIE COMMANDS. PUPILS 4 AND BRISK. LUNGS CLEAR THROUGHOUT. O2 SAT OF 100%. ON THE VENTILATOR WITH 7.5 FR ETT/ 24 AT THE LIP, TV 450, AC RATE OF 12, 30% FIO2 AND PEEP OF 5. TELE SR [address] AND INVERTED T WAVE IN LEAD V. PALPABLE PULSES TO ALL EXTREMITIES WITH NO EDEMA NOTED. LEFT ARM AV FISTULA WITH A POSITIVE BRUIT AND THRILL. DRESSING IN PLACE. ABD SOFT WITH + BOWEL SOUNDS. OGT CLAMPED WITH + PLACEMENT VERIFIED AND NO RESIDUAL NOTED. LAST BM WAS EARLIER THIS AM. PT IS ANURIC R/T ESRD AND ON HDX. LAST HDX WAS YESTERDAY WITH 2425 ML REMOVED. PT WITH TLC TO THE RSC WITH DRESSING SATURATED WITH CLEAR FLUID AND GOWN AND SHEET UNDER HER RIGHT SHOULDER WET. COMPLETE LINEN CHANGE DONE AND WHEN DRESSING REMOVED , FOUND THAT SUTURE WAS STILL IN PLACE BUT CATHETER WAS COMPLETELY OUT. STARTED A #20 TO THE PT'S RIGHT WRIST. ATTEMPTED TO START ANOTHER IV TO THE RAC, UNSUCCESSFUL. NOTIFIED JACE, PHARMACIST THAT NO CENTRAL LINE AVAILABLE FOR TPN AND SHOULD BE SWITCHED TO PPN. RESTARTED NICARDIPINE DRIP AT 10 MG/HR. CONTINUE TO MONITOR BP.
--- NOTE | 2019-03-25 08:00 | NUR ---
PT TEACHING PT UNABLE TO BENEFIT FROM PT TEACHING AT THIS TIME SHE IS NOT RESPONSIVE TO VERBAL STIMULI. Addendum: 03/25/19 at 1538 by Zeynep Hampton RN Amended: Links added.
[2019-03-25] MEDS: MIDAZOLAM DRIP 50 mg/50mL 50 ML IV SCH (09:00)
[2019-03-25] MEDS: fentaNYL Drip 2500mCg/250mlNS 250 ML IV SCH (09:03)
[2019-03-25] MEDS ORDERED: INSULIN R IV NR ×2 (09:45)
[2019-03-25] MEDS ORDERED: D10W IV NR ×2 (09:45)
[2019-03-25] MEDS ORDERED: AMINO ACID INFUSION IV NR ×2 (09:45)
[2019-03-25] MEDS: ENOXAPARIN SOD 30 MG/0.3 ML SYRINGE SC SCH (10:10)
[2019-03-25] MEDS: FAMOTIDINE (10MG/ML) 2ML VL IV SCH (10:10)
--- NOTE | 2019-03-25 10:20 | NUR ---
MD VISIT PT SEEN AND EXAMINED BY DR RAMIREZ. UPDATED HIM ON THE TLC BEING OUT AND THAT ONE NEW IV STARTED AND WILL NEED ANOTHER ONE.
--- NOTE | 2019-03-25 13:15 | NUR ---
ORDER RECEIVED FOR MIDLINE PLACEMENT FROM DR RAMIREZ. DARYL, PICC LINE RN, HERE TO PLACE MIDLINE. MADE AWARE UNABLE TO USE LEFT ARM IT HAS AN AV FISTULA.
--- NOTE | 2019-03-25 14:00 | NUR ---
Midline Placement: Patient educated on need for midline placement. All risks and benefits explained and all questions and concerns addresses prior to procedure. 18g/10cm midline inserted via right brachial vein using Ultrasound. Sterile technique utilized. Blood return obtained from the lumen and flushed easily with NS using proper technique. Midline secured with saline lock; biodisc and occlusive dressing applied. Primary RN notified. Midline lot # [id number]. x2 attempts
--- NOTE | 2019-03-25 14:50 | NUR ---
CLINIMIX STARTED PT ON CLINIMIX ORDERED THROUGH NEW MIDLINE TO THE RIGHT UPPER ARM. BP CUFF NOW IN PLACE TO THE RIGHT CALF.
--- NOTE | 2019-03-25 16:20 | NUR ---
FAMILY RECEIVED A PHONE CALL FROM PT'S DAUGHTER IN LAW, AFTER SHE PROVIDED THE PASSWORD, I UPDATED HER ON THE PT'S CURRENT CONDITION AND ANSWERED HER QUESTIONS.
--- NOTE | 2019-03-25 17:45 | NUR ---
FAMILY PT'S SISTER AND NIECE AND NEPHEW AT THE BEDSIDE. UPDATED THEM ON THE PT'S CURRENT CONDITION.
--- NOTE | 2019-03-25 19:30 | NUR ---
REPORT REPORT GIVEN TO ED LAINEZ RN.
--- NOTE | 2019-03-25 19:35 | NUR ---
Opening Note Assumed care of pt at this time. Received pt on mechanical ventilator with no sedation. Patient opens eyes spontaneously but does not track, follow commands or move extremities. OGT clamped. RN verified proper placement via auscultation with air bolus. Right midline placed today. LUE fistula present with palpable thrill and bruit present. Ful assessment done see interventions. pt does not seem to be in any pain. Bed locked in lowest position. Pt in full view of RN.
[2019-03-25] MEDS ORDERED: PPN PER PHARMACY IV NR ×9 (20:00)
[2019-03-26] VITALS (97 sets, daily range): BP systolic 119–206; BP diastolic 40–100
[2019-03-26 04:03] LABS: Albumin 2.4 g/dL (3.4-5.0); Calcium 7.5 mg/dL (8.5-10.1); Magnesium 2.1 mg/dL (1.6-2.6); Potassium 4.3 mmol/L (3.5-5.1)
[2019-03-26 04:07] LABS: BUN/Creatinine Ratio 15.9; Bilirubin, Total 0.5 mg/dL (0.2-1.0); Phosphorus 5.5 mg/dL (2.5-4.90); Total Protein 5.7 g/dL (6.4-8.2)
--- NOTE | 2019-03-26 04:26 | NUR ---
Cares Pt given complete chg bath and partial linen change performed. pt tolerated well. Oral care done and repositioned with bony prominences offloaded.
[2019-03-26] MEDS: SODIUM CHL 0.9% IV SCH ×2 (05:39→09:48)
[2019-03-26] MEDS: NICARDIPINE IV SCH ×2 (05:39→09:48)
[2019-03-26] MEDS: ALBUTEROL SULF 2.5 MG/0.5ML(0.5%) NEB SOLN NEB SCH ×3 (05:46→18:44)
[2019-03-26] MEDS: IPRATROPIUM BROM 0.5 MG/2.5ML INH SOL NEB SCH ×3 (05:46→18:44)
[2019-03-26] MEDS: ACCU-CHEK COMFORT CURVE STRIP VI SCH ×4 (05:58→17:52)
[2019-03-26] MEDS: InsuLIN REG 1unit/0.01ml Soln (100units/ml) SC SCH ×4 (05:58→17:53)
[2019-03-26] MEDS: methylPREDNISolone SOD SUCC 40 MG/ML VL IV SCH ×4 (05:58→18:13)
[2019-03-26] MEDS ORDERED: SODIUM CHL 0.9% 1000 ML BAG XX ONE (07:00)
--- NOTE | 2019-03-26 07:20 | NUR ---
REPORT REPORT RECEIVED FROM FATOU RNED. PT RESTING QUIETLY IN BED, ON THE VENTILATOR WITH VSS EXCEPT FOR BP OF 177/62. ON CARDENE DRIP AT 8 MG/HR. DUE FOR HDX THIS AM.
--- NOTE | 2019-03-26 07:30 | NUR ---
ASSESSMENT PT LAYING IN BED WITH EYES OPEN. NO TRACKING NOTED AND DOES NOT TURN EYES TO NAME OR FOLLOW ANY COMMANDS. NO SPONTANEOUS MOVEMENT NOTED. ON THE VENTILATOR WITH 7.5 ETT / 24 AT THE LIP, TV 450, AC 12, 30% AND PEEP OF 5. LUNGS CLEAR THROUGHOUT. MODERATE AMOUNT OF CLEAR FLUID WITH ORAL SUCTIONING. TELE SR [address] ELEVATION IN LEAD V. PALPABLE PULSES TO ALL EXTREMITIES WITH NON PITTING EDEMA NOTED TO BOTH THIGHS. SCD TO LLE AND BP CUFF TO RLE. ABD SOFT WITH + BOWEL SOUNDS. PT WITH LAST BM WAS 5/7. PT ANURIC SHE IS ON HDX. AV FISTULA TO THE LUE WITH + BRUIT AND THRILL. PT TURNED TO HER BACK. ANIYA HDX RN, AT THE BEDSIDE READY TO ACCESS PT'S AV FISTULA AND START HDX.
--- NOTE | 2019-03-26 07:30 | NUR ---
PT TEACHING PT UNABLE TO BENEFIT FROM PT TEACHING DUE TO LACK OF RESPONSIVENESS . Addendum: 03/26/19 at 0838 by Zeynep Hampton RN Amended: Links added.
--- NOTE | 2019-03-26 07:53 | NUR ---
MD VISIT PT SEEN AND EXAMINED BY DR SCOTT. UPDATED ON CURRENT STATUS.
--- NOTE | 2019-03-26 08:53 | NUR ---
BP OF 182/64. SPOKE WITH ANETA KWAN RN, TO SEE IF HE WANTS ME TO TITRATE UP ON THE NICARDIPINE DRIP. HE WANTS TO CONTINUE TO MONITOR THE DRIP AT THE CURRENT RATE AND MONITOR THE BP. Addendum: 03/26/19 at 0855 by Zeynep Hampton RN THIS NOTE SHOULD BE FOR 0816
[2019-03-26] MEDS: MIDAZOLAM DRIP 50 mg/50mL 50 ML IV SCH (09:00)
[2019-03-26] MEDS: fentaNYL Drip 2500mCg/250mlNS 250 ML IV SCH (09:42)
--- NOTE | 2019-03-26 09:57 | NUR ---
BP OF 153/76 WITH NEARLY 2800ML REMOVED. WILL REPOSITION WHEN HDX COMPLETED AT 1030.
[2019-03-26] MEDS: FAMOTIDINE (10MG/ML) 2ML VL IV SCH (10:34)
[2019-03-26] MEDS: ENOXAPARIN SOD 30 MG/0.3 ML SYRINGE SC SCH (11:00)
[2019-03-26] MEDS: BUDESONIDE (INHALATION) 0.5 MG/2 ML NEB NEB SCH ×2 (11:51→22:49)
[2019-03-26] MEDS: amLODIPine BESYLATE 5 MG TAB NG SCH (12:30)
--- NOTE | 2019-03-26 14:37 | NUR ---
Nutrition Follow-up Notes Wt.:45.7 kg Pt remains intubated, sedated, no immediate family member at bedside except for RN during rounds earlier. Pt's currently NPO with TPN @ 57 ml/hr providing 948 kcal, 60 gms pro, 708 NPCs. per RN is is now on PPN not TPN as her central line came out. Pt with inadequate PN support d/t mod initiation rate delivery of concentrated formula aeb current EN infusion meets 65-75% of est caloric needs however meets 101-120% of est protein needs. Est. Needs: 1250 kcal to 1450 kcal (30-35 kcal/kgBW), 50 gms to 62 gms pro (1.2-1.5 gms/kgBW d/t ESRD on HD). Will continue to monitor pertinent labs and reassess nutrient need prn Labs: BUN 99 H, CREAT 6.23 H, ALB 2.4 L, CA 7.5 L, PHOS 5.5 H, GLU 149 H Skin: Js scale 15, mod risk, pt's left lower leg bruise per paperhanger and painter. GI: Pt had 2x BM on 03/17 per paperhanger and painter. PES: Increased nutrient needs r/t acute/chronic medical condition aeb 91% IBW, BMI 18.5 kg/m2, decreased muscle mass, intubated, sedated, ERSD on HD, NPO. Altered nutrition related lab values r/t current/chronic medical condition aeb hyperglycemia, hypochloremia, elev. renal labs,AST, hypocalcemia and mild hypoalbuminemia Will continue to monitor NPO status, PN tolerance, skin status, pertinent labs and weight trend. F/u in 2 to 3 days. Rec.: 1.) If still NPO, continue PN support that meets at least 75% of est caloric needs. 2.) Advance gradually to oral diet or consider EN support with formula choice of Nephro Carb Steady @ 35 ml/hr goal rate as tolerated, if medically appropriate. 3.) Refer to RD for further nutrition education and weight monitoring upon discharged. 4.) Continue current plan of care.
--- NOTE | 2019-03-26 16:00 | NUR ---
FAMILY SISTER,GAGAN, AT [facility] BEDSIDE. UPDATED HER ON THE PT'S CONDITION AND THAT DR RAMIREZ WOULD LIKE TO HAVE A FAMILY MEETING. SHE WILL TALK WITH OTHER FAMILY MEMBERS,
--- NOTE | 2019-03-26 17:00 | NUR ---
RECEIVED A CALL BACK FROM PT'S SISTER, GAGAN. SHE HAS SET UP A FAMILY MEETING FOR SUNDAY AT [address] RAMIREZ.
[2019-03-26] MEDS: LABETALOL HCL 5 MG/ML ML 20ML VIAL IV PRN ×2 (17:52→23:37)
--- NOTE | 2019-03-26 18:00 | NUR ---
RECEIVED A PHONE CALL BACK FROM DR RAMIREZ. MADE HIM AWARE OF THE FAMILY MEETING FOR 1200 ON SUNDAY.
--- NOTE | 2019-03-26 19:30 | NUR ---
REPORT REPORT GIVEN TO FATOU PENA RN.
[2019-03-26] MEDS ORDERED: PPN PER PHARMACY IV NR ×9 (20:00)
[2019-03-26] MEDS: METOPROLOL TARTRATE 50 MG TAB NG SCH (21:35)
[2019-03-26] MEDS: MORPHINE SULF INJ 2 MG/ML SYRINGE 1ML IV PRN (23:38)
[2019-03-27] VITALS (55 sets, daily range): BP systolic 145–202; BP diastolic 45–77
[2019-03-27] MEDS: methylPREDNISolone SOD SUCC 40 MG/ML VL IV SCH ×5 (00:22→23:18)
[2019-03-27] MEDS: InsuLIN REG 1unit/0.01ml Soln (100units/ml) SC SCH ×4 (00:36→18:02)
[2019-03-27] MEDS: LABETALOL HCL 5 MG/ML ML 20ML VIAL IV PRN ×4 (02:27→22:13)
[2019-03-27] MEDS: MORPHINE SULF INJ 2 MG/ML SYRINGE 1ML IV PRN ×2 (02:29→20:16)
[2019-03-27 04:21] LABS: Potassium 4.1 mmol/L (3.5-5.1)
[2019-03-27 04:29] LABS: Albumin 2.4 g/dL (3.4-5.0); Bilirubin, Total 0.4 mg/dL (0.2-1.0); Calcium 7.6 mg/dL (8.5-10.1); Magnesium 2.2 mg/dL (1.6-2.6); Phosphorus 5.5 mg/dL (2.5-4.90); Pre Albumin 43.1 mg/dL (20.0-40.0); Total Protein 5.5 g/dL (6.4-8.2)
[2019-03-27] MEDS: ALBUTEROL SULF 2.5 MG/0.5ML(0.5%) NEB SOLN NEB SCH ×3 (05:34→18:43)
[2019-03-27] MEDS: IPRATROPIUM BROM 0.5 MG/2.5ML INH SOL NEB SCH ×3 (05:34→18:43)
[2019-03-27] MEDS: BUDESONIDE (INHALATION) 0.5 MG/2 ML NEB NEB SCH ×2 (05:36→22:50)
[2019-03-27] MEDS: ACCU-CHEK COMFORT CURVE STRIP VI SCH ×4 (06:00→18:01)
--- NOTE | 2019-03-27 07:10 | NUR ---
REPORT RECEIVED FROM GRINDER NURSE. PATIENT RESTING IN BED AT THIS TIME, INTUBATED. RESPIRATIONS EVEN AND UNLABORED. NO SIGNS OF ACUTE DISTRESS NOTED. BED IN LOW POSITION. WILL CONTINUE TO MONITOR.
--- NOTE | 2019-03-27 07:47 | NUR ---
DR SCOTT AT BEDSIDE TO ASSESS PATIENT AND DISCUSS PLAN OF CARE. NO NEW ORDERS.
[2019-03-27] MEDS: MIDAZOLAM DRIP 50 mg/50mL 50 ML IV SCH (09:00)
--- NOTE | 2019-03-27 09:25 | NUR ---
PHYSICAL THERAPY AT BEDSIDE TO DO ROM WITH PATIENT.
[2019-03-27] MEDS: ENOXAPARIN SOD 30 MG/0.3 ML SYRINGE SC SCH (09:39)
[2019-03-27] MEDS: FAMOTIDINE (10MG/ML) 2ML VL IV SCH (09:40)
[2019-03-27] MEDS: amLODIPine BESYLATE 5 MG TAB NG SCH (09:40)
[2019-03-27] MEDS: METOPROLOL TARTRATE 50 MG TAB NG SCH ×2 (09:40→22:14)
[2019-03-27] MEDS: fentaNYL Drip 2500mCg/250mlNS 250 ML IV SCH (09:42)
--- NOTE | 2019-03-27 13:18 | NUR ---
PAGED DR RAMIREZ FOR PATIENTS PERSISTENT ELEVATED BLOOD PRESSURE WITHOUT RELIEF FROM CURRENT MEDICATIONS. AWAITING CALL BACK.
--- NOTE | 2019-03-27 13:27 | NUR ---
SPOKE TO DR RAMIREZ ABOUT PATIENTS BLOOD PRESSURE. PER HYDRALAZINE 20MG IVP Q4PRN FOR SBP>150. ALL ORDERS NOTED IN CHART.
[2019-03-27] MEDS: hydrALAZINE HCL 20 MG/ML VL IV PRN ×3 (13:51→20:16)
--- NOTE | 2019-03-27 14:35 | NUR ---
DR CEJA AT BEDSIDE TO ASSESS PATIENT AND DISCUSS PLAN OF CARE. PER MD PATIENT TO HAVE DIALYSIS TOMORROW. ALL ORDERS NOTED IN CHART.
--- NOTE | 2019-03-27 17:51 | NUR ---
DR RAMIREZ AT BEDSIDE TO ASSESS PATIENT AND DISCUSS PLAN OF CARE. NO NEW ORDERS AT THIS TIME.
[2019-03-27] MEDS ORDERED: PPN PER PHARMACY IV NR ×7 (20:00)
[2019-03-28] VITALS (74 sets, daily range): BP systolic 75–214; BP diastolic 44–97
[2019-03-28] MEDS: LABETALOL HCL 5 MG/ML ML 20ML VIAL IV PRN ×2 (01:20→04:40)
[2019-03-28] MEDS: hydrALAZINE HCL 20 MG/ML VL IV PRN ×4 (01:21→22:27)
[2019-03-28] MEDS: MIDAZOLAM DRIP 50 mg/50mL 50 ML IV SCH (04:33)
[2019-03-28 04:40] LABS: Albumin 2.6 g/dL (3.4-5.0); Calcium 7.7 mg/dL (8.5-10.1); Magnesium 2.2 mg/dL (1.6-2.6); Potassium 4.7 mmol/L (3.5-5.1)
[2019-03-28] MEDS: MORPHINE SULF INJ 2 MG/ML SYRINGE 1ML IV PRN (04:42)
[2019-03-28 04:44] LABS: BUN/Creatinine Ratio 18.1; Bilirubin, Total 0.5 mg/dL (0.2-1.0); Phosphorus 6.4 mg/dL (2.5-4.90)
[2019-03-28] MEDS: ACCU-CHEK COMFORT CURVE STRIP VI SCH ×4 (06:00→17:39)
[2019-03-28] MEDS: methylPREDNISolone SOD SUCC 40 MG/ML VL IV SCH ×3 (06:00→17:39)
[2019-03-28] MEDS: InsuLIN REG 1unit/0.01ml Soln (100units/ml) SC SCH ×4 (06:00→17:41)
[2019-03-28] MEDS: ALBUTEROL SULF 2.5 MG/0.5ML(0.5%) NEB SOLN NEB SCH ×3 (06:31→18:16)
[2019-03-28] MEDS: IPRATROPIUM BROM 0.5 MG/2.5ML INH SOL NEB SCH ×3 (06:32→18:16)
[2019-03-28] MEDS: BUDESONIDE (INHALATION) 0.5 MG/2 ML NEB NEB SCH ×2 (06:32→18:16)
[2019-03-28] MEDS ORDERED: SODIUM CHL 0.9% 1000 ML BAG XX ONE (07:00)
--- NOTE | 2019-03-28 07:00 | NUR ---
REPORT RECEIVED FROM SALES DEPARTMENT MANAGER NURSE. PATIENT RESTING IN BED INTUBATED. RESPIRATIONS EVEN AND UNLABORED. NO SIGNS OF ACUTE DISTRESS NOTED. BED IN LOW POSITION. WILL CONTINUE TO MONITOR.
--- NOTE | 2019-03-28 08:00 | NUR ---
ASSESSMENT COMPLETED. UPON ASSESSING PATIENT FISTULA TO LEFT FOREARM DOES NOT HAVE THRILL OR BRUIT NOTED. WILL INFORM MD.
--- NOTE | 2019-03-28 09:27 | NUR ---
DIALYSIS NURSE AT BEDSIDE TO START DIALYSIS. INFORMED OF FISTULA ASSESSMENT. DIALYSIS NURSE UNABLE TO OBTAIN PULSE TO FISTULA AND UPON CANNULATING SMALL AMOUNT OF BLOOD FLASH BUT CLOTS WERE NOTED WHEN NEEDLE WAS REMOVED. DIALYSIS NURSE CALLED DR CEJA TO INFORM.
[2019-03-28] MEDS: fentaNYL Drip 2500mCg/250mlNS 250 ML IV SCH (09:42)
[2019-03-28] MEDS: ENOXAPARIN SOD 30 MG/0.3 ML SYRINGE SC SCH (10:00)
--- NOTE | 2019-03-28 10:00 | NUR ---
DR CEJA AT BEDSIDE TO ASSESS PATIENT AND DISCUSS PLAN OF CARE. MD AWARE OF FISTULA NOT WORKING. PER MD DISCUSS WITH FAMILY AFTER FAMILY MEETING IF THEY WOULD LIKE A CATHETER PLACED FOR DIALYSIS.
--- NOTE | 2019-03-28 10:03 | NUR ---
PHYSICAL THERAPY AT BEDSIDE FOR ROM WITH PATIENT.
[2019-03-28] MEDS: FAMOTIDINE (10MG/ML) 2ML VL IV SCH (10:39)
[2019-03-28] MEDS: METOPROLOL TARTRATE 50 MG TAB NG SCH ×2 (10:40→22:04)
[2019-03-28] MEDS: amLODIPine BESYLATE 5 MG TAB NG SCH (10:40)
--- NOTE | 2019-03-28 11:00 | NUR ---
COBAN PRESSURE DRESSING REMOVED COBAN PRESSURE DRESSING THAT WAS APPLIED BY DIALYSIS NURSE REMOVED FROM FISTULA SITE WAS REMOVED.
--- NOTE | 2019-03-28 12:00 | NUR ---
DR RAMIREZ DISCUSSED PLAN OF CARE WITH ENTIRE FAMILY. FAMILY DISCUSSING THEIR ITEMS AT THIS TIME.
--- NOTE | 2019-03-28 12:08 | NUR ---
Nutrition Follow-up Notes Wt.:45.0 kg today. Pt remains intubated, sedated, no immediate family member at bedside during rounds earlier. Pt had dialysis (03/24/19), currently NPO with TPN @ 54 ml/hr providing 848 kcal, 60 gms pro, 608 NPCs and 24% Fat. Pt with inadequate PN support d/t low initiation rate delivery of concentrated formula aeb current EN infusion meets 58 to 68% of est caloric needs however meets 96% to 120% of est protein needs. Est. Needs: 1250 kcal to 1450 kcal (30-35 kcal/kgBW), 50 gms to 62 gms pro (1.2-1.5 gms/kgBW d/t ESRD on HD). Will continue to monitor pertinent labs and reassess nutrient need prn Labs:Gluc 153 H, Na 133 L, Cl 94 L, BUN 114 H, Cr 6.30 H, Ca 7.7 L, Mg 6.4 H, Tpro 6.0 L, Alb 2.6 L, AST 41 H, ALT 107 H, ALP 170 H Skin: Js scale 12, high risk, pt's left lower leg bruise per harp maker. GI: Pt had 1 BM this morning per harp maker. PES: Increased nutrient needs r/t acute/chronic medical condition aeb 91% IBW, BMI 18.5 kg/m2, decreased muscle mass, intubated, sedated, ERSD on HD, NPO. Altered nutrition related lab values r/t current/chronic medical condition aeb hyperglycemia, hypochloremia, elev. renal labs,AST, hypocalcemia and mild hypoalbuminemia Will continue to monitor NPO status, PN tolerance, skin status, pertinent labs and weight trend. F/u in 2 to 3 days. Rec.: 1.) If still NPO with PN support, consider gradual increase on calories to meet at least 75% of est caloric needs. 2.) Advance gradually to oral diet or consider EN support with formula choice of Nephro Carb Steady @ 35 ml/hr goal rate as tolerated, if medically appropriate. 3.) Refer to RD for further nutrition education and weight monitoring upon discharged. 4.) Continue current plan of care.
--- NOTE | 2019-03-28 13:11 | NUR ---
PATIENTS SON JOVANY GARDINER SIGNED DNR FORM WITH ENTIRE FAMILY CONSENTING. DR HORTON AT UPDATED.
--- NOTE | 2019-03-28 15:29 | NUR ---
DR SCOTT AT BEDSIDE TO ASSESS PATIENT AND DISCUSS PLAN OF CARE.
[2019-03-28] MEDS ORDERED: PPN PER PHARMACY IV NR ×8 (20:00)
[2019-03-29] VITALS (88 sets, daily range): BP systolic 138–205; BP diastolic 43–74
--- NOTE | 2019-03-29 01:32 | NUR ---
ROUNDED: COVERING ASSIGNED RN FOR LUNCH BREAK. INTUBATED. EYES OPEN. SBP ELEVATED, BUT PATIENT'S NORMAL. VSS OTHERWISE STABLE. WILL ENDORSE CARE BACK TO ASSIGNED RN
[2019-03-29] MEDS: LABETALOL HCL 5 MG/ML ML 20ML VIAL IV PRN ×2 (02:39→11:55)
[2019-03-29 04:35] LABS: Albumin 2.7 g/dL (3.4-5.0); BUN/Creatinine Ratio 19.5; Bilirubin, Total 0.5 mg/dL (0.2-1.0); Calcium 7.7 mg/dL (8.5-10.1); Phosphorus 7.6 mg/dL (2.5-4.90); Total Protein 6.1 g/dL (6.4-8.2)
[2019-03-29 04:40] LABS: Potassium 5.6 mmol/L (3.5-5.1)
[2019-03-29] MEDS: ACCU-CHEK COMFORT CURVE STRIP VI SCH ×4 (05:57→18:00)
[2019-03-29] MEDS: InsuLIN REG 1unit/0.01ml Soln (100units/ml) SC SCH ×4 (05:57→18:48)
[2019-03-29] MEDS: methylPREDNISolone SOD SUCC 40 MG/ML VL IV SCH ×4 (06:00→18:47)
[2019-03-29] MEDS: BUDESONIDE (INHALATION) 0.5 MG/2 ML NEB NEB SCH ×2 (06:10→22:13)
[2019-03-29] MEDS ORDERED: CALCIUM GLUC 4.65 MEQ/10ML 10 ML IV ONE (06:10)
[2019-03-29] MEDS: IPRATROPIUM BROM 0.5 MG/2.5ML INH SOL NEB SCH ×5 (06:10→22:13)
[2019-03-29] MEDS: ALBUTEROL SULF 2.5 MG/0.5ML(0.5%) NEB SOLN NEB SCH ×4 (06:10→22:12)
[2019-03-29] MEDS ORDERED: SODIUM ZIRCONIUM CYCL 10 GM PAK ONE (06:11)
[2019-03-29] MEDS ORDERED: InsuLIN REG 1unit/0.01ml Soln (100units/ml) ONE (06:11)
[2019-03-29] MEDS ORDERED: DEXTROSE 50% SYRINGE 50 ML IV ONE (06:12)
[2019-03-29] MEDS ORDERED: SODIUM BICARBONATE 8.4% INJ 50ML SYRINGE ONE (06:12)
--- NOTE | 2019-03-29 07:30 | NUR ---
REPORT REPORT RECEIVED FROM FATOU RNTOM. PT RESTING IN BED WITH EYES OPEN,NO TRACKING NOTE, OR RESPONSE TO VERBAL OR PAINFUL STIMULI. REMAINS ON THE VENTILATOR. CONTINUE TO MONITOR.
--- NOTE | 2019-03-29 07:50 | NUR ---
ASSESSMENT PT LAYING IN BED WITH EYES OPEN BUT DOES NOT TRACK, FOLLOW ANY COMMANDS OR MOVE HER EXTREMITIES. ON THE VENTILATOR WITH 7.5 ETT/24 AT THE LIP, TV 450, 30% FIO2 AND PEEP OF 5. LUNGS COARSE ON INSPIRATION AND WITH EXP SIGH NOTED. O2 SAT OF 98%. TELE SR WITH ELEVATED ST IN LEAD V. PALPABLE PULSES TO ALL EXTREMITIES. SCD TO LEFT CALF AND BP CUFF TO RIGHT CALF. PITTING EDEMA NOTED TO BOTH UPPER EXTREMITIES. OGT IN PLACE WITH NO RESIDUAL NOTED. ABD SOFT WITH + BOWEL SOUNDS. PT IS ANURIC. FISTULA TO LEFT ARM WITH NO BRUIT OR THRILL NOTED. MD ALREADY AWARE. TURNED FOR COMFORT TO HER LEFT SIDE. SMALL HEALED PINK SPOT ON SACRUM. OPTIFOAM DRESSING IN PLACE TO SACRUM. RAILS UP X4 AND BED IN LOW POSITION. CONTINUE TO MONITOR.
[2019-03-29] MEDS ORDERED: ALBUTEROL SULF 2.5 MG/0.5ML(0.5%) NEB SOLN NEB ONE (08:15)
[2019-03-29] MEDS: hydrALAZINE HCL 20 MG/ML VL IV PRN (08:20)
--- NOTE | 2019-03-29 08:20 | NUR ---
HIGH BP BP OF 172/69. MEDICATED WITH HYDRALAZINE 20MG IV PER PRN ORDER. CONTINUE TO MONITOR.
[2019-03-29] MEDS: MIDAZOLAM DRIP 50 mg/50mL 50 ML IV SCH (09:00)
--- NOTE | 2019-03-29 09:50 | NUR ---
MD VISIT PT SEEN AND EXAMINED BY DR ROBERSON. UPDATED HIM ONT HE PT'S CURRENT CONDITION, LABS AND NO CXR SINCE . MADE AWARE OF DNR STATUS AND FAMILY PLAN FOR TERMINAL WEAN ON SUNDAY. Addendum: 03/29/19 at 1523 by Zeynep Hampton RN CLARIFICATION NO CXR DONE SINCE 03/25/19
[2019-03-29] MEDS: FAMOTIDINE (10MG/ML) 2ML VL IV SCH (10:07)
[2019-03-29] MEDS: amLODIPine BESYLATE 5 MG TAB NG SCH (10:08)
[2019-03-29 13:56] LABS: BUN/Creatinine Ratio 19.2; Calcium 7.5 mg/dL (8.5-10.1); Potassium 5.3 mmol/L (3.5-5.1)
[2019-03-29] MEDS ORDERED: SODIUM ZIRCONIUM CYCL 10 GM PAK PO SCH (14:00)
[2019-03-29] MEDS: hydrALAZINE HCL 25 MG TAB PO SCH ×3 (14:01→22:00)
--- NOTE | 2019-03-29 14:17 | NUR ---
CRITICAL LAB NOTIFIED BY LAB THAT BUN 153 AND CREATININE OF 7.96 AND K OF 5.3. WILL NOTIFY DR GENTILE.
--- NOTE | 2019-03-29 14:43 | NUR ---
COVERING FOR PRETTY VENEGAS WHO IS ON LUNCH BREAK. PAGED DR GENTILE FOR POTASSIUM 5.3 AND TO VERIFY IF LOKELMA ORDERED IS SUFFICIENT ENOUGH.
[2019-03-29] MEDS ORDERED: InsuLIN REG 1unit/0.01ml Soln (100units/ml) IV ONE (15:30)
[2019-03-29] MEDS ORDERED: DEXTROSE (50%) 50ML SYRG IV ONE (15:30)
--- NOTE | 2019-03-29 16:32 | NUR ---
PAGING DR GENTILE NO RESPONSE FROM DR GENTILE . RE-PAGING TO NOTIFY OF BUN 153/ CREATININE 7.96 AND K 5.3. PT NO LONGER ON HDX PT DNR AND SCHEDULED FOR TERMINAL WEAN ON SUNDAY. ON [facility] NOT SURE IF HE WANTS ANYTHING ADDITIONAL.
--- NOTE | 2019-03-29 17:01 | NUR ---
SPOKE WITH DR GENTILE BY PHONE AND PT TO RECEIVE ALBUTEROL 2.5MG TREATMENTS EVERY 4 HOURS AND LOKELMO ORDERED TO CONTROL POTASSIUM LEVEL.
--- NOTE | 2019-03-29 19:12 | NUR ---
REPORT REPORT GIVEN TO TOM LAINEZ RN.
[2019-03-29] MEDS ORDERED: PPN PER PHARMACY IV NR ×9 (20:00)
[2019-03-29] MEDS: SODIUM ZIRCONIUM CYCL 10 GM PAK PO SCH (22:00)
[2019-03-30] VITALS (64 sets, daily range): BP systolic 145–189; BP diastolic 40–78
[2019-03-30] MEDS ORDERED: methylPREDNISolone SOD SUCC 125 MG/2 ML VL ONE (00:18)
[2019-03-30] MEDS: methylPREDNISolone SOD SUCC 40 MG/ML VL IV SCH ×5 (00:28→23:53)
[2019-03-30] MEDS: IPRATROPIUM BROM 0.5 MG/2.5ML INH SOL NEB SCH ×6 (02:09→22:58)
[2019-03-30] MEDS: ALBUTEROL SULF 2.5 MG/0.5ML(0.5%) NEB SOLN NEB SCH ×6 (02:09→22:58)
[2019-03-30] MEDS: hydrALAZINE HCL 25 MG TAB PO SCH ×6 (02:25→21:31)
[2019-03-30] MEDS: SODIUM ZIRCONIUM CYCL 10 GM PAK PO SCH ×3 (06:00→21:32)
[2019-03-30] MEDS: ACCU-CHEK COMFORT CURVE STRIP VI SCH ×5 (06:00→23:53)
[2019-03-30] MEDS: InsuLIN REG 1unit/0.01ml Soln (100units/ml) SC SCH ×5 (06:00→23:53)
[2019-03-30] MEDS: BUDESONIDE (INHALATION) 0.5 MG/2 ML NEB NEB SCH ×2 (06:04→22:58)
[2019-03-30 06:26] LABS: Albumin 2.4 g/dL (3.4-5.0); Calcium 7.2 mg/dL (8.5-10.1); Potassium 5.2 mmol/L (3.5-5.1)
[2019-03-30 06:29] LABS: Bilirubin, Total 0.5 mg/dL (0.2-1.0); Phosphorus 8.6 mg/dL (2.5-4.90); Total Protein 5.6 g/dL (6.4-8.2)
--- NOTE | 2019-03-30 07:00 | NUR ---
REPORT RECEIVED FROM UMBRELLA TIPPER HAND NURSE. PATIENT RESTING IN BED INTUBATED, OPENS EYES TO SOUND, BUT NOT RESPONDING APPROPRIATELY TO COMMANDS. RESPIRATIONS EVEN AND UNLABORED. NO SIGNS OF ACUTE DISTRESS NOTED. BED IN LOW POSITION. WILL CONTINUE TO MONITOR.
[2019-03-30 07:43] LABS: Basophils # (auto) 0 uL; Basophils % (auto) 0.1 % (0.0-2.0); Eosinophils # (auto) 0 uL; Eosinophils % (auto) 0.1 % (0.0-7.0); Hemoglobin 11.9 g/dL (12.2-16.2); Lymphocytes # (auto) 0.2 uL; Lymphocytes % (auto) 0.9 % (10.0-50.0); Mean Corpuscular Hemoglobin 33.2 pg (28.0-32.0); Mean Corpuscular Volume 100.6 fL (80.0-100.0); Monocytes # (auto) 0.3 uL; Monocytes % (auto) 1.3 % (0.0-12.0); Neutrophils % (auto) 97.6 % (37.0-80.0); Nucleated Red Blood Cells % 0.1 %; Platelet Count (auto) 251 10^3/uL (140-450); Red Blood Cells 3.58 10^6/uL (4.0-5.20); Red Cell Distribution Width 16.6 % (11.8-14.3); White Blood Cell 22.5 10^3/uL (4.4-10.8)
[2019-03-30] MEDS: MIDAZOLAM DRIP 50 mg/50mL 50 ML IV SCH (09:00)
[2019-03-30 09:08] LABS: BUN/Creatinine Ratio 22.9
[2019-03-30] MEDS: FAMOTIDINE (10MG/ML) 2ML VL IV SCH (10:25)
[2019-03-30] MEDS: amLODIPine BESYLATE 5 MG TAB NG SCH (10:25)
--- NOTE | 2019-03-30 10:41 | NUR ---
DR WEAVER AT BEDSIDE TO ASSESS PATIENT AND DISCUSS PLAN OF CARE. ALL ORDERS NOTED IN CHART.
[2019-03-30] MEDS ORDERED: CALCIUM GLUC 4.65meq/50ml D5AE 50 ML IV ONE (11:00)
[2019-03-30] MEDS ORDERED: DEXTROSE (50%) 50ML SYRG IV ONE (11:00)
[2019-03-30] MEDS ORDERED: SODIUM BICARBONATE 8.4 % INJ 50ML VIAL IV ONE (11:00)
[2019-03-30] MEDS ORDERED: InsuLIN REG 1unit/0.01ml Soln (100units/ml) SC ONE (11:00)
--- NOTE | 2019-03-30 11:38 | NUR ---
DR GENTILE AT BEDSIDE TO ASSESS PATIENT AND DISCUSS PLAN OF CARE. NO NEW ORDERS AT THIS TIME.
--- NOTE | 2019-03-30 12:32 | NUR ---
Nutrition Follow-up Notes Wt.: 48.5 kg today. Pt remains intubated, sedated, had dialysis (03/28/19), currently NPO with TPN @ 54 ml/hr providing 848 kcal, 60 gms pro, 608 NPCs and 24% Fat. Pt with inadequate PN support d/t low initiation rate delivery of concentrated formula aeb current EN infusion meets 58 to 68% of est caloric needs however meets 96% to 120% of est protein needs. Noted pt's to receive tonight another TPN @ 50 ml/hr providing 808 kcal, 50 gms pro, 608 NPCs and 25% Fat. Est. Needs: 1250 kcal to 1450 kcal (30-35 kcal/kgBW), 50 gms to 62 gms pro (1.2-1.5 gms/kgBW d/t ESRD on HD). Will continue to monitor pertinent labs and reassess nutrient need prn Labs: Gluc 143 H, Na 125 L, CK 5.2 H, Cl 83 L, CO2 18 L, BUN 89 H, Cr 8.27 H, Ca 7.2 L, Tpro 5.6 L, Alb 2.4 L, ALT 61 H, ALP 145 H Skin: Js scale 14, mod risk, pt's left lower leg bruise per exterior interior specialist. GI: Pt had 1 BM 03/28/19 per exterior interior specialist. PES: Increased nutrient needs r/t acute/chronic medical condition aeb 91% IBW, BMI 18.5 kg/m2, decreased muscle mass, intubated, sedated, ERSD on HD, NPO. Altered nutrition related lab values r/t current/chronic medical condition aeb hyperglycemia, hypochloremia, elev. renal labs,AST, hypocalcemia and mild hypoalbuminemia Will continue to monitor NPO status, PN tolerance, skin status, pertinent labs and weight trend. F/u in 2 to 3 days. Rec.: 1.) If still NPO with PN support, consider gradual increase on calories to meet at least 75% of est caloric needs. 2.) Advance gradually to oral diet or consider EN support with formula choice of Nephro Carb Steady @ 35 ml/hr goal rate as tolerated, if medically appropriate. 3.) Refer to RD for further nutrition education and weight monitoring upon discharged. 4.) Continue current plan of care.
--- NOTE | 2019-03-30 19:30 | NUR ---
Opening Shift Note Assumed care of patient, Pt lying on bed with eyes open spontaneously, blink and stare but no tracking or eye contact, pupils brisk both eyes. Breathing on ET tube with AC mode, synchronized to ventilator, no sedative IV, No S/S of distress/SOB or pain. OG tube clamped, positive placement. Anuric, no F/C. Bed in low position, all alarms are audible, fall and safety precaution in place. No family at bedside at this time, will continue to monitor for changes Q1hr and PRN.
[2019-03-30] MEDS ORDERED: PPN PER PHARMACY IV NR ×9 (20:00)
--- NOTE | 2019-03-30 21:30 | NUR ---
Condition update Pt v/s and condition stable. Opened her eyes spontaneously, grimacing when turning, and resting after turned position. OG in place, residual of clear fluid and bile total 35ml, air 120ml. Hydralazine given as order. Continue care.
[2019-03-30] MEDS: LABETALOL HCL 5 MG/ML ML 20ML VIAL IV PRN (23:39)
[2019-03-31] VITALS (51 sets, daily range): BP systolic 135–186; BP diastolic 42–71
--- NOTE | 2019-03-31 | NUR ---
Condition update/ Hypertension SBP high 160-170's while resting, and after multiple measuring. Labetalol PRN given as order, SBP decreased to 150's. Others v/s and N/S stable. Continue monitoring.
--- NOTE | 2019-03-31 01:30 | NUR ---
Condition update/ hypertension SBP increased to 160's at rest, will administer Hydralazine schedule as order and monitor. Others v/s and N/S stable. Addendum: 03/31/19 at 0245 by Roxane Chew RN Breath sounds with wheezing and rhonchi, mouth care done, suction attempted x1, found a small amount of clear light red secretion, RT aware, will continue to monitor.
[2019-03-31] MEDS: hydrALAZINE HCL 25 MG TAB PO SCH ×3 (01:37→09:59)
--- NOTE | 2019-03-31 02:00 | NUR ---
Patient bathe/linen change Patient given complete bath with CHG wipes. Skin integrity assessed for any changes, skin intact but flaky, skin moisturizer applied. Band-aid at right upper chest peeled off, found a tiny puncture wound and an intact stitch, cleaned and covered back with band-aid. Complete linens changed. Patient repositioned to prevent pressure ulcer. Tolerated fairly, SBP high in the 170's with activities, will monitor BP after resting, breathing controlled with ventilator, synchronized and nonlabored.
[2019-03-31] MEDS: IPRATROPIUM BROM 0.5 MG/2.5ML INH SOL NEB SCH ×3 (02:34→10:19)
[2019-03-31] MEDS: ALBUTEROL SULF 2.5 MG/0.5ML(0.5%) NEB SOLN NEB SCH ×3 (02:34→10:19)
--- NOTE | 2019-03-31 02:52 | NUR ---
Condition update/ BP f/u After Hydralazine and inactivity BP decreased to 152/50mmHg. Continue care.
[2019-03-31 04:22] LABS: Basophils # (auto) 0 uL; Basophils % (auto) 0.1 % (0.0-2.0); Eosinophils # (auto) 0 uL; Hematocrit 33.9 % (36.0-46.0); Hemoglobin 11.4 g/dL (12.2-16.2); Lymphocytes # (auto) 0.2 uL; Lymphocytes % (auto) 0.9 % (10.0-50.0); Mean Corpuscular Hemoglobin 33.7 pg (28.0-32.0); Mean Corpuscular Hgb Conc. 33.6 g/dL (32.0-36.0); Mean Corpuscular Volume 100.1 fL (80.0-100.0); Monocytes # (auto) 0.4 uL; Monocytes % (auto) 1.6 % (0.0-12.0); Neutrophils # (auto) 21.4 uL; Neutrophils % (auto) 97.4 % (37.0-80.0); Platelet Count (auto) 285 10^3/uL (140-450); Red Blood Cells 3.38 10^6/uL (4.0-5.20); White Blood Cell 21.9 10^3/uL (4.4-10.8)
[2019-03-31 04:39] LABS: Albumin 2.3 g/dL (3.4-5.0); Calcium 7.1 mg/dL (8.5-10.1); Magnesium 2.3 mg/dL (1.6-2.6); Potassium 4.8 mmol/L (3.5-5.1)
[2019-03-31 04:52] LABS: Bilirubin, Total 0.4 mg/dL (0.2-1.0); Phosphorus 8.8 mg/dL (2.5-4.90); Total Protein 5.3 g/dL (6.4-8.2)
[2019-03-31 05:00] LABS: BUN/Creatinine Ratio 21.7
[2019-03-31] MEDS: SODIUM ZIRCONIUM CYCL 10 GM PAK PO SCH (05:41)
[2019-03-31] MEDS: InsuLIN REG 1unit/0.01ml Soln (100units/ml) SC SCH ×2 (05:41→12:06)
[2019-03-31] MEDS: ACCU-CHEK COMFORT CURVE STRIP VI SCH ×2 (05:41→12:06)
[2019-03-31] MEDS: methylPREDNISolone SOD SUCC 40 MG/ML VL IV SCH ×2 (05:42→12:13)
--- NOTE | 2019-03-31 05:55 | NUR ---
Summary N/S stable, pupils brisk both eyes, eyes opened spontaneously, no, eyes contact and tracking, no follow command. All extremities flaccid. No fever. No s/s of distress, breath sounds wheezing, positive cough reflex when stimulate. V/S; BP on the high side, SBP 150's, controlled with Hydralazine q4hr, given IV PRN Labetalol once, HR 53-72/min. Continue care and will endorsed care to day nurse.
[2019-03-31] MEDS: MIDAZOLAM DRIP 50 mg/50mL 50 ML IV SCH (09:00)
[2019-03-31] MEDS: FAMOTIDINE (10MG/ML) 2ML VL IV SCH (09:58)
[2019-03-31] MEDS: amLODIPine BESYLATE 5 MG TAB NG SCH (09:59)
[2019-03-31] MEDS: BUDESONIDE (INHALATION) 0.5 MG/2 ML NEB NEB SCH (10:19)
--- NOTE | 2019-03-31 10:30 | NUR ---
MD Dr. Garcia at bedside updated on patient condition with new orders, to input into system.
--- NOTE | 2019-03-31 11:15 | NUR ---
WOUND CARE Wound care nurse at bedside to assess patient for low Js score and intubated patient.
--- NOTE | 2019-03-31 11:16 | NUR ---
WOUND CARE NOTE: Wound care in to see patient for skin integrity monitoring due to intubation status and Low Js score. Patient continue resting in ICU bed in Rm. 103. Patient is still intubated, and mechanically ventilated. Patient appears to be in no pain using Goss [place] Faces Pain Scale. Her current Js score is 11. Patient is off sedation at this time, open eyes from time to time. Skin assessment done with the assistance of another nurse RN Vanita. Ecchymosis to patient's L lateral lower leg remain intact and fa ding. Sacral scar remain intact as well. Patient is favoring leaning to her Rt side and developed 1.5x1.5cm non-blanchable redness to Rt ear pinna (Stage 1 pressure injury). Skin is intact, clean and dry, left open to air. Staff is putting rolled blanket to stabilize her head. Photograph of mentioned skin issue are taken for reference. Her heels also noted with blanchable mild redness. Repositioned for comfort on her back redistributed pressure points with pillows and elevate BLE on pillows. RECOMMENDATION: Continuation of all wound care orders prescribed by MD, continue with skin/wound plan of care, continue monitoring by wound care while patient is mechanically ventilated. Addendum: 03/31/19 at 1230 by Teressa Nice RN Amended: Links added.
[2019-03-31] MEDS ORDERED: LORazepam 2MG/ML-1ML VIAL IV PRN (12:45)
[2019-03-31] MEDS ORDERED: ONDANSETRON HCL 4 MG/2 ML VIAL IV PRN (12:45)
--- NOTE | 2019-03-31 12:55 | NUR ---
RESPIRATORY Paged and spoke to Eloise RT regarding family is ready for terminal wean. Eloise states " Will be here shortly."
[2019-03-31] MEDS: MORPHINE SULF INJ 2 MG/ML SYRINGE 1ML IV PRN ×3 (13:12→21:23)
--- NOTE | 2019-03-31 13:15 | NUR ---
TERMINAL WEAN Patients family at bedside ready for terminal wean on patient, RT Eloise at bedside and extubated patient and placed on 0.5 liters of nasal cannula. Will continue to monitor patient closely.
--- NOTE | 2019-03-31 13:16 | NUR ---
Respiratory note: PT TERMINALLY EXTUBATED AT THIS TIME PER DR LEE ORDERS. THEO HARTLEY AT BEDSIDE. PT PLACED ON .5 LNC.
--- NOTE | 2019-03-31 17:55 | NUR ---
NURSE PRACTITIONER Ryan Weber NP in unit and gave new orders to downgrade to Medi-surg, this RN to input into system.
--- NOTE | 2019-03-31 18:00 | NUR ---
CHARGE NURSE Charge nurse Brock aware of downgrade and Brock will notify housekeeper/custodian/laundry worker of downgrade.
--- NOTE | 2019-03-31 19:30 | NUR ---
REPORT RECEIVED ASSUMED CARE.
[2019-03-31] MEDS ORDERED: PPN PER PHARMACY IV NR ×9 (20:00)
[2019-03-31] MEDS: hydrALAZINE HCL 20 MG/ML VL IV PRN (21:12)
[2019-04-01] VITALS (23 sets, daily range): BP systolic 104–164; BP diastolic 45–65
--- NOTE | 2019-04-01 05:32 | NUR ---
Patient bathe/linen change Patient given complete bath. Skin integrity assessed for any changes. Linens changed. Patient repositioned for comfort.
--- NOTE | 2019-04-01 07:30 | NUR ---
REPORT RECEIVED, ASSUMING CARE, PATIENT COMFORT MEASURES ONLY, AWAITING FOR MED-SURG BED ASSIGNMENT. ORIENTING [employer] RN.
--- NOTE | 2019-04-01 08:00 | NUR ---
ASSESSMENT COMPLETED, SEE INTERVENTIONS.
--- NOTE | 2019-04-01 09:57 | NUR ---
DR RAMIREZ AT BEDSIDE, SPOKE WITH FAMILY WHO IS ALSO AT BEDSIDE, OK TO USE LEVSIN MEDICATION ORDERED ON CODE STATUS FORM IN CHART FOR RESPIRATORY SECRETIONS.
--- NOTE | 2019-04-01 11:14 | NUR ---
PT Hold PT as per THEO herr during morning PT visit. Addendum: 04/01/19 at 1115 by BELA JARQUIN PTT Amended: Links added.
[2019-04-01] MEDS ORDERED: HYOSCYAMINE SULF 0.125 MG ODT TAB PO PRN (12:30)
--- NOTE | 2019-04-01 12:31 | NUR ---
REPORT GIVEN TO RUTHIE VENEGAS PATIENT WILL BE TRANSFERRED TO ROOM 234 MED SURG WHEN ROOM IS CLEAN, SISTER AWARE
--- NOTE | 2019-04-01 13:15 | NUR ---
REC'D FROM ICU INTO 234. PT OPENS EYES TO NAME CALLED BUT NO TRACKING OF MOVEMENT. RESP SOMEWHAT LABORED, MOIST. LUNGS WITH WHEEZES, RHONCHI THROUGHOUT. POS CORNEAL AND COUGH REFLEXES.
--- NOTE | 2019-04-01 13:15 | NUR ---
TRANSFERRED TO ROOM 234 WITH ALL BELONGINGS
[2019-04-01] MEDS: MORPHINE SULF INJ 2 MG/ML SYRINGE 1ML IV PRN (13:56)
--- NOTE | 2019-04-01 15:01 | NUR ---
Nutrition Follow-up Notes Wt.: 44.0 kg Pt`s terminally weaned off PN support, sleeping when rounded this am. pt is currently NPO with no new diet order Est. Needs: 1250 kcal to 1450 kcal (30-35 kcal/kgBW), 50 gms to 62 gms pro (1.2-1.5 gms/kgBW d/t ESRD on HD). Will continue to monitor pertinent labs and reassess nutrient need prn Labs: BUN 193 H, CREAT 8.9 H, GLU 128 , CA 7.1 L, ALB 2.3 L. Skin: Js scale 9, high risk, pt's left lower leg bruise per clinical documentation nurse. GI: Pt had 1 BM 03/28/19 constipated per clinical documentation nurse. PES: Increased nutrient needs r/t acute/chronic medical condition aeb 91% IBW, BMI 18.5 kg/m2, decreased muscle mass, intubated, sedated, ERSD on HD, NPO. Altered nutrition related lab values r/t current/chronic medical condition aeb hyperglycemia, hypochloremia, elev. renal labs,AST, hypocalcemia and mild hypoalbuminemia Will continue to monitor NPO status, skin status, pertinent labs and weight trend. F/u in 2 to 3 days. Rec.: 1.) Continue current plan of care.
--- NOTE | 2019-04-01 20:00 | NUR ---
Opening Shift Note: A&OxO; nonverbal. Spontaneously opens eyes. Currently on 2LO2 via NC; bedrest/Q2 turn; and pain 0/10 fishman armenta scale. Bed locked in lowest position, side rails up x2, call light within reach, and bed alarm on for patient safety. IV midline in right upper extremity IID inserted on 03/25/19. Fistula is present in left arm; scabbing/scar noted. Sutures present with bandaid in right upper chest/collarbone area. Optifoam changed on sacrum. +3 pitting edema present in bilateral hands. Patient was previously intubated on 03/17/19 and terminally extubated on 03/31/19. DNR status and downgrade from ICU on 03/31/19. Will continue to round and reposition Q2H. Addendum: 04/02/19 at 0119 by HALEY MARTELL RN ICU downgrade 04/01/19
[2019-04-02 03:18] VITALS: BP 141/71
[2019-04-02 05:00] VITALS: BP 154/67
[2019-04-02] MEDS: hydrALAZINE HCL 20 MG/ML VL IV PRN (06:45)
[2019-04-02 09:00] VITALS: BP 110/48
[2019-04-02] MEDS: MORPHINE SULF INJ 2 MG/ML SYRINGE 1ML IV PRN (10:45)
--- NOTE | 2019-04-02 11:00 | NUR ---
JOSY FROM [facility] [facility] HAS BEEN IN TWICE TO SEE FAMILY PER THEIR REQUEST TO MAKE ARRANGEMENTS FOR HOSPICE
--- NOTE | 2019-04-02 12:00 | NUR ---
[facility] HERE FOR EVALUATION FAMILY ALSO PRESENT
[2019-04-02 13:00] VITALS: BP 89/50
--- NOTE | 2019-04-02 16:00 | NUR ---
RESP SHALLOWER. CONT TO OPEN EYES TO NAME CALLED
--- NOTE | 2019-04-02 16:51 | NUR ---
DR. RAMIREZ HERE TO WRITE DISCHARGE SINCE [facility] WILL BE HERE AR 1830 FOR PICKUP FOR TRANSPORT TO [facility] FOR HOSPICE CARE.
[2019-04-02 17:00] VITALS: BP 119/58
--- NOTE | 2019-04-02 17:48 | NUR ---
[facility]SA SWAB DONE; MIDLINE DC FROM RT UPPER ARM. CATH INTACT, SITE CLEAN, 2X2 AND COBAN APPLIED. SISTER GAGAN AT BEDSIDE, UPDATED ON PLANNED CORE STRIPPER AT 1830.
--- NOTE | 2019-04-02 19:30 | NUR ---
Opening Shift Note: A&OxO; nonverbal. Spontaneously opens eyes. Currently on 2LO2 via NC; bedrest/Q2 turn; and pain 0/10 fishman armenta scale. Bed locked in lowest position, side rails up x2, call light within reach, and bed alarm on for patient safety. IV midline in right upper extremity IID inserted on 03/25/19. Fistula is present in left arm; scabbing/scar noted. Sutures present with bandaid in right upper chest/collarbone area. Optifoam on sacrum. +3 pitting edema present in bilateral hands. Patient was previously intubated on 03/17/19 and terminally extubated on 03/31/19. DNR status and downgrade from ICU on 03/31/19. Will continue to round and reposition Q2H. Pending transfer to [facility] for hospice via [facility].
--- NOTE | 2019-04-02 19:50 | NUR ---
Discharge wound photos taken.
[2019-04-02 20:06] VITALS: BP 143/56
--- NOTE | 2019-04-02 20:10 | NUR ---
Report called to THEO Conti at [facility].
--- NOTE | 2019-04-02 20:20 | NUR ---
Discharge Note: Transportation arrival for transfer to [facility] for hospice care. Report given to transportation.
--- NOTE | 2019-04-02 20:37 | NUR ---
Next of kin Karen notified of transfer to [facility] for hospice room 513.
--- NOTE | 2019-04-03 18:05 | NUR ---
SS consult regarding hospice eval. Pt is early transitioning and nonverbal. Pt has 3 sister present but Dora is the POA. discussed the hospice program and family is in agreeance but states pt has no where to go. Family requesting a hospice home. Discussed with family no hospice homes but there options of board and care as well as skilled nursing placement. Family states pt's income is $900 approximately but its been used for this month already. Provided family with list of hospice agencies and choice letter. Family requested [facility]. Contacted [facility] sales representative door to door, and faxed requested medical information. also providing assistance in locating placement for family and requested that I contact [facility]. Provided medical information to Calin, [facility] recreation activities coordinator , and pt accepted for admission. Pt to be transported by [facility] at 1800 by safia. Family verbalized understanding and agreeance with d/c plan. Addendum: 04/03/19 at 1814 by MICKY LEONARDO Amended: Links added.
== END 2019-04-02 20:20 | disposition hospice, inpatient (51) | DRG 130 ==
LOC: EDUNIT# 07:53 → EDBD 07:53 → ER 07:53 → OVERFLOW 09:42 → ICU WEST 10:09 → EAST 04-01 13:40
PROVIDERS: ADMIT Nurse Practitioner Acute Care; ATTEND Internal Medicine Pulmonary Disease
PROC: 05H533Z Insertion of Infusion Device into Right Subclavian Vein, Percutaneous Approach (ICD-10-PCS; principal; 2019-03-17)
PROC: 5A1955Z Respiratory Ventilation, Greater than 96 Consecutive Hours (ICD-10-PCS; 2019-03-17)
PROC: 0BH17EZ Insertion of Endotracheal Airway into Trachea, Via Natural or Artificial Opening (ICD-10-PCS; 2019-03-17)
PROC: 5A12012 Performance of Cardiac Output, Single, Manual (ICD-10-PCS; 2019-03-17)
PROC: 5A1D70Z Performance of Urinary Filtration, Intermittent, Less than 6 Hours Per Day (ICD-10-PCS; 2019-03-17)
PROC: 5A1D70Z Performance of Urinary Filtration, Intermittent, Less than 6 Hours Per Day (ICD-10-PCS; 2019-03-19)
PROC: 5A1D70Z Performance of Urinary Filtration, Intermittent, Less than 6 Hours Per Day (ICD-10-PCS; 2019-03-21)
PROC: 5A1D70Z Performance of Urinary Filtration, Intermittent, Less than 6 Hours Per Day (ICD-10-PCS; 2019-03-24)
PROC: 5A1D70Z Performance of Urinary Filtration, Intermittent, Less than 6 Hours Per Day (ICD-10-PCS; 2019-03-26)
DX: J96.22 Acute and chronic respiratory failure with hypercapnia (principal); I46.9 Cardiac arrest, cause unspecified; G93.1 Anoxic brain damage, not elsewhere classified; G93.41 Metabolic encephalopathy; I13.2 Hypertensive heart and chronic kidney disease with heart failure and with stage 5 chronic kidney disease, or end stage renal disease; E44.0 Moderate protein-calorie malnutrition; I95.9 Hypotension, unspecified; E87.2 Acidosis; N18.6 End stage renal disease; E87.1 Hypo-osmolality and hyponatremia; J44.1 Chronic obstructive pulmonary disease with (acute) exacerbation; T82.868A Thrombosis due to vascular prosthetic devices, implants and grafts, initial encounter; E87.5 Hyperkalemia; I16.1 Hypertensive emergency; D63.1 Anemia in chronic kidney disease; D53.9 Nutritional anemia, unspecified; G40.909 Epilepsy, unspecified, not intractable, without status epilepticus; K59.00 Constipation, unspecified; M19.90 Unspecified osteoarthritis, unspecified site; E78.5 Hyperlipidemia, unspecified; R73.9 Hyperglycemia, unspecified; Y83.2 Surgical operation with anastomosis, bypass or graft as the cause of abnormal reaction of the patient, or of later complication, without mention of misadventure at the time of the procedure; Z66 Do not resuscitate; Z51.5 Encounter for palliative care; I50.43 Acute on chronic combined systolic (congestive) and diastolic (congestive) heart failure; Y92.238 Other place in hospital as the place of occurrence of the external cause; K21.9 Gastro-esophageal reflux disease without esophagitis; Z99.2 Dependence on renal dialysis; Z87.11 Personal history of peptic ulcer disease; Z79.899 Other long term (current) drug therapy; Z83.3 Family history of diabetes mellitus; Z82.49 Family history of ischemic heart disease and other diseases of the circulatory system; Z84.1 Family history of disorders of kidney and ureter; Z88.6 Allergy status to analgesic agent; Z68.21 Body mass index [BMI] 21.0-21.9, adult
CPT/HCPCS: 36415; 36556; 36600; 51702; 70450; 71045; 71250; 73590; 80048; 80053; 80074; 82040; 82140; 82728; 82805; 82962; 83036; 83540; 83550; 83605; 83735; 84100; 84439; 84443; 84478; 84484; 85014; 85018; 85025; 85379; 85610; 85730; 87040; 87070; 87081; 87205; 90935; 92950; 93005; 93971; 94002; 94003; 94640; 94761; 96365; 97110; 97163; 99291; A4618; G0378; J0610; J0696; J0885; J1642; J1815; J2250; J2543; J3490; J7131